=== PATIENT | female | born 1955 | race Caucasian/White ===

== ENCOUNTER → 2020-08-16 15:07 | Outpatient (CLI) | payer OTHER, SELFPAY ==
--- NOTE | ~2020-08-16 | MR_ITS ---
EXAMINATION: MR foot LT wo/w con DATE: 08/16/2020 16:07 INDICATION: Metatarsalgia at the left foot with lesion of the plantar nerve. TECHNIQUE: Magnetic resonance imaging (MRI) of the left fore/mid foot was performed without and with 10 mL Multihance intravenous contrast. Sequences included axial, sagittal and coronal T1-weighted FSE , axial and coronal T2-weighted FS FSE, sagittal fluid sensitive FSE STIR, axial T1-weighted FS FSE a nd postcontrast axial, sagittal and coronal T1-weighted FS FSE. A marker was placed at the site of ma ximal pain which is positioned plantar to the third toe. COMPARISON: None FINDINGS: Mild hallux valgus. Alignment is otherwise normal. Normal bone marrow signal throughout. No fracture or pathologic marrow replacing process. Mild osteoarthritis at the first metatarsophalangeal joint wi th mild subarticular edema at the articulation between the head of the first metatarsal and the tibia l sesamoid. Joint spaces are otherwise normal with no joint effusions. Lisfranc ligament complex and the collateral ligament complex at the metatarsophalangeal and interphalangeal joints are normal. The re is a 7 x 3 x 4 mm enhancing enhancing lesion in the subcutaneous tissues between the more superfic ial plantar aponeurosis and the deeper flexor digitorum brevis myotendinous junction located plantar to the head of the second metatarsal. No other abnormally enhancing lesions identified. Intrinsic mus cles which are of the foot is unremarkable. IMPRESSION: 1. 7 x 3 x 4 mm enhancing lesion plantar to the head of the second metatarsal with expected course of the common plantar digital nerve supplying the lateral side of the second toe and medial side of the right third toe. Unclear whether this represents a contrast-enhanced vascular structure or nonspecif ic enhancing soft tissue nodule with wide differential which would include schwannoma or neurofibroma . Reviewed, dictated and finalized at location A. IMPRESSION: 1. 7 x 3 x 4 mm enhancing lesion plantar to the head of the second metatarsal w ith expected course of the common plantar digital nerve supplying the lateral s thomas of the second toe and medial side of the right third toe. Unclear whether t his represents a contrast-enhanced vascular structure or nonspecific enhancing soft tissue nodule with wide differential which would include schwannoma or angel rofibroma.
[2020-08-16 15:32] LABS: Estimated Glomerular Filt Rate > 60
== END ==
PROVIDERS: PCP Family Medicine; Visit Provider Podiatrist Foot & Ankle Surgery
DX: G57.62 Lesion of plantar nerve, left lower limb (principal)
CPT/HCPCS: 73720; A9577

== ENCOUNTER → 2021-08-22 15:22 | Outpatient (CLI) | payer OTHER, SELFPAY ==
--- NOTE | ~2021-08-22 | CT_ITS ---
EXAMINATION: CT foot LT wo con DATE: 08/22/2021 15:46 INDICATION: Metatarsalgia with pain at the left second toe and metatarsal post surgery. TECHNIQUE: High resolution computed tomography (CT) of the left foot was performed without intravenou s contrast. Additional sagittal and coronal reconstructions were performed. Automated exposure contro l and iterative reconstruction technique were employed. The dose-length product was 182.36 mGy-cm. COMPARISON: MRI dated 08/16/2020 FINDINGS: Mild hallux valgus. Alignment is otherwise normal. Screw fixation at the head of the second metatarsal. The screw enters dorsally near the along the mar gin of the articular surface. There is chronic mild erosions with corticated margins along side the s crew as it enters the first metatarsal head as well as along the juxtaposed dorsal proximal articular surface of the second proximal phalanx. There is mild secondary osteoarthritis at the joint space. A dditional mild osteoarthritis at the first metatarsophalangeal joint and the second and third tarsal metatarsal joints. Soft tissues are unremarkable. IMPRESSION: 1. Mild osteoarthritis at the second metatarsophalangeal joint with small erosions at the dorsal head of the second metatarsal and juxtaposed dorsal proximal articular surface of the second proximal pha lanx which are likely related to the presence of a fixation screw at the head of the second metatarsa l. Reviewed, dictated and finalized at location B. IMPRESSION: 1. Mild osteoarthritis at the second metatarsophalangeal joint with small erosi ons at the dorsal head of the second metatarsal and juxtaposed dorsal proximal articular surface of the second proximal phalanx which are likely related to th e presence of a fixation screw at the head of the second metatarsal.
== END ==
PROVIDERS: PCP Family Medicine; Visit Provider Podiatrist Foot & Ankle Surgery
DX: M19.072 Primary osteoarthritis, left ankle and foot (principal)
CPT/HCPCS: 73700

== ENCOUNTER 2024-05-01 11:33 | Emergency (ER) | payer MEDICARE, OTHER, SELFPAY ==
--- NOTE | ~2024-05-01 | XR_ITS ---
CHEST RADIOGRAPH, PA AND LATERAL CLINICAL HISTORY: RML coarse; lower lobes diminished; wheezing . COMPARISON: None available TECHNIQUE: PA and lateral views of the chest. FINDINGS The cardiomediastinal silhouette is unremarkable. The lungs are clear. Visualized osseous structures and soft tissues are unremarkable. IMPRESSION: No focal infiltrate or effusion. Reviewed, dictated and finalized at location A. OR CARE PROVIDER
--- OUTSIDE RECORDS SUMMARY | 2024-05-01 11:37 | XMS_ITS | Continuity of Care Document ---
Author Organization [facility] Address [address] [address] [place] [address] Phone Care Team Providers Care Automobile Painter Name Role Phone Adalid CESAR, Melonie Unavailable Unavailable Allergies, Adverse Reactions, Alerts Substance Reaction Status Criticality codeine Active No Information levofloxacin Active No Information CODEINE PHOSPHATE Active No Informa tion acetaminophen Active No Information morphine Active No Information Medications Medication Instructions Dosage Effective Dates (start - stop) Status Comments MAGNESIUM (unknown strength) Not Available - Active TESTOSTERONE (unknown strength) Not Available - Active PROGESTERONE (unknown strength) Not Available - Active IRON (unknown strength) take 1 tablet by oral route 2 times every week Not Available - Active AQUA-E (unknown strength) Not Available - Active DHEA (unknown strength) Not Available - Active INOSITOL (unknown strength) Not Available - Active liothyronine 5 mcg tablet take 2 tablet by oral route every day 10 MCG - Active Probiotic 20 billion cell capsule take 1 capsule by oral route every day - Active H-RPLSKD-B-CYSTEINE (unknown strength) Not Available - Active MELATONIN (unknown strength) take 1-2 60 mg tabs by oral route nightly Not Available - Active ZINC (unknown strength) Not Available - Active ESTROGEN-METHYLTESTO STERONE (unknown strength) Not Available - Active Ryaltris 665 mcg-25 mcg/spray nasal spray spray 1 spray by intranasal route 2 times every day in each nostril 1 spray - Active Advair Diskus 250 mcg-50 mcg/dose powder for inhalation - Active ENZYME DIGEST (unknown strength) Not Available - Active PREGNENOLONE (unknown strength) take 100 mg by oral route 1 time every day Not Available - Active CYTO RALA (unknown strength) take 1 tablet by oral route every day Not Available - Active Wali-E 400 mg tablet take 1 tablet by oral route every other day - Active K2-D3 5000 (unknown strength) Use 10 drops daily Not Available - Active Synthroid 25 mcg tablet take 1 tablet by oral route every day 25 MCG - Active Procedures Procedure Date RADEX KNE COMPL 4/MORE VIEWS DRAIN/INJECT JOINT/BURSA OFFICE/OUTPATIENT VISIT EST RADEX KNE COMPL 4/MORE VIEWS OFFICE/OUTPATIENT VISIT EST Ketorolac tromethamine per 15mg injectio n Ropivacaine HCl injection Drugs unclassified injection DRAIN/INJECT JOINT/BURSA OFFICE/OUTPATIENT VISIT EST RADEX KNE COMPL 4/MORE VIEWS Methylprednisolone 80mg/ml inj 23 Ropivacaine HCl injection DRAIN/INJECT JOINT/BURSA OFFICE/OUTPATIENT VISIT EST Methylprednisolone 80mg/ml inj 23 Drugs unclassified injection DRAIN/INJECT JOINT/BURSA OFFICE/OUTPATIENT VISIT EST RADEX KNE 1/2 VIEWS Methylprednisolone 80mg/ml inj 23 Drugs unclassified injection DRAIN/INJECT JOINT/BURSA OFFICE/OUTPATIENT VISIT EST OFFICE/OUTPATIENT VISIT EST MRI JT Lower w/o Contrast X-RAY HIP UNI W PELVIS 2-3 VIEWS 2022 OFFICE/OUTPATIENT VISIT EST X-RAY HIP UNI W PELVIS 2-3 VIEWS 2021 Methylprednisolone 40mg/ml inj 22 Drugs unclassified injection DRAIN/INJECT JOINT/BURSA OFFICE/OUTPATIENT VISIT NEW Advance Directives Directive Yes / No Effective Date File Name No Information Encounters Encounter Description Practice Location Reason(s) For Visit Diagnoses Date Provider Providers Copied on Encounter OFFICE/OUTPA TIENT VISIT EST [facility], [address] [facility] [address], [place], [address], [place] tel:[phone] [facility] Primary osteoarthritis of left kneeRight knee pain, unspecified chronicityCont usion of right knee, initial encounterEffus ion of right knee 4 Adalid Melonie. [address], [place], [place], [address], [place]. tel:[phone] Referring Provider: Willy Rivera, [address] [place] [address], [place], [address] . tel:[phone] OFFICE/OUTPA TIENT VISIT EST [facility], [address] [facility] [address], [place], [address], [place] tel:[phone] [facility] Primary osteoarthritis of left knee 4 Adalid Melonie. [address], [place], [place], [address], [place]. tel:[phone] OFFICE/OUTPA TIENT VISIT EST [facility], [address] [address], [place], [address], [place] tel:[phone] [facility] Primary osteoarthritis of left knee 4 Adalid Melonie. [address], [place], [place], [address], [place]. tel:[phone] OFFICE/OUTPA TIENT VISIT EST [facility], [address] [facility] [address], [place], [address], [place] tel:[phone] [facility] Primary osteoarthritis of left knee 3 Adalid Melonie. [address], [place], [place], [address], [place]. tel:[phone] OFFICE/OUTPA TIENT VISIT EST [facility], [address] [facility] [address], [place], [address], [place] tel:[phone] [facility] Primary osteoarthritis of left knee Sep-04 27- 3 Adalid Wilhelm. [address], [place], [place], [address], [place]. tel:[phone] OFFICE/OUTPA TIENT VISIT EST [facility], [address] [facility] [address], [place], [address], [place] tel:[phone] [facility] Pain in left kneePrimary osteoarthritis of left knee Jun- 3 Osman Serna. [address], [place], [address]. tel:[phone] OFFICE/OUTPA TIENT VISIT EST [facility], [address] [facility] [address], [place], [address], [place] tel:[phone] [facility] Primary osteoarthritis of right hip Feb- 3 Pj Beltran. [address], [place], [place], [address]. tel:[phone] [facility], [address] [facility] [address], [place], [address], [place] tel:[phone] [facility] Pain in right hip b-2 0- 3 No Information Referring Provider: Ruby florentino, [address] [facility] [address], [place], [address] . tel:[phone] OFFICE/OUTPA TIENT VISIT EST [facility], [address] [facility] [address], [place], [address], [place] tel:[phone] [facility] Trochanteric bursitis of right hipPain in right hipPrimary osteoarthritis of right hip b- 3 Osman Serna. [address], [place], [address]. tel:[phone] Referring Provider: Mikal Christianson, [address], [place], [address]. tel:[phone] OFFICE/OUTPA TIENT VISIT NEW [facility], [address] [facility] [address], [place], [address], tel:[phone] [facility] Pain in right hipTrochanteri c bursitis of right hip Dedraalmas Charless. [address], [place], [place], [address]. tel:[phone] Referring Provider: Reji Marroquin M, [address], [place], [address]. tel:[phone] Family History Family Member Type Diagnosis Age At Onset Mother Problem Cancer, cervical Mother Problem Hypertension Sister Problem Cardiovascular disease Mother Problem Cancer, breast Father Problem Cardiovascular disease Payers Payer name Insurance type Covered democrat ID Jesse madrid(s) Medicare E2 OT [id number] [employer] - [facility] HMO/OAP/QCHP OT [id number] Social History Type Description Quantity Date Captured Comments Alcohol Use Details Unknown Caffeine Use Details Unknown Tobacco Use Status No Information Smoking Status No Information Sex Female Chief Complaint And Reason For Visit No Information Reason For Referral Reason For Referral No Information Plan Of Treatment Date Type Action Status Referral Ordered: RADEX KNE COMPL 4/MORE VIEWS Bilateral knee ordered Referral Ordered: RADEX KNE COMPL 4/MORE VIEWS RT knee ordered Referral Ordered: RADEX KNE COMPL 4/MORE VIEWS LT knee ordered Referral Ordered: RADEX KNE 1/2 VIEWS LT knee ordered Referral Ordered: MRI JT Lower w/o Contrast RT hip Appointment date/timeframe: 05/12/2022 ordered Referral Ordered: X-RAY HIP UNI W PELVIS 2-3 VIEWS RT hip ordered Appointment [place] Scheduled Patient Education Knee Arthritis: Exercis es completed Patient Education Hip Arthritis: Exercise s completed Patient Education Hip Bursitis: Exercises completed History Of Present Illness Encounter Date Complaint History Of Prese nt Illness No Information Functional Status Date Functional Assessmen t No Information Instructions Date Instruction Additional Infor mation No Information Assessments Type Assessment Date assessment Primary osteoarthritis of left k nee assessment Right knee pain, unspecified chr onicity assessment Contusion of right knee, initial encounter assessment Effusion of right knee 24 Patient Care Teams Name Effective Dates (start - stop) Status Members No Information
--- OUTSIDE RECORDS SUMMARY | 2024-05-01 11:39 | XMS_ITS | Encounter Summary ---
Author Organization [facility] Address [facility] [place] [address] Care Team Providers Care Floor Framer Name Role Phone Mikal Guevara MD Primary Care Provider [phone] Chip Claire DO Primary Care Provider [place] Dyer [facility] Primary Care Provid er Encounter Details Date Type Department Care Team (Late st Contact Info) Description 08/28/2018 Abstract [facility] CONVERSION [address] [place] [address] , Generic ConversionMD Social History Tobacco Use Types Packs/Day Years Used Date Smoking Tobacco: Never Assessed Comments Unknown Sex and Gender Information Value Date Recorded Sex Assigned at Not on file Legal Sex Female 7:24 PM CDT Gender Identity Not on file Sexual Orientation Not on file documented as of this encounter Plan of Treatment Not on file documented as of this encounter Visit Diagnoses Not on filedocumented in this encounter Additional Health Concerns Infection Onset Date Last Indicated Resolved Time COVID-19 Rule Out 04/28/2020 04/28/2020 04/29/2020 3:56 PM CAREER DEVELOPER COVID-19 Rule Out 12/08/2022 12/08/2022 12/08/2022 3:30 PM CDT documented as of this encounter Care Teams Floor Framer Relationship Specialty Start Date End Date Mikal Guevara MD PCP - General 05/16/15 08/12/21 Chip lCaire DO PCP - General FAMILY PRACTICE 08/13/21 06/26/23 [place] Dyer, CORSET MAKER- [address] [place] [address] PCP - General Nurse Practitioner Family 06/27/23 documented as of this encounter
--- OUTSIDE RECORDS SUMMARY | 2024-05-01 11:39 | XMS_ITS | Encounter Summary ---
Author Organization [facility] Address [address] [facility] [place] [address] Care Team Providers Care Form Presser Name Role Phone Unavailable Primary Care Provider Unavailabl e Encounter Details Date Type Department Care Team (Late st Contact Info) Description 05/14/2021 Lab Requisition [facility] DermPath Lab [address] [facility] [place] [address] Jose Salvador MD [address] [address] Social History Tobacco Use Types Packs/Day Years Used Date Smoking Tobacco: Never Alcohol Use Standard Drinks/Week Comments Yes 0 (1 standard drink = 0.6 oz pur e alcohol) Sex and Gender Information Value Date Recorded Sex Assigned at Not on file Gender Identity Not on file Sexual Orientation Not on file documented as of this encounter Plan of Treatment Not on file documented as of this encounter Procedures Procedure Name Priority Date/Time Associated Diagnosis Comments DERMATOPATHOLOGY Routine 05/14/2021 12:0 0 AM MANAGER FOREIGN documented in this encounter Results * DERMATOPATHOLOGY (05/14/2021 12:00 AM MANAGER FOREIGN) Case Report Dermatopathology Report Case: [id number] Authorizing Provider: Jose Salvador MD Collected: 05/14/2021 12:00 AM Ordering Location: [facility] DermPath Lab Received: 05/14/2021 04:43 PM Pathologist: Marlen Farris MD Specimen: Skin, right upper pinzon 10:58 AM [facility] DERMATOPATHOLOGY LABORATORY Final Diagnosis Specimen A. SKIN, right upper pinzon: SUPERFICIAL PORTIONS OF SQUAMOUS CELL CARCINOMA ARISING IN A SQUAMOUS CELL CARCINOMA IN SITU (C44.722) (see microscopic description) 2 10:58 AM [facility] DERMATOPATHOLOGY LABORATORY Clinical History SK vs BCCA vs MM. Path # [id number]. 10:58 AM [facility] DERMATOPATHOLOGY LABORATORY Gross Description Specimen A: Received is one formalin filled container labeled with the patient's name and designated right upper pinzon. The specimen consists of a shave biopsy measuring [id number]. Jar 0. 10:58 AM [facility] DERMATOPATHOLOGY LABORATORY Microscopic Description Specimen A. SKIN, right upper pinzon: The epidermis shows parakeratosis, full thickness disorderly maturation of keratinocytes, mitoses at different levels, and dyskeratotic cells. Focal nests are present in the dermis. 10:58 AM [facility] DERMATOPATHOLOGY LABORATORY Disclaimer An external and internal positive and negative controls are appropriate for the histochemical, immunohistochemical and immunofluorescence stain(s) in this case (if any), except where stated explicitly. The performance characteristics of the stain(s) cited in this report were developed and its performance characteristic determined by the Dermatopathology Laboratory at [facility], directed by Dr. Joel Alejo. These tests need not be, and therefore are not, approved by the [place] Food and Drug Administration. The tests are used for clinical purposes. Billing Codes Specimen Charges Stain Charges 61851 1 2 10:58 AM [facility] DERMATOPATHOLOGY LABORATORY Embedded Images 10:58 AM [facility] DERMATOPATHOLOGY LABORATORY Pathology/Cytolog y TISSUE SPECIMEN FROM SKIN / Unknown 05/14/2021 05/14/2021 4:43 PM MANAGER FOREIGN Jose Salvador MD LAB - PATHOLOGY/CYTO LOGY ORDERABLES DERMATOPATHOLOGY LABORATORY [facility] - Department of Dermatology [address] [phone] documented in this encounter Visit Diagnoses Not on filedocumented in this encounter
--- OUTSIDE RECORDS SUMMARY | 2024-05-01 11:39 | XMS_ITS | Encounter Summary ---
Author Organization [facility] Address [address] [place] [address] Care Team Providers Care Report Checker Name Role Phone Unavailable Primary Care Provider Unavailabl e Encounter Details Date Type Department Care Team (Late st Contact Info) Description 02/29/2020 Lab Requisition [facility] DermPath Lab [address] [place] [address] Jose Salvador MD [address] [place] [address] Social History Tobacco Use Types Packs/Day [...] Priority Date/Time Associated Diagnosis Comments DERMATOPATHOLOGY Routine 02/28/2020 12:0 0 AM CLINICAL NUTRITIONIST documented in this encounter Results * DERMATOPATHOLOGY (02/28/2020 12:00 AM CLINICAL NUTRITIONIST) Case Report Dermatopathology Report Case: [id number] Authorizing Provider: Jose Salvador MD Collected: 02/28/2020 12:00 AM Ordering Location: [facility] DermPath Lab Received: 02/29/2020 06:26 AM Pathologist: Hope Alejo MD Specimen: Skin, right chest 0 2:42 PM CLINICAL NUTRITIONIST DERMATOPATHOLOGY LABORATORY Final Diagnosis Specimen A. SKIN, right chest: SQUAMOUS CELL CARCINOMA IN SITU, PRESENT AT THE BASE OF THE SPECIMEN (D04.5) (see microscopic description and comment) 0 2:42 PM CLINICAL NUTRITIONIST DERMATOPATHOLOGY LABORATORY Clinical History BCCA vs SCCA. Path # [id number]. 0 2:42 PM CLINICAL NUTRITIONIST DERMATOPATHOLOGY LABORATORY Gross Description Specimen A: Received is one formalin filled container labeled with the patient's name and designated right chest. The specimen consists of a shave biopsy measuring [id number]. Jar 0. 0 2:42 PM [facility] DERMATOPATHOLOGY LABORATORY Microscopic Description Specimen A. SKIN, right chest: The epidermis shows parakeratosis, full thickness disorderly maturation of keratinocytes, mitoses at different levels, and dyskeratotic cells. The lesion extends to the base of the biopsy. COMMENT: An invasive squamous cell carcinoma cannot be ruled out. 0 2:42 PM CLINICAL NUTRITIONIST DERMATOPATHOLOGY LABORATORY Disclaimer An external and internal positive and negative controls are appropriate for the histochemical, immunohistochemical and immunofluorescence stain(s) in this case (if any), except where stated explicitly. The performance characteristics of the stain(s) cited in this report were developed and its performance characteristic determined by the Dermatopathology Laboratory at [facility], directed by Dr. Joel Alejo. These tests need not be, and therefore are not, approved by the [place] Food and Drug Administration. The tests are used for clinical purposes. Billing Codes Specimen Charges Stain Charges 57266 1 0 2:42 PM CLINICAL NUTRITIONIST DERMATOPATHOLOGY LABORATORY Embedded Images 0 2:42 PM CLINICAL NUTRITIONIST DERMATOPATHOLOGY LABORATORY Pathology/Cytolog y TISSUE SPECIMEN FROM SKIN / Unknown 02/28/2020 02/29/2020 6:26 AM CLINICAL NUTRITIONIST Jose Salvador MD LAB - PATHOLOGY/CYTO LOGY ORDERABLES DERMATOPATHOLOGY LABORATORY [facility] - Department of Dermatology [address] [phone] documented in this encounter Visit Diagnoses Not on filedocumented in this encounter
--- OUTSIDE RECORDS SUMMARY | 2024-05-01 11:39 | XMS_ITS | Encounter Summary ---
Author Organization [facility] Address [address] [place] [address] Care Team Providers Care Build Master Name Role Phone Unavailable Primary Care Provider Unavailabl e Encounter Details Date Type Department Care Team (Late st Contact Info) Description 05/21/2022 Lab Requisition [facility] DermPath Lab [address] [facility] [address] [place] [address] Jose Salvador MD [address] [place] [address] Social History Tobacco Use Types Packs/Day [...] Priority Date/Time Associated Diagnosis Comments DERMATOPATHOLOGY Routine 05/20/2022 12:0 0 AM REGIONAL OPERATIONS MANAGER documented in this encounter Results * DERMATOPATHOLOGY (05/20/2022 12:00 AM REGIONAL OPERATIONS MANAGER) Case Report Dermatopathology Report Case: [id number] Authorizing Provider: Jose Salvador MD Collected: 05/20/2022 12:00 AM Ordering Location: [facility] DermPath Lab Received: 05/21/2022 06:36 AM Pathologist: Dana Aburto MD Specimens: A) - Skin, left shoulder B) - Skin, right med upper ankle 3 2:26 PM [facility] DERMATOPATHOLOGY LABORATORY Final Diagnosis Specimen A. SKIN, left shoulder: SQUAMOUS CELL CARCINOMA, WELL DIFFERENTIATED (C44.629) Specimen B. 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 The specimen consists of a shave biopsy measuring 5x5x1 mm. Jar 0. Specimen B: Received is one formalin filled container labeled with the patient's name and designated right med upper ankle. The specimen consists of a shave biopsy measuring 7x6x1 mm. Jar 0. 3 2:26 PM [facility] DERMATOPATHOLOGY LABORATORY Microscopic Description Specimen A. SKIN, left shoulder: Arising in the epidermis and extending into the dermis there are irregularly shaped aggregates of keratinocytes showing evidence of premature cornification. Specimen B. SKIN, right med upper ankle: The epidermis shows parakeratosis, full thickness disorderly maturation of keratinocytes, mitoses at different levels, and dyskeratotic cells. 3 2:26 PM [facility] DERMATOPATHOLOGY LABORATORY Disclaimer An external and internal positive and negative controls are appropriate for the histochemical, immunohistochemical and immunofluorescence stain(s) in this case (if any), except where stated explicitly. The performance characteristics of the stain(s) cited in this report were developed and its performance characteristic determined by the Dermatopathology Laboratory at [facility], directed by Dr. Joel Alejo. These tests need not be, and therefore are not, approved by the [place] Food and Drug Administration. The tests are used for clinical purposes. Billing Codes Specimen Charges Stain Charges 91653 41535 1 1 3 2:26 PM REGIONAL OPERATIONS MANAGER DERMATOPATHOLOGY LABORATORY Embedded Images 2:26 PM REGIONAL OPERATIONS MANAGER DERMATOPATHOLOGY LABORATORY Pathology/Cytology TISSUE SPECIMEN FROM SKIN / Unknown 05/20/2022 05/21/2022 6:36 AM REGIONAL OPERATIONS MANAGER Miscellaneous samples (specimen) TISSUE SPECIMEN FROM SKIN / Unknown 05/20/2022 05/21/2022 6:36 AM REGIONAL OPERATIONS MANAGER Jose Salvador MD LAB - PATHOLOGY/CYTO LOGY ORDERABLES DERMATOPATHOLOGY LABORATORY [facility] - Department of Dermatology [facility] Medicine [address] [place] [address], [address] [phone] documented in this encounter Visit Diagnoses Not on filedocumented in this encounter
--- OUTSIDE RECORDS SUMMARY | 2024-05-01 11:39 | XMS_ITS | Referral Summary ---
Author Organization [facility] Address [address] [place] [address] Care Team Providers Care Delivery Recruiter Name Role Phone Donnell Mujica MD Unavailable [phone] Willy Rivera MD Primary Care Provider [phone] Allergies Active Allergy Reactions Criticality Noted Date Comments Chlorzoxazone Unknown 05/29/2014 Codeine Other (See comments) Low 09/22/2023 Heart racing Gluten Unknown 12/22/2012 Celiac disease House Dust Unknown 11/18/2022 Levofloxacin Other (See comments) Low 05/05/2011 Heart racing Mold Unknown 11/18/2022 Morphine Other (See comments) Low 01/05/2014 Heart racing Wheat Other (See comments) Low 11/18/2022 celciac Medications albuterol HFA (PROVENTIL HFA,VENTOLIN HFA,PROAIR HFA) 90 mcg/actuation inhaler Inhale 1-2 puffs 3 Active ascorbic acid (VITAMIN C) 1,000 mg tablet Take 2 tablets (2,000 mg total) by mouth daily Active testosterone micronized, bulk, 100 % powder by other route PELLET 200MG PELLET EVERY 3 MONTHS WHEN PELLET WORN DOWN USE 1 MG DAILY Active levothyroxine (SYNTHROID) 25 mcg tablet Take 1 tablet (25 mcg total) by mouth 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 Do not swallow. 60 each 5 4 Active Additional Information Patient not taking.Reported on 09/22/2023 acetylcysteine 500 mg capsule take 1 capsule by oral route 1-2 times every day Active cholecalciferol , vitD3,/vit K2 (vitamin D3-vitamin K2) 125-90 mcg capsule Use 10 drops daily Active ferrous sulfate 325 mg (65 mg of elemental iron) tablet Take 45 mg by mouth daily with breakfast 3 Active UNABLE TO FIND Med Name: 1. Alpha base capsule with iron one daily, 2. ANNATTO E SYNERGY 125 MG ONE Thursday AND THURSDAY, 3. VITAMIN E MIXED TOCOPHEROLS 1 DAILY AND 2 TABLET THURSDAY AND THURSDAY. 4. ENYZMES WITH MEAL 500 MG 2 WITH MEALS. 5. CARDIO B ONE DAILY, 6. DHEA 10 MG BEDTIME, 7. GREEN TEA DAILY, 8. CDG ESTRO DIM 300MG 2-1 TABS DAILY, 9. IODINE SYNERGY 10,000 1 TABLET 5 TIMES WEEKLY, 10. L-GLUTATHIONE 25 MG ONE DAILY, 11. MAGNESIUM TAURATE 125 MG NIGHTLY, 12. PREGNENOLONE 100 MG DAILY, PRO DHA OMEGA DAILY, 13. R LIOPIC ACID DBIOTIIB DAILY, 14. SAME LIQUID 72 MG DAILY, 15. TUDCA 100MG BID, 16. ZINC SUMPREME DAILY. THESE ALL ARE OTC SUPPLEMENTS Active magnesium amino acid chelate 100 mg tabletIndicatio ns:hypomagnesem ia Take 3.5 tablets (350 mg total) by mouth every other day 350MG 3 TABS AT NIGHT AND ONE DAILY IN AM Active melatonin 10 mg tablet Take 6 tablets (60 mg total) by mouth nightly Active acidophilus-pec tin, citrus 100 million cell-10 mg capsule Take 1 Caplet by mouth daily Active fluticasone propion-salmete roL (ADVAIR DISKUS) 250-50 mcg/dose diskus inhaler Inhale 1 puff daily as needed Rinse mouth with water after use. Do not swallow. Active estrogens, conjugated, (PREMARIN) vaginal cream Insert into the vagina daily 0.1-0.2 DAILY Active progesterone, micronized (progesterone, bulk,) 100 % powder Place 1.5 mg under the tongue every other day 6 DAYS BEDTIME HOLD ON THURSDAY Active UNABLE TO FIND - ENTER DRUG NAME IN NOTES TO PHARMACY MED NAME - RYALTRIS ONE SPRAY BID EACH NOSTIL Active liothyronine (CYTOMEL) 5 mcg tablet Take 1 tablet (5 mcg total) by mouth daily Active HYDROcodone-raul taminophen (NORCO) 5-325 mg per tabletIndicatio ns:Pain Take 1 tablet by mouth every 6 (six) hours as needed for pain 30 tablet 4 Active Active Problems Problem Noted Date Diagnosed Date Primary osteoarthritis of right hip 09/09/2023 Primary osteoarthritis of left knee 09/09/2023 Shortness of breath 10/07/2022 Assessment & Plan (03/19/2023 3:36 PM FOOD AND BEVERAGE INTERN): The patient has been doing very well with Advair HFA 230/21 1 puff daily and p.r.n. albuterol. I will hold off on another methacholine challenge at this time. She will follow up here in 6 months. Assessment & Plan (11/18/2022 11:53 AM CDT): The patient states that her symptoms have improved with use of Advair 1 puff daily. She is an albuterol inhaler to use on a p.r.n. basis. She will follow-up with me in 4 months. I will hold off on another methacholine challenge or formal exercise study for now. Assessment & Plan (10/07/2022 4:07 PM CDT): The patient had a negative methacholine challenge in the past. He has been wheezing and had shortness of breath several times earlier this year and did have COVID twice since 2020. I will check a chest x-ray in full PFTs and she will follow up here in 1 month. I did tell her to continue with the Flonase 2 puffs in the morning and Vicky at bedtime. I also told her to continue with Advair 250/51 puff b.i.d.. Hypothyroidism 08/17/2014 Cervical radiculopathy 08/17/2014 Lumbar radiculopathy 08/17/2014 Arthralgia of shoulder 03/06/2014 Degeneration of intervertebral disc of cervical region 01/05/2014 Knee pain 12/19/2013 Asthma 12/22/2012 Assessment & Plan (05/18/2020 8:51 AM FOOD AND BEVERAGE INTERN): The patient has a history of asthma and recently has developed dyspnea and cough. I have recommended proceeding with a methacholine challenge and I will also check a chest x-ray in an IgE level. Her eosinophil count was within normal limits on recent blood work. If the methacholine challenge is positive, I would recommend restarting Advair, Symbicort or Breo. Celiac disease 12/22/2012 Acute bronchospasm 07/30/2012 Allergic rhinitis 07/30/2012 Assessment & Plan (06/15/2020 9:53 AM CDT): Patient will continue to use her albuterol inhaler as needed up to 4 times a day for shortness of breath. Informed that if she does use her albuterol inhaler more than 2 times a week to call in to the clinic for a inhaler with steroid in it. The patient verbalized understanding. Neck pain 05/05/2011 Arm pain 05/24/2009 Resolved Problems Problem Noted Date Diagnosed Date Resolved Date BYRD (dyspnea on exertion) 06/15/2020 Social History Tobacco Use Types Packs/Day Years Used Date Smoking Tobacco: Never Smokeless Tobacco: Never AUDIT-C Answer Date Recorded Q1: How often do you have a drink containing alc ohol? Monthly or less 09/25/2023 Q2: How many drinks containi ng alcohol do you have on a typical day when you are drinking? 1 or 2 09/25/2023 Q3: How often do you have si x or more drinks on one occasion? Never 09/25/2023 Personal Safety Answer Date Recorded Have you ever been in or are you currently in a harmful physical or emotional relationship or is someone making you feel afraid or unsafe? Denies 09/25/2023 Comments Unknown Sex and Gender Information Value Date Recorded Sex Assigned at Not on file Legal Sex Female 5:18 AM FOOD AND BEVERAGE INTERN Gender Identity Not on file Sexual Orientation Not on file Last Filed Vital Signs Vital Sign Reading Time Taken Comments Blood Pressure 110/50 09/25/2023 3:25 PM CDT Pulse 62 09/25/2023 3:25 PM CDT Temperature 36.2 C (97.2 F) 09/25/2023 1:58 PM CDT Respiratory Rate 16 09/25/2023 3:25 PM CDT Oxygen Saturation 98% 09/25/2023 3:25 PM CDT Inhaled Oxygen Concentration - - Weight 53.1 kg (117 lb) 09/22/2023 3:07 PM CDT Height 165.1 cm (5' 5 ) 09/22/2023 3:07 PM CDT Body Mass Index 19.47 09/22/2023 3:07 PM CDT Plan of Treatment Not on file Medical Devices Implanted Type Area Green Building Architect Device Identifier Shelf Expiration Date Model / Serial / Lot Cervical And Lumbar Surgery Hardware Present N/A: Cervical-Denae mbar Spine [employer]/C R Bard Mesh Surgical Inguinal Hernia Synthetic Patch 3dmax 5x7in [id number] - [id number] Implanted:Qty: 1 on 09/25/2023 by Michael Simmons MD at [facility] Left: Abdomen [employer]/C R Bard [id number] 01/18/2028 [id number] / / [id number] Procedures Procedure Name Priority Date/Time Associated Diagnosis Comments DEXA AXIAL SKELETON BONE DENSITY 1 OR MORE SITES Routine 07/03/2017 9:00 AM CDT from Last 3 Months or Most Recently Relevant to Health Maintenance Results * Dexa Axial Skeleton Bone Density 1 or 2 Site (07/03/2017 9:00 AM CDT) Anatomical Region Laterality Modality Body N/A Radiographic Jeannie ging 07/03/2017 9:00 AM CDT Impressions 07/03/2017 10:37 AM CDT Low bone mass. FRAX as above. Bone mineral density: Normal (T-score above or = -1.0) Low bone mass (T-score between -1.0 and -2.5) replaces the previously used term osteopenia Osteoporosis (T-score = or below -2.5) Medical evaluation for secondary causes of low bone mineral density may be appropriate. FRAX is a World Health Organization validated fracture risk assessment tool that calculates a person's 10 year probability of a major osteoporosis related fracture and hip fracture. According to the National Osteoporosis Foundation guidelines, postmenopausal women and men age 50 or older with low bone mass and a 10 year probability of a major osteoporosis related fracture = or greater than 20% or a 10 year probability of a hip fracture = or greater than 3% should be considered for treatment. For further information, including treatment recommendations, please refer to the 2013 ISCD Official Positions (http://www.iscd.org) and the NOF's Clinician's Guide to Prevention and Treatment of Osteoporosis (http://www.nof.org/professionals/clinical-guidelines) THIS IS AN ELECTRONICALLY VERIFIED FINAL REPORT 07/03/2017 10:34 AM - Electronically signed by Manny Galicia D.O. BW: QUINTEN Report ID: [id number] Reading Location: [id number] [EOD] Narrative 07/03/2017 10:37 AM CDT EXAM DESCRIPTION: Bone Density Hip/Spine (STD) COMPLETED DATE/TIME: 07/03/2017 9:32 am REASON FOR STUDY: 62 y/o year old F with given history of screening. Green Building Architect/Model: Tumbie A (S/N [id number]) CLINICAL INFORMATION: Current height: 66.5 inches Maximum height: 67 inches Weight: 125 pounds Risk factors: Current previous use of vitamin-D. The patient regularly performed weight-bearing exercise. Patient does not regularly consume dairy ordering caffeinated beverages. COMPARISON: None available. This will serve as a new baseline. Acquisition of a new DXA machine precludes comparison with older exams due to differences in scan type. FINDINGS: AP LUMBAR SPINE L1-L4: Total BMD is 1.163 g/cm2 T-score is 1.1 LEFT HIP: Total BMD is 0.820 g/cm2 T-score is -1.0 Femoral neck BMD is 0.693 g/cm2 T-score is -1.4 Fracture risk assessment (FRAX): 10 year risk for a major osteoporotic fracture is 6.8 % 10 year risk for a hip fracture is 0.6 % The FRAX tool has not been validated in patients currently or previously treated with pharmacotherapy for osteoporosis. In such patients, clinical judgement must be exercised in interpreting FRAX scores as the fracture risk may be overestimated. Procedure Note Provider, MD Van - 08/07/2020 EXAM DESCRIPTION: Bone Density Hip/Spine (STD) COMPLETED DATE/TIME: 07/03/2017 9:32 am REASON FOR STUDY: 62 y/o year old F with given history of screening. Green Building Architect/Model: Tumbie A (S/N [id number]) CLINICAL INFORMATION: Current height: 66.5 inches Maximum height: 67 inches Weight: 125 pounds Risk factors: Current previous use of vitamin-D. The patient regularly performed weight-bearing exercise. Patient does not regularly consumedairy ordering caffeinated beverages. COMPARISON: None available. This will serve as a new baseline. Acquisition of a new DXA machineprecludes comparison with older exams due to differences in scan type. FINDINGS: AP LUMBAR SPINE L1-L4: Total BMD is 1.163 g/cm2 T-score is 1.1 LEFT HIP: Total BMD is 0.820 g/cm2 T-score is -1.0 Femoral neck BMD is 0.693 g/cm2 T-score is -1.4 Fracture risk assessment (FRAX): 10 year risk for a major osteoporotic fracture is 6.8 % 10 year risk for a hip fracture is 0.6 % The FRAX tool has not been validated in patients currently or previously treated with pharmacotherapy for osteoporosis. In such patients, clinical judgement must be exercised in interpreting FRAX scores as the fracturerisk may be overestimated. IMPRESSION: Low bone mass. FRAX as above. Bone mineral density: Normal (T-score above or = -1.0) Low bone mass (T-score between -1.0 and -2.5) replaces the previously used term osteopenia Osteoporosis (T-score = or below -2.5) Medical evaluation for secondary causes of low bone mineral density may be appropriate. FRAX is a World Health Organization validated fracture risk assessmenttool that calculates a person's 10 year probability of a major osteoporosisrelated fracture and hip fracture. According to the National OsteoporosisFoundation guidelines, postmenopausal women and men age 50 or older with low bonemass and a 10 year probability of a major osteoporosis related fracture = or greater than 20% or a 10 year probability of a hip fracture = or greaterthan 3% should be considered for treatment. For further information, including treatment recommendations, please referto the 2013 ISCD Official Positions (http://www.iscd.org) and the NOF's Clinician's Guide to Prevention and Treatment of Osteoporosis (http://www.nof.org/professionals/clinical-guidelines) THIS IS AN ELECTRONICALLY VERIFIED FINAL REPORT 07/03/2017 10:34 AM - Electronically signed by Manny Galicia D.O. BW: QUINTEN Report ID: [id number] Reading Location: [place] [address] [EOD] Betito Dickerson MD IMG DXA PROCEDURES Final Re sult from Last 3 Months or Most Recently Relevant to Health Maintenance [facility] Care Teams Delivery Recruiter Relationship Specialty Start Date End Date Willy Rivera MD [phone] [address] PCP - General Internal Medicine 09/09/23 Donnell Mujica MD [address] [address] Consulting Physician Cardiovascular Disease 09/09/23
--- OUTSIDE RECORDS SUMMARY | 2024-05-01 11:39 | XMS_ITS | Encounter Summary ---
Author Organization [facility] Address [address] [place] [address] Care Team Providers Care Physical Damage Appraiser Name Role Phone Unavailable Primary Care Provider Unavailabl e Encounter Details Date Type Department Care Team (Late st Contact Info) Description 11/19/2022 Lab Requisition [facility] - DermPath Lab [address] [facility] [place] [id number] Jose Salvador MD [address] [place] [address] Social History Tobacco Use Types [...] Priority Date/Time Associated Diagnosis Comments DERMATOPATHOLOGY Routine 11/18/2022 3:33 AM CDT documented in this encounter Results * DERMATOPATHOLOGY (11/18/2022 3:33 AM CDT) Case Report Dermatopathology Report Case: [id number] Authorizing Provider: Jose Salvador MD Collected: 11/18/2022 03:33 AM Ordering Location: [facility] DermPath Lab Received: 11/19/2022 07:10 AM Pathologist: Hope Alejo MD Specimens: A) - Skin, right shoulder B) - Skin, left medial pinzon 4:39 PM [facility] DERMATOPATHOLOGY LABORATORY Final Diagnosis Specimen A. SKIN, right shoulder: BASAL CELL CARCINOMA, SUPERFICIAL MULTIFOCAL (C44.519) Specimen B. SKIN, left medial pinzon: SQUAMOUS CELL CARCINOMA IN SITU, PRESENT AT THE BASE OF THE SPECIMEN (D04.72) (see microscopic description and comment) 4:39 PM [facility] DERMATOPATHOLOGY LABORATORY Clinical History A: BCCA vs SCCA Path#[id number] B: BCCA vs SCCA Path#[id number] 4:39 PM [facility] DERMATOPATHOLOGY LABORATORY Gross Description Specimen A: Received is one formalin filled container labeled with the patient's name and designated right shoulder. The specimen consists of a shave biopsy measuring 9x6x1 mm. Jar 0. Specimen B: Received is one formalin filled container labeled with the patient's name and designated left medial pinzon. The specimen consists of a shave biopsy measuring 6x5x2 mm. Jar 0. 4:39 PM [facility] DERMATOPATHOLOGY LABORATORY Microscopic Description Specimen A. SKIN, right shoulder: Attached to the undersurface of the epidermis, there are small aggregates of basaloid cells with a high nuclear to cytoplasmic ratio and peripheral palisading. Specimen B. SKIN, left medial pinzon: The epidermis shows parakeratosis, full thickness disorderly maturation of keratinocytes, mitoses at different levels, and dyskeratotic cells. The lesion extends to the base of the biopsy. COMMENT: An invasive squamous cell carcinoma cannot be ruled out. 4:39 PM [facility] DERMATOPATHOLOGY LABORATORY Disclaimer An external and internal positive and negative controls are appropriate for the histochemical, immunohistochemical and immunofluorescence stain(s) in this case (if any), except where stated explicitly. The performance characteristics of the stain(s) cited in this report were developed and its performance characteristic determined by the Dermatopathology Laboratory at [facility], directed by Dr. Joel Alejo. These tests need not be, and therefore are not, approved by the [place] Food and Drug Administration. The tests are used for clinical purposes. Billing Codes Specimen Charges Stain Charges 98349 [id number] 1 1 3 4:39 PM CDT DERMATOPATHOLOGY LABORATORY Embedded Images 3 4:39 PM CDT DERMATOPATHOLOGY LABORATORY Pathology/Cytology TISSUE SPECIMEN FROM SKIN / Unknown 11/18/2022 3:33 AM CDT 11/19/2022 7:10 AM CDT Miscellaneous samples (specimen) TISSUE SPECIMEN FROM SKIN / Unknown 11/18/2022 3:33 AM CDT 11/19/2022 7:10 AM CDT Jose Salvador MD LAB - PATHOLOGY/CYTO LOGY ORDERABLES DERMATOPATHOLOGY LABORATORY [facility] - Department of Dermatology [facility] [address] [place] [address], [address] [phone] documented in this encounter Visit Diagnoses Not on filedocumented in this encounter
--- OUTSIDE RECORDS SUMMARY | 2024-05-01 11:39 | XMS_ITS | Clinical Summary ---
Author Organization [facility] Address Replaced by [facility] [address] [place] [address] Care Team Providers Care Electrolytic De Scaler Name Role Phone [facility] Provid er Allergies Active Allergy Reactions Criticality Noted Date Comments Acetaminophen-Codeine Unknown 07/30/2012 Codeine Unknown 05/24/2009 Gluten Meal Unknown 12/22/2012 Levofloxacin Unknown 05/05/2011 Morphine Unknown 05/24/2009 Moxifloxacin Unknown 05/29/2014 Naproxen Unknown 05/24/2009 Rofecoxib Unknown 05/24/2009 Medications vitamin C 1000 MG tablet Active Calcium-Vitamin D-Vitamin K 500-100-40 MG-UNT-MCG Chew Tab Active Cholecalciferol (VITAMIN D3) 25 MCG (1000 UT) Cap Active Digestive Enzymes (ENZYME DIGEST) Cap 4 Active Ferrous Gluconate (IRON) 240 (27 Fe) MG Tab Active levothyroxine 25 MCG tablet 1 tablet (25 mcg total). 1 Active liothyronine 5 MCG Tab Take 2 tablets (10 mcg total) by mouth daily. 1 Active Melatonin 1 MG Cap Active Nutritional Supplements (DHEA) 15-50 MG Cap Active Progesterone Powder 4 Active Testosterone Powder Active testosterone (ANDROGEL) 1% gel testosterone Active estradiol (ESTRACE VAGINAL) 0.1 MG/GM vaginal cream Active linaCLOtide (LINZESS OR) Linzess Active Testosterone Micronized Powder 3 Active albuterol sulfate HFA 108 (90 Base) MCG/ACT inhalerIndicatio ns:Mild intermittent asthma with acute exacerbation ([facility]/HCC) Inhale 2 puffs into the lungs every 6 (six) hours as needed. 18 g 4 Active DHEA 10 MG Cap Take 10 mg by mouth daily. Active montelukast (SINGULAIR) 10 MG tablet Take 1 tablet (10 mg total) by mouth nightly at bedtime. 4 Active fluticasone-salm eterol (ADVAIR DISKUS) 100-50 MCG/ACT inhaler Inhale 1 puff into the lungs 2 (two) times daily. 4 Active Active Problems Problem Noted Date Diagnosed Date Lumbar radiculopathy 08/17/2014 Hypothyroidism 08/17/2014 Arthralgia of shoulder 03/06/2014 Degeneration of intervertebral disc of cervical region 01/05/2014 Knee pain 12/19/2013 Celiac disease ([facility]) 12/22/2012 Acute bronchospasm 07/30/2012 Allergic rhinitis 07/30/2012 Neck pain 05/05/2011 Arm pain 05/24/2009 Resolved Problems Problem Noted Date Diagnosed Date Resolved Date Asthma ([facility]/HCC) 12/22/2012 03/10/2022 Asthma ([facility]) 12/22/2012 06/29/2023 Overview (03/12/2021): Last Assessment & Plan: The patient has a history of asthma and recently has developed dyspnea and cough. I have recommended proceeding with a methacholine challenge and I will also check a chest x-ray in an IgE level. Her eosinophil count was within normal limits on recent blood work. If the methacholine challenge is positive, I would recommend restarting Advair, Symbicort or Breo. Allergic rhinitis 07/30/2012 03/10/2022 Overview (03/12/2021): Last Assessment & Plan: Patient will continue to use her albuterol inhaler as needed up to 4 times a day for shortness of breath. Informed that if she does use her albuterol inhaler more than 2 times a week to call in to the clinic for a inhaler with steroid in it. The patient verbalized understanding. Encounter for preventive health examination 03/29/2012 04/30/2020 Family History Medical History Relation Comments Breast Cancer Mother Relation Status Comments Mother Social History Tobacco Use Types Packs/Day Years Used Date Smoking Tobacco: Never Assessed Smokeless Tobacco: Never Tobacco Cessation:Counseling Given: Yes PHQ-2 Answer Date Recorded Patient Health Questionnaire-2 Score 0 06/29/2023 Comments No Sex and Gender Information Value Date Recorded Sex Assigned at Not on file Legal Sex Female 7:24 PM CDT Gender Identity Not on file Sexual Orientation Not on file Last Filed Vital Signs Vital Sign Reading Time Taken Comments Blood Pressure 104/0 08/04/2023 1:49 PM CDT pulse heard down to zero Pulse 53 08/04/2023 1:49 PM CDT Temperature 36.8 C (98.2 F) 06/29/2023 3:02 PM CDT Respiratory Rate 20 08/04/2023 1:49 PM CDT Oxygen Saturation 100% 08/04/2023 1:4 9 PM CDT Inhaled Oxygen Concentration - - Weight 55.9 kg (123 lb 3.2 oz) 08/04/2023 1:49 PM CDT Height 168.9 cm (5' 6.5 ) 06/29/2023 3: 02 PM CDT Body Mass Index 19.59 06/29/2023 3:02 PM CDT Plan of Treatment Health Maintenance Due Date Last Done Comments Pneumococcal Vaccine: 65+ Years (1 of 2 - PCV) 06[birth year]07/1961 Hepatitis C 06/07/1975 Zoster Vaccines (1 of 2) 06/07/2007 RSV Immunization or 60+ Years (1 - Risk 60-74 years 1-dose series) 2017 Annual Medicare Wellness Visit 2022 COVID-19 Vaccine ( - season) 2023 Influenza Adult (#1) 2023 PHQ-2 (Physician [place]) 03/23/2024 06/29/2023 PHQ-2 (Physician [place]) 06/28/2024 06/29/2023 Mammogram Screening 12/24/2025 12/25/2023, 08/14/2022, 12/14/2020, Additional history exists Colorectal Cancer Screening FIT-DNA (3 Years) 08/18/2026 08/19/2023, 08/19/2023 DTaP, Tdap and Td Vaccines (2 - Td or Tdap) 07/19/2033 07/20/2023 Colorectal Cancer Screening Colonoscopy (10 Years) Discontinued 06/26/2017, 06/26/2017 Dexa Scan (General) Completed 07/22/2022, 07/03/2017, 07/03/2017 Meningococcal B Vaccine Aged Out No l onger eligible based on patient's age to complete this topic Meningococcal Vaccine Aged Out No nishi heena eligible based on patient's age to complete this topic RSV Immunizations Under 20 Months Aged Out No longer eligible based on patient's age to complete this topic Procedures Procedure Name Priority Date/Time Associated Diagnosis Comments MG SCREENING W TYESHA TREVON DIGI Routine 12/25/2023 3:24 PM CDT Encounter for screening mammogram for malignant neoplasm of breast COLOGUARD (EXACT SCIENCE) Routine 08/19/2023 9:00 AM CDT Screening for colon cancer BONE DENSITY/DEXA Routine 07/22/2022 10: 33 AM CDT Post-menopausal COLONOSCOPY GENERIC (SCAN ORDER) Routine 06/26/2017 from Last 3 Months or Most Recently Relevant to Health Maintenance Results * MG SCREENING W TYESHA TREVON DIGI (12/25/2023 3:24 PM CDT) Anatomical Region Laterality Modality Breast Bilateral Mammography 12/25/2023 5:40 PM CDT Impressions 12/25/2023 5:47 PM CDT IMPRESSION: No significant interval change. No mammographic evidence of malignancy. RECOMMENDATION: Routine ScreeningBilateral OVERALL IMAGING ASSESSMENT: ACR BI-RADS 2 - BENIGN FINDING(S). Ordered By: BENNETT GRIFFITH Interpreted By: Levar Nation, 12/25/2023 5:40 PM Narrative 12/25/2023 5:47 PM CDT [facility] [address] [place] [address] EXAMINATION: MG SCREENING W TYESHA TREVON DIGI INDICATIONS: Screening TECHNIQUE: Digital full field CC and MLO screening mammography bilaterally to include 3-D Tomosynthesis technique. This study was read with the assistance of a computer-aided detection system. HISTORY: No reported breast complaint. Family history of breast cancer in mother at age 70. No documented personal history of breast cancer or prior breast biopsy. COMPARISON: Multiple prior examinations available for comparison dating back to 01/01/2007, the most recent of 08/14/2022, 12/14/2020, and 04/28/2018. TISSUE DENSITY: The breasts are heterogeneously dense, which may obscure small masses. FINDINGS: Few typically benign round and vascular calcifications. No suspicious microcalcification or mass. No developing asymmetry or architectural distortion. No axillary adenopathy. us Bennett Griffith MD MAMMO Final Result * COLOGUARD ([employer]) (08/19/2023 9:00 AM CDT) COLOGUARD RESULT Negative Negative [facility] (CLIA #:[id number]) Comment: NEGATIVE TEST RESULT. A negative Cologuard result indicates a low likelihood that a colorectal cancer (CRC) or advanced adenoma (adenomatous polyps with more advanced pre-malignant features) is present. The chance that a person with a negative Cologuard test has a colorectal cancer is less than 1 in 1500 (negative predictive value >99.9%) or has an advanced adenoma is less than 5.3% (negative predictive value 94.7%). These data are based on a prospective cross-sectional study of 10,000 individuals at average risk for colorectal cancer who were screened with both Cologuard and colonoscopy. (Michele Colon et al, N Engl J Med 2014;370(14):0026-8934) The normal value (reference range) for this assay is negative. COLOGUARD RE-SCREENING RECOMMENDATION: Periodic colorectal cancer screening is an important part of preventive healthcare for asymptomatic individuals at average risk for colorectal cancer. Following a negative Cologuard result, the [employer] and U.S. Multi-Society Task Force screening guidelines recommend a Cologuard re-screening interval of 3 years. References: [employer] Guideline for Colorectal Cancer Screening: https://www.cancer.org/cancer/gxxjo-iwrdfp-opyjnf/tzkittpuu-ybsrudtmo-kjkmwfs/ac s-rec ommendations.html.; Anselmo MARCUS, Juan Jose AMOR, Alireza MONACO, Colorectal Cancer Screening: Recommendations for Physicians and Patients from the U.S. Multi-Society Task Force on Colorectal Cancer Screening , Am J Gastroenterology 2017; 112:9250-8667. TEST DESCRIPTION: Composite algorithmic analysis of stool DNA-biomarkers with hemoglobin immunoassay. Quantitative values of individual biomarkers are not reportable and are not associated with individual biomarker result reference ranges. Cologuard is intended for colorectal cancer screening of adults of either sex, 45 years or older, who are at average-risk for colorectal cancer (CRC). Cologuard has been approved for use by the U.S. FDA. The performance of Cologuard was established in a cross sectional study of average-risk adults aged 50-84. Cologuard performance in patients ages 45 to 49 years was estimated by sub-group analysis of near-age groups. Colonoscopies performed for a positive result may find as the most clinically significant lesion: colorectal cancer [4.0%], advanced adenoma (including sessile serrated polyps greater than or equal to 1cm diameter) [20%] or non- advanced adenoma [31%]; or no colorectal neoplasia [45%]. These estimates are derived from a prospective cross-sectional screening study of 10,000 individuals at average risk for colorectal cancer who were screened with both Cologuard and colonoscopy. (Michele Valdez. et al, N Engl J Med 2014;370(14):0409-2289.) Cologuard may produce a false negative or false positive result (no colorectal cancer or precancerous polyp present at colonoscopy follow up). A negative Cologuard test result does not guarantee the absence of CRC or advanced adenoma (pre-cancer). The current Cologuard screening interval is every 3 years. ([employer] and U.S. Multi-Society Task Force). Cologuard performance data in a 10,000 patient pivotal study using colonoscopy as the reference method can be accessed at the following location: www.zeenworld/results. Additional description of the Cologuard test process, warnings and precautions can be found at www.cologuard.com. STOOL STOOL SPECIMEN / Unknown 08/19/2023 9:00 AM CDT 08/20/2023 9:48 AM CDT us Brendon Morales MD BODY FLUIDS AND STOOLS ORDERABLE S Final Result [facility] ([facility]) [address] [place] [address], [facility] (CLIA #:[id number]) [address] [place] [address] * BONE DENSITY/DEXA (07/22/2022 10:33 AM CDT) Anatomical Region Laterality Modality Bone Bone Density 07/22/2022 3:53 PM CDT Impressions 07/22/2022 3:54 PM CDT IMPRESSION: WHO Classification: Osteopenia RECOMMENDATIONS: All patients should ensure an adequate intake of dietary calcium and vitamin D. The NOF recommend adults under the age of 50 need 1000 mg of calcium and 400-800 IU of vitamin D daily. Effective therapy for the prevention and treatment of osteoporosis include bisphosphonates. FOLLOW-UP: People with diagnosed cases of osteoporosis or at high risk for fracture should have regular bone mineral density test. For patients eligible for Medicare, routine testing is allowed once every 2 years. Testing frequency can be increased to one year for patients who have rapidly progressing disease, those who are receiving or discontinuing medical therapy to restore bone mass, or have additional risk factors. Ordered By: BETITO DARNELL Interpreted By: Levar Nation, 07/22/2022 3:53 PM Narrative 07/22/2022 3:54 PM CDT EXAMINATION: BONE DENSITY/DEXA INDICATIONS: Asymptomatic menopausal state COMPARISON: None TECHNIQUE: DEXA bone mineral density evaluation was performed in the AP projection over the lumbar spine and both hips utilizing standard imaging techniques. FINDINGS: The BMD measured at the AP spine L1-L4 is 1.256 g/cm? with a T-score of 1.9. The BMD measured at the left femoral neck is 0.709 g/cm? with a T-score of -1.3. The BMD measured at the left hip is 0.836 g/cm? with a T-score of -0.9. The BMD measured at the right femoral neck is 0.706 g/cm? with a T-score of - 1.3. The BMD measured at the right hip is 0.797 g/cm? with a T-score of -1.2. FRAX 10-year fracture risk: Major Osteoporotic Fracture: 7.3% Hip Fracture: 0.7% Procedure Note Levar Nation MD - 07/22/2022 EXAMINATION: BONE DENSITY/DEXA INDICATIONS: Asymptomatic menopausal state COMPARISON: None TECHNIQUE: DEXA bone mineral density evaluation was performed in the APprojection over the lumbar spine and both hips utilizing standard imagingtechniques. FINDINGS: The BMD measured at the AP spine L1-L4 is 1.256 g/cm? with a T-score of1.9. The BMD measured at the left femoral neck is 0.709 g/cm? with a T-score of-1.3. The BMD measured at the left hip is 0.836 g/cm? with a T-score of -0.9. The BMD measured at the right femoral neck is 0.706 g/cm? with a T-scoreof -1.3. The BMD measured at the right hip is 0.797 g/cm? with a T-score of -1.2. FRAX 10-year fracture risk: Major Osteoporotic Fracture: 7.3% Hip Fracture: 0.7% IMPRESSION: WHO Classification: Osteopenia RECOMMENDATIONS: All patients should ensure an adequate intake of dietary calcium andvitamin D. The NOF recommend adults under the age of 50 need 1000 mg ofcalcium and 400-800 IU of vitamin D daily. Effective therapy for theprevention and treatment of osteoporosis include bisphosphonates. FOLLOW-UP: People with diagnosed cases of osteoporosis or at high risk for fractureshould have regular bone mineral density test. For patients eligible forMedicare, routine testing is allowed once every 2 years. Testing frequencycan be increased to one year for patients who have rapidly progressingdisease, those who are receiving or discontinuing medical therapy torestore bone mass, or have additional risk factors. Ordered By: BETITO DARNELL Interpreted By: Levar Nation, 07/22/2022 3:53 PM Betito Darnell MD DEXA Final Result * COLONOSCOPY (06/26/2017) us Documents Scanned SCANNING Final Result [facility]SA SPANN from Last 3 Months or Most Recently Relevant to Health Maintenance Insurance [facility] MEDIC[facility] Advance Directives Documents on File Type Date Recorded Patient Link Wire Fabric Machine Tender Expl anation Advance Directives and Living Will 06/30/2017 POA Advance Directives and Living Will 06/30/2017 LIVING WILL Care Teams Electrolytic De Scaler Relationship Specialty Start Date End Date Albania Dyer, SUBSTATION OPERATOR HELPER-[employer] [address] [place] [address] PCP - General Nurse Practitioner Family 06/27/23
--- OUTSIDE RECORDS SUMMARY | 2024-05-01 11:39 | XMS_ITS | Encounter Summary ---
Author Organization [facility] Address [address] [place] [address] Care Team Providers Care Computer Hardware Technician Name Role Phone Unavailable Primary Care Provider Unavailabl e Encounter Details Date Type Department Care Team (Late st Contact Info) Description 01/16/2022 Lab Requisition [facility] [address] [place] [address] Jose Salvador MD [address] [address] Social History Tobacco Use Types [...] Priority Date/Time Associated Diagnosis Comments DERMATOPATHOLOGY Routine 01/14/2022 12:0 0 AM CDT documented in this encounter Results * DERMATOPATHOLOGY (01/14/2022 12:00 AM CDT) Case Report Dermatopathology Report Case: [id number] Authorizing Provider: Jose Salvador MD Collected: 01/14/2022 12:00 AM Ordering Location: [facility] Received: 01/16/2022 08:17 AM Pathologist: Marlen Farris MD Specimen: Skin, left thigh 1:08 PM CDT DERMATOPATHOLOGY LABORATORY Final Diagnosis Specimen A. SKIN, left thigh: SQUAMOUS CELL CARCINOMA, KERATOACANTHOMA TYPE; SUPERFICIAL PORTIONS OF (C44.729) (see microscopic description) 1:08 PM CDT DERMATOPATHOLOGY LABORATORY Clinical History [facility]. Path# [id number] 1:08 PM CDT DERMATOPATHOLOGY LABORATORY Gross Description Specimen A: Received is one formalin filled container labeled with the patient's name and designated left thigh. The specimen consists of a shave biopsy measuring 8m5w5rd. Jar 0. 1:08 PM CDT DERMATOPATHOLOGY LABORATORY Microscopic Description Specimen A. SKIN, left thigh: Sections show superficial portions of an endo exophytic crateriform lesion with a keratotic plug, formed by confluent follicle-like structures with relatively large keratinocytes and neutrophilic abscesses. 1:08 PM CDT DERMATOPATHOLOGY LABORATORY Disclaimer An external and internal positive and negative controls are appropriate for the histochemical, immunohistochemical and immunofluorescence stain(s) in this case (if any), except where stated explicitly. The performance characteristics of the stain(s) cited in this report were developed and its performance characteristic determined by the Dermatopathology Laboratory at [facility], directed by Dr. Joel Alejo. These tests need not be, and therefore are not, approved by the [place] Food and Drug Administration. The tests are used for clinical purposes. Billing Codes Specimen Charges Stain Charges 47385 1 1:08 PM CDT DERMATOPATHOLOGY LABORATORY Embedded Images 1:08 PM CDT DERMATOPATHOLOGY LABORATORY Pathology/Cytolog y TISSUE SPECIMEN FROM SKIN / Unknown 01/14/2022 01/16/2022 8:17 AM CDT Jose Salvador MD LAB - PATHOLOGY/CYTO LOGY ORDERABLES DERMATOPATHOLOGY LABORATORY [facility] - Department of Dermatology [address] [phone] documented in this encounter Visit Diagnoses Not on filedocumented in this encounter
--- OUTSIDE RECORDS SUMMARY | 2024-05-01 11:39 | XMS_ITS | Data Portability ---
Author Organization [facility], [employer] Address [address] [facility] [address] [place] [address] Assessment Encounter Date Assessment Date Assessment LastModified by Organization Details LastModified Time 07/14/2023 07/14/2023 New patient presented for admission to the practice. Studies ordered as below. Discussed plan with patient, who expressed understanding . Follow up as noted below. [email or web address] Not available 07/14/2023 15:49:25 Plan of Treatment Reminders Order Date Submit Date Provider Last Modified By Organization Details Last Modified Time Details Appointments None recorded. Lab hepatitis C Ab, serum 2023 024 [facility], [address], [address], 4 16:28:19 ige, total, serum 2023 024 [facility], [address], [address], 4 18:07:53 CBC w/ auto diff 2023 024 [facility], [address] [employer] [address], [address], 4 18:07:50 MIREYA (antinucle ar antibodies ) screen, serum 2023 024 [facility], [address], [address], 4 18:07:52 C reactive protein, QN, serum or plasma 2023 024 [facility], [address] [facility] [address], [place], [address], 4 12:01:00 TSH + free T4, serum 2023 024 [facility], [address], [place], [address], 4 18:07:48 lipid panel w/ direct LDL, serum 2023 024 [facility], [address], [place], [address], 4 12:00:59 CMP, serum or plasma 2023 024 [facility], [address], [address], 4 18:07:49 Referral general surgeon referral 2023 024 [facility], [address] [facility] [address], [place], [address], 4 17:46:[address] referral 2023 024 [email or web address] Ruben Lawrence MD, [address] [place], [address], 4 16:45:01 gastroente rologist referral 2023 024 ATHENACARLOS Morales MD, [address] [facility], [facility] [address], [place], [address], 4 16:57:55 otolaryngo logist referral 2023 024 [email or web address] Shaggy Whitt MD, [address] [place], [address], 16:45:00 Procedures None recorded. Surgeries None recorded. Imaging MAMMO, screening, digital, bilateral 2023 [facility] Scheduling, [address] [facility], [place], [address], 04:11:01 bone density 2023 [facility], [address], [place], [address], 04:11:01 electrocar diogram 2023 [facility], [facility], [address], [place], [address], 17:28:30 MAMMO, screening, digital, bilateral 2023 [facility] Scheduling, [address] [facility], [place], [address], 04:06:53 Medication Orders azithromyc in 250 mg tablet 2023 [facility] [address], [address], [address], 17:09:42 Patient TargetsNo targets recorded. Patient Instructions Encounter Date Encounter Id Patient Instructions Last Modified By Organization Details Last Modified Time 07/14/2023 [id number] mammogram: about this test mshenouda Not available 07/14/2023 16:27:46 inguinal hernia: care instructions mshenouda Not available 07/14/2023 16:27:47 controlling your asthma: care instructions mshenouda Not available 07/14/2023 16:27:46 learning about asthma mshenouda Not available 07/14/2023 16:27:46 spirometry testing* BENITA Not available 07/17/2023 08:49:16 hypothyroidism: care instructions [facility] Not available 07/14/2023 16:27:46 living will [facility] Not available 07/14/2023 16:27:38 11/24/2023 [id number] mammogram: about this test [facility] Not available 11/24/2023 11:59:57 inguinal hernia: care instructions [facility] Not available 11/24/2023 11:59:58 learning about asthma mshenouda Not available 11/24/2023 11:59:58 hypothyroidism: care instructions [facility] Not available 11/24/2023 11:59:58 Reason for Referral General Surgeon Referral for Left inguinal hernia Referring Physician: Willy Rivera, Internal Medicine, Encounter Date: 07/14/2023 Actuarial Science Professor Referral for Screening for malignant neoplasm of colon Referring Physician: Willy Rivera, Internal Medicine, Encounter Date: 07/14/2023 Guide Referral for Sc reening for malignant neoplasm of cervix Referring Physician: Willy Rivera, Internal Medicine, Encounter Date: 07/14/2023 Front Desk Receptionist Referral fo r Hearing loss of left ear Referring Physician: Willy Rivera, Internal Medicine, Encounter Date: 07/14/2023 Results Created Date Observation Date Name Description Value Unit Range Abnormal Flag Note LastModifiedBy Organization Detail LastModifiedTime 07/15/19 24 07/16/2023 HEPAT ITIS C AB W/REF L TO HCV RNA, QN, PCR hepatitis C antibody NON-RE ACTIVE non-re active normal HCV antib miguelito was non-r eacti ve. There is no labor atory evide nce of HCV infec tion. In most cases , no furth er actio n is requi red. Howev er, if recen t HCV expos ure is suspe cted, a test for HCV RNA (test code 45871 ) is sugge sted. For addit ional infor betsy n pleas e refer to http: //[facility] catio n.que stdia gnost ics.c om/fa q/FAQ 22v1 (This link is being provi ded for infor matio nal/ educa crispin l purpo ses only. ) Not Available [address], [address], 07/16/2023 04:01:07 07/17/19 24 07/17/2023 laina metry testi ng* Spirometry Not Available [facility], [facility] [address], [place], [address], 07/14/2023 16:01:35 01/20/2001/22/2024 TSH+F REE T4 TSH 0.96 mIU/L 0.40-4 .50 normal Not Available [address], [address], 01/22/2024 18:07:48 01/20/20 24 01/22/2024 TSH+F REE T4 T4, free 1.0 NG/dL 0.8-1. 8 normal Not Available [address], [address], 01/22/2024 18:07:48 01/20/20 24 01/22/2024 COMPR EHENS RAMON METAB OLIC PANEL glucose 88 mg/dL 65-99 normal Fasti ng refer ence inter nicolás Not Available [address], [address], 01/22/2024 18:07:49 01/20/20 24 01/22/2024 COMPR EHENS RAMON METAB OLIC PANEL urea nitrogen (BUN) 17 mg/dL 7-25 normal Not Available [address], [address], 01/22/2024 18:07:49 01/20/20 24 01/22/2024 COMPR EHENS RAMON METAB OLIC PANEL creatinine 0.92 mg/dL 0.50-1 .05 normal Not Available [address], [address], 01/22/2024 18:07:49 01/20/20 24 01/22/2024 COMPR EHENS RAMON METAB OLIC PANEL eGFR 69 mL/mi n/1.7 3m2 > or = 60 normal Not Available [address], [address], 01/22/2024 18:07:49 01/20/20 24 01/22/2024 COMPR EHENS RAMON METAB OLIC PANEL BUN/creatini ne ratio SEE NOTE: (calc ) 6-22 Not Repor josue: BUN and Creat inine are withi n refer ence range . Not Available [address], [address], 01/22/2024 18:07:49 01/20/20 24 01/22/2024 COMPR EHENS RAMON METAB OLIC PANEL sodium 140 mmol/ L 135-14 6 normal Not Available [address], [address], 01/22/2024 18:07:49 01/20/20 24 01/22/2024 COMPR EHENS RAMON METAB OLIC PANEL potassium 4.2 mmol/ L 3.5-5. 3 normal Not Available [address], [address], 01/22/2024 18:07:49 01/20/20 24 01/22/2024 COMPR EHENS RAMON METAB OLIC PANEL chloride 105 mmol/ L 98-110 normal Not Available [address], [address], 01/22/2024 18:07:49 01/20/20 24 01/22/2024 COMPR EHENS RAMON METAB OLIC PANEL carbon dioxide 25 mmol/ L 20-32 normal Not Available [address], [address], 01/22/2024 18:07:49 01/20/20 24 01/22/2024 COMPR EHENS RAMON METAB OLIC PANEL calcium 9.2 mg/dL 8.6-10 .4 normal Not Available [address], [address], 01/22/2024 18:07:49 01/20/20 24 01/22/2024 COMPR EHENS RAMON METAB OLIC PANEL protein, total 6.9 g/dL 6.1-8. 1 normal Not Available [address], [address], 01/22/2024 18:07:49 01/20/20 24 01/22/2024 COMPR EHENS RAMON METAB OLIC PANEL albumin 4.3 g/dL 3.6-5. 1 normal Not Available [address], [address], 01/22/2024 18:07:49 01/20/20 24 01/22/2024 COMPR EHENS RAMON METAB OLIC PANEL globulin 2.6 g/dL_ (calc ) 1.9-3. 7 normal Not Available [address], [address], 01/22/2024 18:07:49 01/20/20 24 01/22/2024 COMPR EHENS RAMON METAB OLIC PANEL albumin/glob ulin ratio 1.7 (calc ) 1.0-2. 5 normal Not Available [address], [address], 01/22/2024 18:07:49 01/20/20 24 01/22/2024 COMPR EHENS RAMON METAB OLIC PANEL bilirubin, total 1.0 mg/dL 0.2-1. 2 normal Not Available [address], [address], 01/22/2024 18:07:49 01/20/20 24 01/22/2024 COMPR EHENS RAMON METAB OLIC PANEL alkaline phosphatase 79 U/L 37-153 normal Not Available [address] [place], [address], 01/22/2024 18:07:49 01/20/20 24 01/22/2024 COMPR EHENS RAMON METAB OLIC PANEL AST 24 U/L 10-35 normal Not Available [place] [address] [place], [address], 01/22/2024 18:07:49 01/20/20 24 01/22/2024 COMPR EHENS RAMON METAB OLIC PANEL ALT 21 U/L 6-29 normal Not Available [address], [address], 01/22/2024 18:07:49 01/20/20 24 01/22/2024 CBC (INCL UDES DIFF/ PLT) white blood cell count 7.3 thous and/u L 3.8-10 .8 normal Not Available [address], [address], 01/22/2024 18:07:50 01/20/20 24 01/22/2024 CBC (INCL UDES DIFF/ PLT) red blood cell count 4.30 jefe on/uL 3.80-5 .10 normal Not Available [address], [address], 01/22/2024 18:07:50 01/20/20 24 01/22/2024 CBC (INCL UDES DIFF/ PLT) hemoglobin 13.6 g/dL 11.7-1 5.5 normal Not Available [address], [address], 01/22/2024 18:07:50 01/20/20 24 01/22/2024 CBC (INCL UDES DIFF/ PLT) hematocrit 41.8 % 35.0-4 5.0 normal Not Available [employer] [address], [address], 01/22/2024 18:07:50 01/20/20 24 01/22/2024 CBC (INCL UDES DIFF/ PLT) MCV 97.2 fL 80.0-1 00.0 normal Not Available [address], [address], 01/22/2024 18:07:50 01/20/20 24 01/22/2024 CBC (INCL UDES DIFF/ PLT) MCH 31.6 pg 27.0-3 3.0 normal Not Available [address], [address], 01/22/2024 18:07:50 01/20/20 24 01/22/2024 CBC (INCL UDES DIFF/ PLT) MCHC 32.5 g/dL 32.0-3 6.0 normal For adult s, a sligh t decre ase in the calcu lated MCHC value (in the range of 30 to 32 g/dL) is most likel y not clini maged signi mary t; shay er, it shoul d be inter prete d with cauti on in corre lat n with other red cell savannah eters and the patie nt's clini oscar condi tion. Not Available [address], [address], 01/22/2024 18:07:50 01/20/20 24 01/22/2024 CBC (INCL UDES DIFF/ PLT) RDW 12.7 % 11.0-1 5.0 normal Not Available [address], [address], 01/22/2024 18:07:50 01/20/20 24 01/22/2024 CBC (INCL UDES DIFF/ PLT) platelet count 276 thous and/u L 140-40 0 normal Not Available [address], [address], 01/22/2024 18:07:50 01/20/20 24 01/22/2024 CBC (INCL UDES DIFF/ PLT) MPV 9.8 fL 7.5-12 .5 normal Not Available [address], [address], 01/22/2024 18:07:50 01/20/20 24 01/22/2024 CBC (INCL UDES DIFF/ PLT) absolute neutrophils 5307 cells /uL 1500-7 800 normal Not Available [address], [address], 01/22/2024 18:07:50 01/20/20 24 01/22/2024 CBC (INCL UDES DIFF/ PLT) absolute lymphocytes 1248 cells /uL 850-39 00 normal Not Available [address], [address], 01/22/2024 18:07:50 01/20/20 24 01/22/2024 CBC (INCL UDES DIFF/ PLT) absolute monocytes 562 cells /uL 200-95 0 normal Not Available [address], [address], 01/22/2024 18:07:50 01/20/20 24 01/22/2024 CBC (INCL UDES DIFF/ PLT) absolute eosinophils 131 cells /uL 15-500 normal Not Available [address], [address], 01/22/2024 18:07:50 01/20/20 24 01/22/2024 CBC (INCL UDES DIFF/ PLT) absolute basophils 51 cells /uL 0-200 normal Not Available [facility] [address], [address], 01/22/2024 18:07:50 01/20/20 24 01/22/2024 CBC (INCL UDES DIFF/ PLT) neutrophils 72.7 % normal Not Available [address], [address], 01/22/2024 18:07:50 01/20/20 24 01/22/2024 CBC (INCL UDES DIFF/ PLT) lymphocytes 17.1 % normal Not Available [address], [address], 01/22/2024 18:07:50 01/20/20 24 01/22/2024 CBC (INCL UDES DIFF/ PLT) monocytes 7.7 % normal Not Available [address], [address], 01/22/2024 18:07:50 01/20/20 24 01/22/2024 CBC (INCL UDES DIFF/ PLT) eosinophils 1.8 % normal Not Available [address], [address], 01/22/2024 18:07:50 01/20/20 24 01/22/2024 CBC (INCL UDES DIFF/ PLT) basophils 0.7 % normal Not Available [address], [address], 01/22/2024 18:07:50 01/20/20 24 01/22/2024 C-SALIMA CTIVE PROTE IN C-reactive protein <3.0 mg/L <8.0 normal Not Available [address], [address], 01/22/2024 18:07:51 01/20/2001/22/2024 MIREYA MULTI PLEX W/REF KAHLIL 11 AB CASCA DE MIREYA screen, immunoassay NEGATI VE negati ve normal A negat ramon MIREYA Multi plex indic ates the absen ce of detec table antib odies to compo nent irwin lucy consi sting of amaury e stran ded DNA (dsDN A), chrom atin, ribon ucleo prote in (PATIENT APPOINTMENT COORDINATOR) , Farris /PATIENT APPOINTMENT COORDINATOR (Sm/R HAIR CUTTER), Farris (Sm), SS-A, SS-B, Vanessa-1, centr omere B, Scl-7 0 and ribos omal P. A negat ramon resul t shoul d be inter prete d in the waldo xt of the clini oscar and labor atory findi ngs and does not rule out autoi mmune disea se trish cteri zed by other autoa ntibo dy speci ficit ies such as rheum atoid arthr itis, autoi mmune hepat itis, prima ry bilia ry cirrh osis, autoi mmune thyro iditi s, Annette on's disea se, perni cious anemi a, autoi mmune neuro pathi es, vascu litis , lena c disea se, and bullo us disea se. For addit ional infor kalee kenny e refer to http: //[facility] cristiana Flores stDia gnost ics.c om/fa q/FAQ 177 (This link is being provi ded for infor betsy borges/ eductunde taylor purpo ses only. ) Not Available [facility] [address] [place], [address], 01/22/2024 18:07:52 01/20/20 24 01/22/2024 IMMUN OGLOB ULIN E immunoglobul in E 557 kU/L <or=11 4 high Not Available [facility] [address] [place], [address], 01/22/2024 18:07:53 07/14/19 24 07/07/2023 CT, coron bety calci um score No observ ation record ed. [facility] Not Available 2023 00:03:53 07/14/19 24 07/14/2023 elect pranay richardson am No observ ation record ed. [place] [facility], [facility] [address], [place], [address], 07/15/2023 11:54:02 07/14/19 24 07/14/2023 US, echoming nicholsono gram No observ ation record ed. [facility], [facility] [address], [place], [address], 07/14/2023 19:26:02 07/14/19 24 07/14/2023 elect pranay richardson am No observ ation record ed. [place] [facility], [facility] [address], [place], [address], 07/15/2023 11:54:03 07/17/19 24 07/17/2023 laina metry testi ng* No observ ation record ed. [facility] [address], [place], [address], 11/24/2023 11:48:43 09/19/19 24 09/09/2023 US, mic nicholsono gram No observ ation record ed. BENITA [facility] [address], [place], [address], 01/25/2024 12:11:34 12/03/19 24 07/22/2022 bone densi ty No observ ation record ed. [facility] [address] [place], [address], 12/03/2023 22:15:43 Result Notes None recorded. Problems Name Problem SNOMED Code Status Onset Date Resolution Date Notes Provider Name and Address Organization Details Recorded Time Osteopenia 693365610 Active 2023 Willy Rivera MD [address], [place], [address], [facility] 22:14:29 Raynaud's phenomenon 075538322 Active 2023 Willy Rivera MD [address], [place], [address], [facility] 17:15:18 Hypothyroidism 32734355 Active 2023 Willy Rivera MD [address], [place], [address], [facility] 16:01:29 Asthma 604317938 Active 2023 Willy Rivera MD [address], [place], [address], [facility] 4 16:01:31 Chronic low back pain 298255681 Active 2023 Willy Rivera MD [address], [place], [address], [facility] 4 16:06:41 Left inguinal hernia 366328705 Active 2023 Willy Rivera MD [address], [place], [address], [facility] 4 16:06:44 Menopause Active 2023 Willy Rivera MD [address], [place], [address], [facility] 4 16:06:46 Family history of coronary arterioscleros is 400073927 Active 2023 Willy Rivera MD [address], [place], [address], [facility] 4 16:10:00 Hearing loss of left ear 934843376 Active 2023 Willy Rivera MD [address], [place], [address], [facility] 4 16:15:41 Body mass index 20-24 - normal 210192200 Active 2023 Willy Rivera MD [address], [place], [address], [facility] 4 16:17:40 Electrocardiog lorenzo abnormal 031519404 Active 2023 Willy Rivera MD [address], [place], [address], [facility] 4 16:53:27 Problem Notes None recorded. Procedures Surgical History Date Name Laterality Status Provider Name and Address Organization Details Recorded Time Cholecystectomy completed Willy Rivera MD [address], [place], [address], [place] [facility] 07/14/2023 16:07:07 surgical procedure on lumbar spine completed Willy Rivera MD [address], [place], [address], [place] [facility] 07/14/2023 16:07:27 surgical procedure on cervical spine completed Willy Rivera MD [address], [place], [address], [facility] 07/14/2023 16:07:41 Carpal tunnel surgery completed Willy Rivera MD [address], [place], [address], [facility] 07/14/2023 16:07:59 Total Hysterectomy completed Willy Rivera MD [address], [place], [address], [facility] 07/14/2023 16:08:24 Imaging Results Imaging Date Name Status LastModified by Organization Details LastModified Time 07/07/2023 CT, coronary calcium score completed [facility] Information not available 07/16/2023 00:03:53 07/14/2023 electrocardiogram completed [employer] [facility], [facility] [address], [place], [address], 07/15/2023 11:54:02 07/14/2023 US, echocardiogram completed [facility] [employer] [facility], [facility] [address], [place], [address], 07/14/2023 19:26:02 07/14/2023 electrocardiogram completed [facility], [facility] [address], [place], [address], 07/15/2023 11:54:03 07/17/2023 spirometry testing* completed [facility], [facility] [address], [place], [address], 11/24/2023 11:48:43 09/09/2023 US, echocardiogram completed [facility], [facility] [address], [place], [address], 01/25/2024 12:11:34 07/22/2022 bone density completed [facility] [address] [place], [address], 12/03/2023 22:15:43 Procedure Notes None recorded. Medical Equipment None Reported. Allergies Allergen ID Allergen Name Allergen Category Reaction Reaction Severity Criticality Documentation Date Start Date Code Code System Note Provider Name and Address Organization Details Recorded Time codeine medicatio n palpitati ons Not available low 07/14/2023 2670 RxNorm Willy Rivera MD [address], [place], [address], [facility] 15:54:19 Medications Name Sig Start Date Stop Date Status Note LastModified by Organization Details LastModified Time prednisone 10 mg tablet TAKE 4 TABLETS BY MOUTH ONCE DAILY FOR 2 DAYS 3 ONCE DAILY FOR 2 DAYS 2 ONCE DAILY FOR 2 DAYS 1 ONCE DAILY FOR 2 DAYS 11/23 completed Not Available Not Available Not Available azithromyci n 250 mg tablet TAKE 2 TABLETS (500 MG) BY ORAL ROUTE ONCE DAILY FOR 1 DAY THEN 1 TABLET (250 MG) BY ORAL ROUTE ONCE DAILY FOR 4 DAYS 01/16 completed Not Available Not Available Not Available hydrocodone 5 mg-acetamin ophen 325 mg tablet 11/23 completed Not Available Not Available Not Available prednisone 20 mg tablet TAKE 2 TABLETS BY MOUTH ONCE DAILY FOR 5 DAYS 11/23 completed Not Available Not Available Not Available liothyronin e 5 mcg tablet 2 tab PO QAM active Not Available Not Available No t Available levothyroxi ne 25 mcg tablet 1 tab PO QAM active Not Available Not Available No t Available prednisolon e acetate 1 % eye drops,suspe nsion INSTILL 1 DROP THREE TIMES DAILY INTO SURGICAL EYE STARTING AFTER SURGERY AND CONTINUIN G FOR 3 WEEKS 11/23 completed Not Available Not Available Not Available Advair Diskus 250 mcg-50 mcg/dose powder for inhalation INHALE 1 DOSE BY MOUTH ONCE DAILY RINSE MOUTH AFTER USE DO NOT SWALLOW 11/23 completed Not Available Not Available Not Available montelukast 10 mg tablet Take 1 tablet every day by oral route. 2023 active Not Available Not Available Not Avai lable azelastine 137 mcg (0.1 %) nasal spray active Not Available Not Available Not Available fluticasone 100 mcg-salmete rol 50 mcg/dose blistr powdr for inhalation 11/23 completed Not Available Not Available Not Available albuterol sulfate HFA 90 mcg/actuati on aerosol inhaler INHALE 2 PUFFS BY MOUTH EVERY 6 HOURS NEEDED active Not Available Not Available No t Available cefdinir 300 mg capsule 01/16 completed Not Available Not Available Not Available fluticasone propionate 50 mcg/actuati on nasal spray,suspe nsion active Not Available Not Available Not Available finasteride 5 mg tablet 1 tab PO QOD 11/23 completed Not Available Not Available Not Available progesteron e micronized 100 mg capsule TAKE 1 CAPSULE BY MOUTH IN THE EVENING 6 DAYS PER WEEK 11/23 completed Not Available Not Available Not Available amoxicillin 875 mg-potassiu m clavulanate 125 mg tablet TAKE 1 TABLET BY MOUTH EVERY 12 HOURS FOR 10 DAYS 11/23 completed Not Available Not Available Not Available nitrofurant oin monohydrate /macrocryst als 100 mg capsule 11/23 completed Not Available Not Available Not Available Advair HFA 230 mcg-21 mcg/actuati on aerosol inhaler INHALE 2 PUFFS BY MOUTH TWICE DAILY RINSE MOUTH WITH WATER AFTER USE DO NOT SWALLOW 11/23 completed Not Available Not Available Not Available sodium,pota ssium,mag sulfates 17.5 gram-3.13 gram-1.6 gram oral soln 11/23 completed Not Available Not Available Not Available Breo Ellipta 100 mcg-25 mcg/dose powder for inhalation INHALE 1 PUFF ONCE DAILY RINSE MOUTH WITH WATER AFTER USE DO NOT SWALLOW active Not Available Not Available No t Available Xhance 93 mcg/actuati on breath activated aerosol 11/23 completed Not Available Not Available Not Available Vitals Date Recorded Heart rate Respiratory rate Body temperature Body weight Body mass index (BMI) Body height Systolic blood pressure Diastolic blood pressure Provider Name and Address Organization Details Last Updated DateTime 4 68 /min 16 /min 98.7 [degF] 74111.6 8 g 20.1 kg/m2 165.1 cm 138 mm[Hg] 63 mm[Hg] Patricia Traylor [facility] 15:39:43 Date Recorded Body height Provider Name an d Address Organization Details Last Updated DateTime 07/16/2023 165.1 cm Patricia Traylor [facility] 07/16/2023 16:42:09 Date Recorded Body weight Body temperature Respiratory rate Heart rate Systolic blood pressure Diastolic blood pressure Provider Name and Address Organization Details Last Updated DateTime 4 24393.9 g 97.9 [degF] 16 /min 62 /min 124 mm[Hg] 70 mm[Hg] Bee Cordoba [facility] 11:37:45 Date Recorded Body mass index (BMI) Body height Provider Name and Address Organization Details Last Updated DateTime 11/24/2023 19.6 kg/m2 165.1 cm Willy Rivera MD [address], [place], [address], [facility] 11/24/2023 11:45:03 Social History None recorded. Functional Status None recorded. Mental Status None recorded. Family History Relationship Description Onset Age of this Age Resolved Age Notes LastModified by Organization Details LastModified Time Mother Malignant tumor of breast 78 [email or web address] Not available 2023 16:05:43 Father Heart disease 78 CHF [email or web address] Not available 2023 16:06:35 Sister Cerebrovascu lar accident [email or web address] Not available 16:09:32 Sister Coronary arterioscler osis 60 [email or web address] Not available 2023 16:09:49 Sister Tongue carcinoma [email or web address] Not available 2023 16:11:12 Medical History No medical history recorded. Gynecological HistoryNo gynecological history recorded. Obstetrics History GPAL:G 0 P 0 0 0 0 Past Encounters Encounter ID Performer Location Encounter Start Date Encounter Closed Date Diagnosis/Indication Diagnosis SNOMED-CT Code Diagnosis ICD10 Code Diagnosis Note [id number] Willy Rivera MD [employer], [employer] [address] [place] [address] 07/14/2023 15:23:13 07/14/2023 16:45:00 Adult health examination 323722735 Z00.00 per pt had ophth eval 09/2022 Asthma 105459919 J45.90 9 Hypothyroidism 20285184 E03.9 Menopause 500192299 Z78. 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 Screening mammography 24 218002 Z12.31 Screening for malignant neoplasm of cervix 662191929 Z12.4 Screening for malignant neoplasm of colon 489926551 Z12.11 Active or passive immunization 149199213 Z23 Family his tory of coronary arteriosclerosis 336462102 Z82.49 sister Viral screening 14755066 4 Z11.59 Hearing lo ss of left ear 453030363 H91.92 Body mass index 20-24 - normal 558933899 Z68.20 education [id number] Willy Rivera MD [facility], [facility] [address] [place] [address] 07/16/2023 16:03:15 07/17/2023 11:56:34 [id number] Willy Rivera MD [place] [employer] [facility], [facility] [address] [place] [address] 11/24/2023 11:27:32 11/24/2023 12:09:42 Asthma 338188746 J45.909 last PFT 07/14/23 Body mass index 20-24 - normal 071257828 Z68.20 education Family his tory of coronary arteriosclerosis 267316309 Z82.49 sister , EKG 07/14/23 Hypothyroidism 78273737 E03.9 Left inguinal hernia 236 467114 K40.90 S/P surgery 08/26/23 Menopause 173260786 Z78. 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 Screening procedure 2012 5006 Z13.9 Congestion of nasal sinus 14080154 R09.81 Active or passive immunization 817960955 Z23 decline shots Health Concerns Section Related Observation LastModified by Organization Detai ls LastModified Time None Recorded Concern Status LastModified by Organization Details LastModified Time None Recorded Advance Directives Directive None Recorded Payers Encounter Date Sequence Insurance Name Policy Number Policy Escobar Covered Member ID Escobar Member ID Guarantor Name 07/14/2023 2 [employer] (POS) [id number] Chastity Rock [id number] Chastity Rock 07/14/2023 1 [place] Chastity Rock [id number] Chastity Rock 07/16/2023 2 [employer] (POS) [id number] Chastity Rock [id number] Chastity Rock 07/16/2023 1 [place] Chastity Rock [id number] Chastity Rock 11/24/2023 2 [employer] (POS) [id number] Chastity Rock [id number] Chastity Rock 11/24/2023 1 [place] Chastity Rock [id number] 24 Chastity Rock Notes Date Note Type Note Provider Name and Address Organization Details Recorded Time 07/14/2023 text/html Hypertension F/UReported bypatient.Medications: taking medications as directed; no side effects from medication Lifestyle:regular exercise; limiting/avoiding salt; compliant with low salt diet Associated Symptoms:no dizziness; no lightheadedness; no chest pain; no shortness of breath; no palpitations; no edema; no calf pain with exertion; no headacheMedicare Annual Wellness VisitReported bypatient.Diet and Nutrition:healthy diet Fracture Risk:no history of fractures; no recent explained fracture; no sudden unexplained fractures; no previous musculoskeletal injuries Physical Activity:recent increase in physical activity; good physical condition; discussed exercise habits Depression Risk:never feels sad, empty, or tearful; no loss of interest in activities; no significant changes in weight; no sleep disturbances or insomnia; no agitation; no loss of energy; no feelings of worthlessness or guilt; no thoughts of suicide; no history of depression; no history of mood disorders Orientation:no disorientation to time; no disorientation to date; no disorientation to place Concentration and Memory:no decreased concentrating ability; no memory lapses or loss; does not forget words Speech/Motor difficulties:no speech difficulties; no difficulty expressing formulated concepts; no difficulty with fine manipulative tasks; no difficulty writing/copying; no slowed reaction time; does not knock things over when trying to pick them up Hearing:no loss of hearing; wears hearing aids Vision:no vision problems Activities of Daily Living:able to bathe with limited or no assistance; able to contol urination and bowels; able to dress with limited or no assistance; able to feed self with limited or no assistance; able to get out of chair or bed with limited or no assistance; able to groom with limited or no assistance; able to toilet with limited or no assistance Instrumental Activities of Daily Living:able to do house work with limited or no assistance; able to grocery shop with limited or no assistance; able to manage medications with limited or no assistance; able to manage money with limited or no assistance; able to prepare meals with limited or no assistance; able to use the phone with limited or no assistance Falls Risk Assessment:no frequent falls while walking; no fall in the past year; no dizziness/vertigo Home Safety:use of seatbelts; no vision or hearing loss while driving Willy Rivera MD [address], [place], [address], [facility] 01/17/2024 17:22:29 11/24/2023 text/html Hypertension F/UReported bypatient.Medications: taking medications as directed; no side effects from medication Lifestyle:regular exercise; limiting/avoiding salt; compliant with low salt diet Associated Symptoms:no dizziness; no lightheadedness; no chest pain; no shortness of breath; no palpitations; no edema; no calf pain with exertion; no headache Willy Rivera MD [address], [place], [address], [facility] 11/24/2023 12:00:57 OBGyn Episode No OBEpisode recorded.
--- OUTSIDE RECORDS SUMMARY | 2024-05-01 11:39 | XMS_ITS | Clinical Summary ---
Author Organization [facility] Address [address] [place] [address] Care Team Providers Care Special Machine Operator Name Role Phone Unavailable Primary Care Provider Unavailabl e Source Comments [facility],non-owned Affiliates and Associated Physician Practices is amultiple site organization consisting of ambulatory clinics and hospital sitesin [place], [place], [place] and [place]. This disclosure is being madepursuant to the Care Everywhere program and may not contain all information available regarding this patient. Last updated 17.[facility] Allergies Active Allergy Reactions Criticality Noted Date Comments Moxifloxacin 05/29/2014 Chlorzoxazone 05/29/2014 Codeine 05/24/2009 Levofloxacin 05/05/2011 Morphine 05/24/2009 Naproxen 05/24/2009 Vioxx 05/24/2009 Medications * Be aware that medications may not be up to date on this document. Alwaysverify current medications with the patient. Medication Sig Dispensed Refills Start Date End Date Status fluticasone-salmeterol (ADVAIR DISKUS) 100-50 MCG/DOSE inhaler Inhale 1 Puff by mouth 2 times daily. Active fluticasone propionate (FLONASE) 50 MCG/ACT nasal spray [place] 1 [place] into each nostril 2 times daily. Active VIVELLE TD Apply to skin. As directed Active Cetirizine-Pseudoephed rine (ALLERGY D-12 PO) Take by mouth. Active [place]-3 Fatty Acids (FISH OIL) 1200 MG CAPS Take by mouth. Active Cholecalciferol (VITAMIN D PO) Take by mouth. Active IRON PO Take by mouth. Active Calcium-Vitamin D-Vitamin K (CALCIUM SOFT CHEWS) 500-100-40 MG-UNT-MCG CHEW Take by mouth. Activ e MAGNESIUM CITRATE PO Take by mouth. Active B Complex-C (SUPER B COMPLEX PO) Take by mouth. Active VITAMIN E PO Take by mouth. Active Melatonin 1 MG CAPS Take by mouth. A ctive vitamin C (ASCORBIC ACID) 1000 MG TABS tablet Take 1,000 mg by mouth once daily. Active Nutritional Supplements (DHEA) 15-50 MG CAPS Take by mouth. Active IODINE, KELP, PO Take by mouth. Acti ve Probiotic Product (SOLUBLE FIBER/PROBIOTICS PO) Take by mouth. Active liothyronine 5 MCG capsule Take 5 mcg by mouth once daily. Active levothyroxine (SYNTHROID) 100 MCG tablet Take 100 mcg by mouth daily before breakfast. Active Active Problems Problem Noted Date Diagnosed Date Neck pain 05/05/2011 Arm pain 05/24/2009 Family History Medical History Relation Name Comments Heart Failure Father Cancer Maternal Grandfather Cancer Maternal Grandmother Cancer Mother Arthritis - Rheumatoid Sister 6 Arthr itis Migraine Sister 7 Cancer Sister 8 Relation Name Status Comments Brother 1 Alive Brother 2 Alive Brother 3 Alive Father Maternal Grandfather Maternal Grandmother Mother Sister 1 Alive Sister 2 Alive Sister 3 Alive Sister 4 Alive Sister 5 Alive Sister 6 Sister 7 Sister 8 Social History Tobacco Use Types Packs/Day Years Used Date Smoking Tobacco: Never Alcohol Use Standard Drinks/Week Comments Yes 0 (1 standard drink = 0.6 oz pur e alcohol) Sex and Gender Information Value Date Recorded Sex Assigned at Not on file Gender Identity Not on file Sexual Orientation Not on file Last Filed Vital Signs Vital Sign Reading Time Taken Comments Blood Pressure - - Pulse - - Temperature - - Respiratory Rate - - Oxygen Saturation - - Inhaled Oxygen Concentration - - Weight 58.1 kg (128 lb) 07/20/2014 8:16 AM CDT Height 170.2 cm (5' 7 ) 07/20/2014 8:16 AM CDT Body Mass Index 20.05 07/20/2014 8:16 AM CDT Plan of Treatment Health Maintenance Due Date Last Done Comments BONE DENSITY TESTING 1955 COLOGUARD (AGES 45-75) - COL ON CA SCREENING 1955 COLON MONITORING 1957 COLONOSCOPY - COLON CA SCREENING 1957 CT COLONOGRAPHY - COLON CA SCREENING 1955 Colorectal Cancer Screening 1955 FIT - COLON CA SCREENING 1957 FLEX SIG - COLON CA SCREENING 1957 LIPID TESTING 1955 MAMMOGRAM 1955 MEDICARE AWV 12 MONTHS 1955 HEPATITIS C SCREENING 06/02/1975 DTAP/TDAP/TD VACCINES (1 - Tdap) 1976 PNEUMOCOCCAL VACCINE 50+ (1 of 1 - PCV) 06/07/2007 ZOSTER VACCINE (1 of 2) 06/07/2007 COVID-19 VACCINE (1 - 2023-2 5 season) 2023 INFLUENZA VACCINE (#1) 2023 DEPRESSION SCREENING 03/23/2024 Respiratory Syncytial Virus (RSV) Vaccine Pt: or over 60 yrs (1 - 1-dose 75+ series) 2032 HEPATITIS B VACCINE Aged Out No longe r eligible based on patient's age to complete this topic HIB VACCINE Aged Out No longer eligi ble based on patient's age to complete this topic HPV VACCINE Aged Out No longer eligi ble based on patient's age to complete this topic MENINGOCOCCAL (Group B) VACCINE Aged Out No longer eligible based on patient's age to complete this topic MENINGOCOCCAL VACCINE Aged Out No nishi heena eligible based on patient's age to complete this topic Chastity Rock Personal/Family Self [id number] [place] [address]
--- OUTSIDE RECORDS SUMMARY | 2024-05-01 11:39 | XMS_ITS | Encounter Summary ---
Author Organization [facility] Address [address] [place] [address] Care Team Providers Care Magazine Publisher Name Role Phone Unavailable Primary Care Provider Unavailabl e Encounter Details Date Type Department Care Team (Late st Contact Info) Description 05/10/2019 Lab Requisition [facility] [address] [place] [address] Jose Salvador MD [address] [place] [address] Social History Tobacco Use Types Packs/Day [...] Priority Date/Time Associated Diagnosis Comments DERMATOPATHOLOGY Routine 05/10/2019 12:0 0 AM PATTERN PUNCHER documented in this encounter Results * DERMATOPATHOLOGY (05/10/2019 12:00 AM PATTERN PUNCHER) Case Report Dermatopathology Report Case: [id number] Authorizing Provider: Jose Salvador MD Collected: 05/10/2019 12:00 AM Ordering Location: [facility] Received: 05/10/2019 02:55 PM Pathologist: Hope Alejo MD Specimen: Skin, left deltoid 0 11:30 AM [facility] Final Diagnosis Specimen A. 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 23G592. 0 11:30 AM [facility] Gross Description Specimen A: Received is one formalin filled container labeled with the patient's name and designated left deltoid. The specimen consists of a shave biopsy measuring [id number]. Jar 0. 0 11:30 AM [facility] Microscopic Description Specimen A. SKIN, left deltoid: The epidermis is acanthotic and shows full thickness disorderly maturation of keratinocytes, mitoses at different levels, and dyskeratotic cells. There is overlying parakeratosis and hyperkeratosis. 0 11:30 AM [facility] Disclaimer An external and internal positive and negative controls are appropriate for the histochemical, immunohistochemical and immunofluorescence stain(s) in this case (if any), except where stated explicitly. The performance characteristics of the stain(s) cited in this report were developed and its performance characteristic determined by the Dermatopathology Laboratory at [facility], directed by Dr. Joel Alejo. These tests need not be, and therefore are not, approved by the [place] Food and Drug Administration. The tests are used for clinical purposes. Billing Codes Specimen Charges Stain Charges 15628 1 0 11:30 AM [facility] Embedded Images 0 11:30 AM [facility] Pathology/Cytolog y TISSUE SPECIMEN FROM SKIN / Unknown 05/10/2019 05/10/2019 2:55 PM PATTERN PUNCHER Jose Salvador MD LAB - PATHOLOGY/CYTO LOGY ORDERABLES DERMATOPATHOLOGY LABORATORY [facility] - Department of Dermatology [address] [place] [address], 5th Floor Lab [address] [phone] documented in this encounter Visit Diagnoses Not on filedocumented in this encounter
--- OUTSIDE RECORDS SUMMARY | 2024-05-01 11:39 | XMS_ITS | Referral Summary ---
Author Organization [facility] Address [address] [place] [address] Care Team Providers Care Entertainment Reporter Name Role Phone Unavailable Primary Care Provider Unavailabl e Source Comments [facility],non-owned Affiliates and Associated Physician Practices is amultiple site organization consisting of ambulatory clinics and hospital sitesin [place], [place], [place] and [place]. This disclosure is being madepursuant to the Care Everywhere program and may not contain all information available regarding this patient. Last updated 17.[facility] Allergies Active Allergy Reactions Criticality Noted Date [...] fluticasone propionate (FLONASE) 50 MCG/ACT nasal spray [place] 1 [place] into each nostril 2 times daily. Active VIVELLE TD Apply to skin. As directed Active Cetirizine-Pseudoephed rine (ALLERGY D-12 PO) Take by mouth. Active [place]-3 Fatty Acids (FISH OIL) 1200 MG CAPS [...] Date Neck pain 05/05/2011 Arm pain 05/24/2009 Social History Tobacco Use Types Packs/Day Years [...] 07/20/2014 8:16 AM CDT Plan of Treatment Not on file Chastity Rock Personal/Family Self 1955 [id number] [address] Chastity Rock Personal/Family Self 1955 [id number] [place] [address]
--- OUTSIDE RECORDS SUMMARY | 2024-05-01 11:39 | XMS_ITS | Data Portability ---
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 Plan of Treatment Reminders Order Date Submit Date Provider Last Modified By Organization Details Last Modified Time Details Appointments None recorded. Lab pap, LB 2022 023 [facility], [address] [place], [address], 3 18:16:09 HPV E6+E7 mRNA, qualitative PCR, cervix 2022 023 [facility], [address] [place], [address], 3 13:26:50 pap, LB 2023 024 [facility], [address] [place], [address], 4 12:27:11 HPV E6+E7 mRNA, qualitative PCR, cervix 2023 024 [employer] [facility], [address] [place], [address], 4 13:56:22 Referral None recorded. Procedures None recorded. Surgeries None recorded. Imaging MAMMO, screening, digital, bilateral 2023 024 [email or web address] Not available 4 11:14:54 bone density 2023 024 [email or web address] Not available 11:14:54 Medication Orders None recorded. Patient TargetsNo targets recorded. Patient Instructions Encounter Date Encounter Id Patient Instructions Last Modified By Organization Details Last Modified Time 03/29/2021 [id number] eating healthy foods: care instructions Not available 03/29/2021 12:27:24 weight managemen t education Not available 03/29/2021 12:27:24 10/01/2022 [id number] abuse/domestic violence education Not available 10/01/2022 11:33:31 eating healthy foods: care instructions [email or web address] Not available 10/01/2022 11:33:31 weight managemen t education Not available 10/01/2022 11:33:31 10/26/2023 [id number] body mass index: care instructions [email or web address] Not available 10/26/2023 16:59:39 mammogram: about this test Not available 10/26/2023 16:59:39 Reason for Referral None Reported. Results Created Date Observation Date Name Description Value Unit Range Abnormal Flag Note LastModifiedBy Organization Detail LastModifiedTime 10/02/1910/03/2022 THINP REP TIS PAP clinical information: normal None given Not Available [facility] [address], [address], 10/03/2022 18:16:09 10/02/1910/03/2022 THINP REP TIS PAP LMP: normal None given Not Available [employer] [address], [address], 10/03/2022 18:16:09 10/02/1910/03/2022 THINP REP TIS PAP prev. Pap: normal None given Not Available [facility] [address], [address], 10/03/2022 18:16:09 10/02/19 23 10/03/2022 THINP REP TIS PAP prev. BX: normal None given Not Available [facility] [address] [place], [address], 10/03/2022 18:16:09 10/02/19 23 10/03/2022 THINP REP TIS PAP source: normal Cervi x Not Available [place] [address] [address] [place], [address], 10/03/2022 18:16:09 10/02/19 23 10/03/2022 THINP REP TIS PAP statement of adequacy: normal Satis facto ry for evalu ation . Endoc ervic al/tr ansfo rmati on zone compo nent prese nt. Not Available [address] [place], [address], 10/03/2022 18:16:09 10/02/19 23 10/03/2022 THINP REP TIS PAP interpretati on/result: normal Cytol ogy Resul ts: Negat anshu for intra epith elial lesio n or kim james . Not Available [address] [address] [place], [address], 10/03/2022 18:16:09 10/02/19 23 10/03/2022 THINP REP TIS PAP comment: normal This Pap test has been evalu ated with compu ter julio josue techn ology . Not Available [address] [address] [place], [address], 10/03/2022 18:16:09 10/02/19 23 10/03/2022 THINP REP TIS PAP cytotechnolo gist: normal MEF, CT( CP) CT scree amauri locat ion: [place] [address] [address] [place] [address] Not Available [address] [address] [place], [address], 10/03/2022 18:16:09 10/02/19 23 10/03/2022 THINP REP TIS PAP comment EXPLA NATOR Y NOTE: The Pap is a scree amauri test for cervi oscar cance r. It is not a diagn ostic test and is subje ct to false negat anshu and false posit anshu resul ts. It is most relia ble when a satis facto ry sampl e, regul padma obtai savana, is submi tted with relev ant clini oscar findi ngs and histo ry, and when the Pap resul t is evalu ated along with histo joya and curre nt clini oscar infor matio n. Not Available [employer] [facility] [address] [place], [address], 10/03/2022 18:16:09 10/02/19 23 10/07/2022 HPV GENOT YPE HPV 16 Negati ve negati ve normal Not Available [address], [address], 10/07/2022 13:26:50 10/02/19 23 10/07/2022 HPV GENOT YPE HPV 18/45 Negati ve negati ve normal Assay can diffe renti ate HPV 16 from HPV 18 and/o r HPV 45. But canno t diffe renti ate betwe en 18 and 45. Not Available [address], [address], 10/07/2022 13:26:50 10/02/19 23 10/02/2022 HPV HIGH RISK HPV high risk POSITI VE negati ve abnormal The HPV High Risk assay is inten ded for use as co-te sting with cytol ogy and not as a subst itute for regul ar cervi oscar cytol ogy scree amauri. This assay is not inten ded for use as a scree amauri devic e for women under age 30 with debbie l cervi oscar cytol ogy. Not Available [place], [address], 10/07/2022 13:26:51 10/26/19 24 10/28/2023 HPV HIGH RISK HPV high risk Negati ve negati ve normal The HPV High Risk assay is inten ded for use as co-te sting with cytol ogy and not as a subst itute for regul ar cervi oscar cytol ogy scree amauri. This assay is not inten ded for use as a scree amauri devic e for women under age 30 with debbie l cervi oscar cytol ogy. Not Available [facility] [address] [place], [address], 10/28/2023 13:56:22 10/26/19 24 10/29/2023 THINP REP TIS PAP clinical information: normal None given Not Available [address] [address] [place], [address], 10/29/2023 12:27:11 10/26/19 24 10/29/2023 THINP REP TIS PAP LMP: normal NONE GIVEN Not Available [address] [place], [address], 10/29/2023 12:27:11 10/26/19 24 10/29/2023 THINP REP TIS PAP prev. Pap: normal NONE GIVEN Not Available [employer] [facility] [address] [address] [place], [address], 10/29/2023 12:27:11 10/26/19 24 10/29/2023 THINP REP TIS PAP prev. BX: normal NONE GIVEN Not Available [employer] [address] [address] [place], [address], 10/29/2023 12:27:11 10/26/19 24 10/29/2023 THINP REP TIS PAP source: normal Cervi x Not Available [facility] [address] [address] [place], [address], 10/29/2023 12:27:11 10/26/19 24 10/29/2023 THINP REP TIS PAP statement of adequacy: normal Satis facto ry for evalu ation . Endoc ervic al/tr ansfo rmati on zone compo nent prese nt. Not Available [facility] [address] [address] [place], [address], 10/29/2023 12:27:11 10/26/19 24 10/29/2023 THINP REP TIS PAP interpretati on/result: normal Cytol ogy Resul ts: Negat anshu for intra epith elial lesio n or maledda dixoncy . Not Available [address] [address] [place], [address], 10/29/2023 12:27:11 10/26/19 24 10/29/2023 THINP REP TIS PAP comment: normal This case could not be evalu ated with compu ter julio josue techn ology . The slide was kelechi johansen scree savana accor ding to tiburcio keen . Not Available [address] [address] [address] , [place], [address], 10/29/2023 12:27:11 10/26/19 24 10/29/2023 THINP REP TIS PAP cytotechnolo gist: normal BES, CT( CP) CT scree amauri locat ion: [place] [address] [place] [address] Not Available [address] [address] [place], [address], 10/29/2023 12:27:11 10/26/19 24 10/29/2023 THINP REP TIS PAP comment EXPLA NATOR Y NOTE: The Pap is a scree amauri test for cervi oscar cance r. It is not a diagn ostic test and is subje ct to false negat anshu and false posit anshu resul ts. It is most relia ble when a satis facto ry sampl e, regul padma obtai savana, is submi tted with relev ant clini oscar findi ngs and histo ry, and when the Pap resul t is evalu ated along with histo joya and curre nt clini oscar infor matio n. Not Available [address] [address] [place], [address], 10/29/2023 12:27:11 08/15/1908/14/2022 MAMMO , scree amauri, tomos ynthe sis, bilat eral [facility] [place] [address] . [facility] Christina susanna [place], [place] [address] This is a summar y report . The comple te report is availa ble in the patien t's medica l record . If you cannot access the medica l record , please contac t the sendin g organjuancarlos salgado for a detail ed fax or copy. Examin ation: Digita l screen ing mammog lorenzo with CAD. Access ion: [id number] Clinic al histor y: Asympt omatic patien t presen ts for routin e screen ing. Compar ulysses: 021, 04/28/19 19, 11/27/19 17, 016. Techni que: Bilate ral digita l mammog nita. The exam was interp reted with the use of a [employer] er-aid ed detect ion (CAD) system . Additi onal 3-D tomosy nthesi s images were acquir ed. Tissue densit y: The breast tissue is hetero geneou sly dense. Findin gs: The breast tissue is hetero geneou sly dense. The dense tissue may obscur e some lesion s mammog raphic ally. No suspic ious mass, microc alcifi cation or area of aishwarya ectura l distor tion can be identi fied. From a mammog raphic standp oint, routin e follow up in one year would seem adequa te. IMPRES ANDREAS: No suspic ious change since the previo us exams. Recomm endati on: 1: Routin e Screen ing Bilate ral in 1 Year Assess ment: ACR BI-RAD S 1 - NEGATI VE Ordere d By: LUIS FERNANDO GRIFFITH Electr onical ly Signed By: Lorenzo pop MD on 023 3:55 PM Interp reted By: Lorenzo pop MD, 023 3:[address], [place], [address], 08/31/2022 17:42:46 12/25/19 24 12/25/2023 MAMMO , scree amauri, tomos ynthe sis, bilat eral This is a summar y report . The comple te report is availa ble in the patien t's medica l record . If you cannot access the medica l record , please contac t the sendin g organi zajulius for a detail ed fax or copy. [facility] [address] [place] [address] [phone] EXAMIN ATION: MG SCREEN ING W TYESHA TREVON DIGI ACCESS ION: [id number] INDICA TIONS: Screen ing TECHNI QUE: Digita l full field CC and MLO screen ing mammog trista bilate rally to includ e 3-D Tomosy nthesi s techni que. This study was read with the assist ance of a [employer] er-aid ed detect ion system . HISTOR Y: No report ed breast compla int. Family histor y of breast cancer in mother at age 70. No docume nted person al histor y of breast cancer or prior breast biopsy . COMPAR ULYSSES: Multip le prior examin ations availa ble for compar ulysses dating back to 2006, the most recent of 023, 021, and 04/28/19 19. TISSUE DENSIT Y: The breast s are hetero geneou sly dense, which may obscur e small masses . FINDIN GS: Few typica lly benign round and vascul ar calcif icatio ns. No suspic ious microc alcifi cation or mass. No develo ping asymme try or aishwarya ectura l distor tion. No axilla ry adenop athy. IMPRES ANDREAS: No signif icant interv al change . No mammog raphic eviden ce of malign pola. RECOMM ENDATI ON: Routin e Screen ingBil ateral OVERAL L IMAGIN G ASSESS MENT: ACR BI-RAD S 2 - BENIGN FINDIN G(S). Ordere d By: LUIS FERNANDO GRIFFITH Electr onical ly Signed By: Alyx Nation on 5:47 PM Interp reted By: Alyx Nation, 5:40 PM luanne [facility] [address] [facility], [place], [address], 01/02/2024 18:39:30 Result Notes None recorded. Problems Name Problem SNOMED Code Status Onset Date Resolution Date Notes Provider Name and Address Organization Details Recorded Time Celiac disease 281831797 Active 2012 Celiac disease; Location : None Progress : Stable Added By: Sarah Dyer Add to Current Problems : NO ProblemS tatus: Current Not Available [facility] 2 20:56:01 Breast neoplasm screenin g NOS Completed 201402/18/2015 Screenin g mammogra m - other; Location : None Severity : Moderate Progress : Stable Added By: Elena Quintero Add to Current Problems : YES ProblemS tatus: Resolve Not Available [facility] 1 04:40:35 Asthma 812024167 Active 2023 Lin Manrique null, [place] [facility] 17:39:49 Left inguinal hernia 004510180 Active 2023 Lin Manrique [place], [place] [facility] 17:39:49 Chronic low back pain 596920238 Active 2023 Lin Lamba null, [place] [facility] 17:39:49 Hypothyr oidism 06405819 Active 2023 Lin Manrique null, [place] [facility] 17:39:49 Body mass index 20-24 - normal 575453600 Active 2023 Lin Lamba null, [place] [facility] 17:39:49 Family history of coronary arterios clerosis 055074254 Active 2023 Lin Lamba null, [place] [facility] 17:39:49 Hearing loss of left ear 219929530 Active 2023 Lin negron, [place] [facility] 4 17:39:49 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 Please review this document and add these problems to the patient's chart manually as needed. Problem Notes None recorded. Procedures Surgical History Date Name Laterality Status Provider Name and Address Organization Details Recorded Time 2023 Date of Last Colonoscopy completed Teddy Manrique [facility] [facility] 4 16:29:06 2022 Date of Last Pap Smear completed Lin Manrique [facility] 4 16:19:22 2022 bimanual phacoemulsification of cataract with intraocular lens implantation completed [facility] [employer] [facility] 3 18:13:06 2022 Most Recent Mammogram completed [facility] [employer] [facility] 3 10:45:42 2022 Most Recent Bone Density completed Ruben Griffith MD [facility] [place], [address] 4 17:05:43 2022 excision of cyst of bone completed [facility] [employer] [facility] 3 18:15:24 2017 Colonoscopy completed Mónica Britsch [facility] 3 16:48:45 2013 arthroscopy of knee with meniscus repair completed Mónica Britsch [facility] 3 18:12:01 operation on nose completed Mónica Britsch [facility] 3 16:56:19 reconstruction of anterior cruciate ligament of knee joint completed Mónica Britsch [facility] 3 18:00:09 primary fusion of cervical spine completed [facility] [employer] 3 18:01:47 operative procedure on spinal structure completed Mónica Britsch [facility] 3 18:03:00 endoscopy completed Mónica Britsch [facility] 3 18:09:12 colonoscopy completed Mónica Britsch [facility] 3 18:05:12 operative procedure on spinal structure completed Mónica Britsch [facility] 3 18:17:19 hernia repair completed Lindylan Manrique [facility] 4 16:28:26 colonoscopy completed Glory Wish [facility] 2 18:56:25 cholecystectomy completed Mónica Britsch [facility] 3 16:49:39 endoscopic retrograd e cholangiopancreatography completed Glory Wish [facility] 2 18:58:44 supracervical hysterectomy with removal of both tubes and ovaries completed Glory Wish [facility] 2 19:00:03 nasal sinus procedure completed Jovany pruitte Britsch [employer] [facility] 3 16:54:06 endoscopic carpal tu nnel release completed Mónica Britsch [facility] 3 18:10:37 D & C completed Mónica Britsch [facility] 3 16:51:50 C Section completed Mónica Britsch [facility] 3 16:47:21 Removal of Ovaries completed Greta Aguileralister [facility] 2 11:16:54 Gall bladder completed Greta Aguileralister [facility] 2 11:16:54 Imaging Results Imaging Date Name Status LastModified by Organiz ation Details LastModified Time 08/14/2022 MAMMO, screening, tomosynthesis, bilateral completed [address], [address], 08/31/2022 17:42:46 12/25/2023 MAMMO, screening, tomosynthesis, bilateral completed [facility] [address] [facility], [place], [address], 01/02/2024 18:39:30 Procedure Notes None recorded. Medical Equipment None Reported. Allergies Allergen ID Allergen Name Allergen Category Reaction Reaction Severity Criticality Documentation Date Start Date Code Code System Note Provider Name and Address Organization Details Recorded Time 206855 codeine phosphate medicatio n Not available Not available Not available 01/11/20212012 2672 RxNorm Sever ity: Moder ate; Not Available Not Available Not Available 832140 morphine sulfate medicatio n Not available Not available Not available 01/11/20212012 96868 RxNorm Sever ity: Moder ate; Not Available Not Available Not Available 489798 Levaquin medicatio n Not available Not available Not available 01/11/20212012 88701 2 RxNorm Sever ity: Moder ate; Not Available Not Available Not Available 804941 Avelox medicatio n Not available Not available Not available 01/11/20212012 18697 6 RxNorm Sever ity: Moder ate; Comme nt: Aller gy Delet ed On: 12/20; Not Available Not Available Not Available 546386 naproxen medicatio n Not available Not available Not available 01/11/20212012 7258 RxNorm Sever ity: Moder ate; Comme nt: Aller gy Delet ed On: 12/20; Not Available Not Available Not Available 325980 wheat gluten extract food Not available Not available Not available 01/11/20212017 88283 81 RxNorm Sever ity: Moder ate; Not Available Not Available Not Available 550702 wheat preparati on food,medi cation Not available Not available Not available 03/29/2021 95069 52 RxNorm Not Available Not Available Not Available 966215 mold extract environme nt Not available Not available Not available 03/29/2021 21426 8 RxNorm Not Available Not Available Not Available 276655 house dust allergeni c extract environme nt,medica tion Not available Not available Not available 10/01/2022 43568 9 RxNorm Not Available Not Available Not Available 380357 cigarette smoke environme nt Not available Not available Not available 10/01/2022 55281 UNK Not Available Not Available Not Available 098806 Tylenol medicatio n Not available Not available Not available 10/01/202284032 3 RxNorm Not Available Not Available Not Available 348030 codeine medicatio n palpitati ons Not available Not available 10/23/2023 2670 RxNorm Not Available Not Available Not Available Medications Name Sig Start Date Stop Date Status Note LastModified by Organization Details LastModified Time diclofena c 3 % topical gel 03/29 completed Not Available Not Available Not Available prednison e 10 mg tablet TAKE 4 TABLETS BY MOUTH ONCE DAILY FOR 2 DAYS 3 ONCE DAILY FOR 2 DAYS 2 ONCE DAILY FOR 2 DAYS 1 ONCE DAILY FOR 2 DAYS active Not Available Not Available No t Available azithromy steff 250 mg tablet TAKE 2 TABLETS BY MOUTH ON DAY 1. TAKE 1 TABLET BY MOUTH ON DAY 2 TO 5 09/30 completed Not Available Not Available Not Available ofloxacin 0.3 % eye drops INSTILL 1 DROP THREE TIMES DAILY TO SURGICAL EYE STARTING 2 DAYS PRIOR TO SURGERY AND CONTINUE FOR 1 WEEK AFTER. 10/01 completed Not Available Not Available Not Available hydrocodo ne 5 mg-acetam inophen 325 mg tablet active Not Available Not Available Not Available meloxicam 15 mg tablet TAKE 1 TABLET BY MOUTH ONCE DAILY 10/01 completed Not Available Not Available Not Available prednison e 20 mg tablet TAKE 1 TABLET BY MOUTH EVERY 12 HOURS FOR 5 DAYS 09/30 completed Not Available Not Available Not Available hydrocodo ne 10 mg-acetam inophen 325 mg tablet 09/30 completed Not Available Not Available Not Available liothyron ine 5 mcg tablet TAKE 1 TABLET BY MOUTH EVERY MORNING ON EMPTY STOMACH NO FOOD FOR 30 MINUTES active Not Available Not Available No t Available ketorolac 0.5 % eye drops 10/01 completed Not Available Not Available Not Available oxycodone -acetamin ophen 5 mg-325 mg tablet TAKE 1 TABLET BY MOUTH EVERY 6 HOURS NEEDED FOR PAIN 10/01 completed Not Available Not Available Not Available amoxicill in 875 mg tablet TAKE 1 TABLET BY MOUTH EVERY 12 HOURS FOR 10 DAYS 09/30 completed Not Available Not Available Not Available prednisol one acetate 1 % eye drops,shannon pension INSTILL 1 DROP THREE TIMES DAILY INTO SURGICAL EYE STARTING AFTER SURGERY AND CONTINUI NG FOR 3 WEEKS active Not Available Not Available No t Available Synthroid 25 mcg tablet Take 1 tablet every day by oral route. active Not Available Not Available No t Available benzonata te 100 mg capsule TAKE 1 CAPSULE BY MOUTH THREE TIMES A DAY NEEDED FOR COUGH 10/01 completed Not Available Not Available Not Available prednison e 50 mg tablet TAKE 1 TABLET BY MOUTH ONCE DAILY FOR 5 DAYS 09/30 completed Not Available Not Available Not Available Advair Diskus 250 mcg-50 mcg/dose powder for inhalatio n INHALE 1 DOSE BY MOUTH ONCE DAILY RINSE MOUTH AFTER USE DO NOT SWALLOW active Not Available Not Available No t Available Synthroid 50 mcg tablet 10/01 completed Synthroi d 50 mcg oral tablet RxNorm: 252540 Allow Substitu tion: True Refill Denied: No Refill DateOccu rred: 11/18/19 13 Edited by: Kiana Nicolas ) on 03/12/20 20 Stopped by: Kiana Nicolas ) on Not Available Not Available Not Available monteluka st 10 mg tablet TAKE 1 TABLET BY MOUTH ONCE DAILY AT BEDTIME active Not Available Not Available No t Available hydrocort isone 10 mg tablet TAKE 1 TABLET BY MOUTH IN TNE MORNING AND TAKE 1 TABLET AT NOON UP FOR 14 DAYS 10/01 completed Not Available Not Available Not Available fluticaso ne 100 mcg-salme terol 50 mcg/dose blistr powdr for inhalatio n active Not Available Not Available Not Available zolpidem 10 mg tablet TAKE 1/2 TO 1 (ONE-TIFFANY F TO ONE) TABLET BY MOUTH IN THE EVENING NEEDED FOR INSOMNIA active Not Available Not Available No t Available methylpre dnisolone 4 mg tablets in a dose pack 10/01 completed Not Available Not Available Not Available albuterol sulfate HFA 90 mcg/actua tion aerosol inhaler INHALE 2 PUFFS BY MOUTH EVERY 6 HOURS NEEDED active Not Available Not Available No t Available finasteri de 5 mg tablet active Not Available Not Available Not Available gentamici n 0.1 % topical ointment APPLY OINTMENT TOPICALL Y TO THE AFFECTED AREA OF THE FOOT DAILY. COVER NEEDED. active Not Available Not Available No t Available progester one micronize d 100 mg capsule TAKE 1 CAPSULE BY MOUTH IN THE EVENING 6 DAYS PER WEEK active Not Available Not Available No t Available amoxicill in 875 mg-potass ium clavulana te 125 mg tablet TAKE 1 TABLET BY MOUTH EVERY 12 HOURS FOR 10 DAYS active Not Available Not Available No t Available amoxicill in 500 mg-potass ium clavulana te 125 mg tablet TAKE 1 TABLET BY MOUTH THREE TIMES DAILY 09/30 completed Not Available Not Available Not Available Estrace 0.01% (0.1 mg/gram) vaginal cream 10/01 completed Not Available Not Available Not Available nitrofura ntoin monohydra te/macroc rystals 100 mg capsule active Not Available Not Available Not Available chlorhexi dine gluconate 0.12 % mouthwash SWISH 15ML BY MOUTH FOR 30 SECONDS THEN SPIT. USE EVERY MORNING AND EVERY EVENING AFTER BRUSHING TEETH. DO NOT SWALLOW. 10/01 completed Not Available Not Available Not Available melatonin active Not Available Not Kirsten ilable Not Available iodine synergy 10mg 1 tab 3x week active Not Available Not Available No t Available Vitamin C active Not Available Not Kirsten ilable Not Available Flonase 02/23 completed Flonase RxNorm: 80456 Allow Substitu tion: True Refill Denied: No Refill DateOccu rred: 11/18/19 13 Not Available Not Available Not Available vitamin E active Not Available Not Kirsten ilable Not Available testoster one active Not Available Not Available Not Available pregnenol one (bulk) active Not Available Not Available Not Available progester one active Not Available Not Available Not Available zinc 1 daily 2021 active Zinc RxNorm: 15266 Allow Substitu tion: True Refill Denied: No Refill DateOccu rred: 02/24/20 18 Edited by: Ruben Paris) on 03/08/20 19 Stopped by: Ruben Paris) on Not Available Not Available Not Available DHEA active Not Available Not Availa ble Not Available Fish Oil 03/29 completed Fish Oil Allow Substitu tion: True Refill Denied: No Refill DateOccu rred: 02/24/20 18 Edited by: Ruben Paris) on 03/08/20 19 Stopped by: Ruben Paris) on Not Available Not Available Not Available iron 03/29 completed Iron RxNorm: [id number] Allow Substitu tion: True Refill Denied: No Refill DateOccu rred: 02/24/20 18 Edited by: Ruben Paris) on 03/08/20 19 Stopped by: Ruben Paris) on Not Available Not Available Not Available Vitamin D 03/29 completed Vitamin D Allow Substitu tion: True Refill Denied: No Refill DateOccu rred: 02/24/20 18 Edited by: Ruben Paris) on 03/08/20 19 Stopped by: Ruben Paris) on Not Available Not Available Not Available Synthroid 09/30 completed Not Available Not Available Not Available Iron (ferrous sulfate) 2 x daily active Not Available Not Available No t Available Vitamin D3 active Not Available Not Available Not Available Super B Complex 03/29 completed Super B Complex RxNorm: 0 Allow Substitu tion: True Refill Denied: No Refill DateOccu rred: 02/24/20 18 Edited by: Ruben Paris) on 03/08/20 19 Stopped by: Ruben Paris) on Not Available Not Available Not Available N-Acetyl- L-Cystein e 1-2 x day active Not Available Not Available No t Available Green Tea active Not Available Not Kirsten ilable Not Available Enzyme with meals active Not Available Not Available No t Available EstroGel active Not Available Not Avai lable Not Available Advair HFA 230 mcg-21 mcg/actua tion aerosol inhaler INHALE 2 PUFFS BY MOUTH TWICE DAILY RINSE MOUTH WITH WATER AFTER USE DO NOT SWALLOW active Not Available Not Available No t Available Advair HFA active Not Available Not Available Not Available Xifaxan 550 mg tablet TAKE 1 TABLET BY MOUTH THREE TIMES DAILY FOR 14 DAYS 10/01 completed Not Available Not Available Not Available Probiotic 03/29 completed Probioti c Allow Substitu tion: True Refill Denied: No Refill DateOccu rred: 02/24/20 18 Edited by: Ruben Paris) on 03/08/20 19 Stopped by: Ruben Paris) on Not Available Not Available Not Available Super Probiotic 20 billion cell capsule Take by oral route. active Not Available Not Available No t Available sodium,po tassium,m ag sulfates 17.5 gram-3.13 gram-1.6 gram oral soln active Not Available Not Available Not Available Myrbetriq 25 mg tablet,ex tended release Take 1 tablet(s ) by mouth daily 01/17 completed Myrbetri q 25mg Tablets, Extended Release Allow Substitu tion: True Refill Denied: No Not Available Not Available Not Available Linzess 10/01 completed Not Available Not Available Not Available Breo Ellipta 100 mcg-25 mcg/dose powder for inhalatio n INHALE 1 PUFF ONCE DAILY RINSE MOUTH WITH WATER AFTER USE DO NOT SWALLOW active Not Available Not Available No t Available Esteem Synergy Plus active Not Available Not Available Not Available [place] DHA 1000 mg active Not Available Not Av ailable Not Available R-lipoic acid active Not Available Not Available Not Available Xhance 93 mcg/actua tion breath activated aerosol active Not Available Not Available Not Available magnesium chelate, mal, threon active Not Available Not Available Not Available Ryaltris active Not Available Not Avai lable Not Available Vitals Date Recorded Body height Body mass index (BMI) Body weight Body temperature Systolic blood pressure Diastolic blood pressure Provider Name and Address Organization Details Last Updated DateTime 2 170.18 cm 20.3 kg/m2 69873.5 7 g 98.7 [degF] 122 mm[Hg] 74 mm[Hg] Greta Clifford [employer] [facility] 2 11:57:25 Date Recorded Body height Body mass index (BMI) Body weight Body temperature Systolic blood pressure Diastolic blood pressure Provider Name and Address Organization Details Last Updated DateTime 3 170.18 cm 18.4 kg/m2 39143.4 6 g 98.1 [degF] 100 mm[Hg] 62 mm[Hg] Mónica Branham [employer] [facility] 3 10:48:56 Date Recorded Body height Body mass index (BMI) Body weight Body temperature Systolic blood pressure Diastolic blood pressure Provider Name and Address Organization Details Last Updated DateTime 4 170.18 cm 18.6 kg/m2 85544.0 6 g 98.7 [degF] 100 mm[Hg] 68 mm[Hg] Lin Manrique [place] [employer] [facility] 4 16:27:00 Social History Question Answer Notes LastModified by Organizat ion Details LastModified Time Tobacco Smoking Status Never Smoker Greta Clifford migdalia, [employer] [facility] 03/29/2021 11:16:48 What Is Your Level Of Alcohol Consumption? Occasional Information not available 03/29/2021 How Many Years Have You Consumed Alcohol? 45 Information not available 03/29/2021 Are You Blind Or Do You Have Difficulty Seeing? No [email or web address] Information not available 10/26/2023 Are You Currently Employed? Yes Information not available 10/26/2023 Are You Deaf Or Do You Have Serious Difficulty Hearing? No [email or web address] Information not available 10/26/2023 What Type Of Diet Are You Following? GLUTENFREE Information not available 03/29/2021 Do You Or Have You Ever Used E-cigarettes Or Vape? Never Used Electronic Cigarettes Information not available 03/29/2021 How Many Children Do You Have? 2 Information not available 03/29/2021 Are There Any Occupational Health Risks Where You Work? No [email or web address] Information not available 10/26/2023 What Is Your Relationship Status? Information not available 03/28/2021 Are You Sexually Active? Yes Information not available 03/28/2021 Do You Use Any Illicit Or Recreational Drugs? No Information not available 09/30/2022 Do You Or Have You Ever Used Any Other Forms Of Tobacco Or Nicotine? No Information not available 09/30/2022 Sex: Unknown Functional Status Question Answer Note LastModified by Organization D etails LastModified Time What is your exercise level? Moderate Information not available 03/29/2021 Mental Status None recorded. Family History Relationship Description Onset Age of this Age Resolved Age Notes LastModified by Organization Details LastModified Time Mother Malignant tumor of breast [email or web address] Not available 08/2021 19:02:08 Mother Malignant neoplastic disease Not available 09/2021 11:16:14 Mother Hypertensive disorder Not available 09/2021 11:16:14 Father Heart disease Not available 09/2021 11:16:14 Brother Hypercholest erolemia Not available 09/2021 11:16:14 Sister Malignant neoplastic disease Not available 09/2021 11:16:14 Sister Hypertensive disorder Not available 09/2021 11:16:14 Sister Heart disease Not available 09/2021 11:16:14 Sister Hypercholest erolemia Not available 09/2021 11:16:14 Sister Cerebrovascu lar accident Not available 0 03/29/2021 11:16:14 Medical History Condition Response Gallbladder disease Y Osteopenia N Asthma N Gynecological History Statement/Question Response If Post Menopausal, Age at Menopause 40' s Date of Last Colonoscopy 08/05/2023 Date of last HPV 10/01/2022 Date of LMP 01/21/2009 Most Recent Bone Density 07/28/2022 HPV Vaccine N Date of Last Pap Smear 10/03/2022 Most Recent Mammogram 08/14/2022 Current Control Method Menopause Age at Menarche 16 Obstetrics History GPAL:G 2 P 2 0 0 2 Type Value Full Term 2 Living 2 Total 2 Past Encounters Encounter ID Performer Location Encounter Start Date Encounter Closed Date Diagnosis/Indication Diagnosis SNOMED-CT Code Diagnosis ICD10 Code Diagnosis Note [id number] Ruben Griffith MD [facility] [address] [place] [address] 03/29/2021 11:04:05 03/29/2021 12:29:37 Gynecologic examination 71235154 Z01.89 y.o. here for annual exam. - Pap up to date from , discussed natural course of HPV infection, no new exposures. Plan to repeat cotesting in years. - Routine labs done with PCP - Mammo last year WNL, discussed different guideline recommendtunde gonsalez, pt without family hx, would like to proceed with q2yr screening, repeat next year // rx provided - Colonoscop y done, can continue q10 years screens - DEXA at age 65 or after 50 if you have risk factors for osteoporos is - Depression screen NEG - BMI counseling , diet and exercise reviewed - RTO for annual or PRN [id number] Ruben Griffith MD [address] [address] 10/01/2022 10:42:37 10/02/2022 14:43:00 Gynecologic examination 29980823 Z01.419 67 y.o. here for annual exam.- Pap up to date from , discussed natural course of HPV infection, no new exposures. Plan to repeat cotesting in years.- Routine labs done with PCP- Mammo last year WNL, discussed different guideline recommendtunde gonsalez pt without family hx, would like to proceed with q2yr screening, repeat next year // rx provided- Colonoscop y done, can continue q10 years screens- DEXA at age 65 or after 50 if you have risk factors for osteoporos is- Depression screen NEG- BMI counseling , diet and exercise reviewed- RTO for annual or PRN Depression screening 171 290401 Z13.31 Screening for malignant neoplasm of cervix 151143668 Z12.4 [id number] Ruben Griffith MD [address] [address] 10/26/2023 15:58:03 11/16/2023 13:09:23 Gynecologic examination 62790234 Z01.419 67 y.o. here for annual exam.- Pap up to date from , discussed natural course of HPV infection, no new exposures. Plan to repeat cotesting in years.- Routine labs done with PCP- Mammo last year WNL, discussed different guideline recommendtunde gonsalez, pt without family hx, would like to proceed with q2yr screening, repeat next year // rx provided- Colonoscop y done, can continue q10 years screens- DEXA at age 65 or after 50 if you have risk factors for osteoporos is- Depression screen NEG- BMI counseling , diet and exercise reviewed- RTO for annual or PRN Depression screening 171 069790 Z13.31 Refer to intake screening Screening for malignant neoplasm of breast 352521616 Z12.31 Screening for malignant neoplasm of cervix 773242768 Z12.4 Screening for osteoporosis 809000247 Z13.820 Menopause present 953305 006 Z78.0 discussed any form of transderma l estrogen and possiblyy prometrium 100mg daily o as well as possibly osphena and vagifem... .can do any combinatio n and will call [facility] pharmacy for any hormone regimen if desires to [facility] in [facility] for estrogen cream vaginally or E,P,and or Testostero ne cream combinatio n and we would use estriol only as a form of estrogen for least amt of stimulatio n to the breast if desiresFOL LOW-UP: Schedule follow-up appointmen ts on a p.r.n. basis. . Health Concerns Section Related Observation LastModified by Organization Detai ls LastModified Time None Recorded Concern Status LastModified by Organization Details LastModified Time None Recorded Advance Directives Directive None Recorded Payers Encounter Date Sequence Insurance Name Policy Number Policy Escobar Covered Member ID Escobar Member ID Guarantor Name 03/29/2021 2 [employer] - CHOICE (POS II) [id number] Chastity Rock [id number] 2 Chastity Rock 10/01/2022 2 [employer] - CHOICE (POS II) [id number] Chastity Rock [id number] 2 Chastity Rock 10/26/2023 2 [employer] - CHOICE (POS II) [id number] Chastity Rock [id number] 2 Chastity Rock 10/26/2023 1 [place] Chastity Rock [id number] Chastity Rock Notes Date Note Type Note Provider Name and Address Organization Details Recorded Time 03/29/2021 text/html Annual Refueler Post-MenopausalRep orted bypatient.Menopaus al Symptoms:no menopausal symptoms; normal vaginal lubrication Vaginal Bleeding:history of menopause having occurred; no history of post menopausal bleeding Urinary Symptoms:no hematuria; no incontinence; no nocturia; no urinary frequency Vulva:no genital lesion; no vulvar atrophy Vagina:normal vaginal discharge; no vaginal atrophy Breast:no breast lump; no nipple discharge; no breast pain Sexual Complaints:no sexual complaints Psychological Symptoms:no depression; no anxiety Ruben Griffith MD [address] [place] [address], [phone], [facility] [employer] 03/29/2021 12:29:30 10/01/2022 text/html Annual Refueler Post-MenopausalRep orted bypatient.Menopaus al Symptoms:no menopausal symptoms; normal vaginal lubrication Vaginal Bleeding:history of menopause having occurred; no history of post menopausal bleeding Urinary Symptoms:no hematuria; no incontinence; no nocturia; no urinary frequency Vulva:no genital lesion; no vulvar atrophy Vagina:normal vaginal discharge; no vaginal atrophy Breast:no breast lump; no nipple discharge; no breast pain Sexual Complaints:no sexual complaints Psychological Symptoms:no depression; no anxiety Chastity devmiriampoed a cough few months ago and during had some urinary issueshe states it has gotten better since but is till a issue Ruben Griffith MD [address] [place] [address], [phone], [facility] [employer] IV 10/27/2022 08:19:40 10/26/2023 text/html Annual Refueler Post-MenopausalRep orted bypatient.Menopaus al Symptoms:no menopausal symptoms Breast:no breast lump Sexual Complaints:no sexual complaints Preventive Measures:encourage regular mammograms starting age 40; encourage self breast examination Ruben Griffith MD [address] [place] [address], [phone], [facility] [employer] 11/14/2023 18:50:42 OBGyn Episode Ob Episode Information Episode Created Date Number of Fetuses Patient Bloodtype Patient rh Status Prepregnancy Weight lbs Domestic Partner Domestic Partner Phone Father Name Segment Block Layer Status 10/26/19 1 CLOSED Fetus Data First Name Last Name Admitted to NICU Weight (g) Sex Living Outcome Pediatric Complications Fetus ID Race Codes Race Delivery Type F Full Term [id number] Jethro Calculation Initial Jethro Date Initial Exam Date Initial Exam Provider Initial Ultrasound Date Last Menstrual Period Date Ultra Sound Weeks Gestation 0 Eighteen To Twenty Week Jethro Update Ultra Sound Date Fundal Height At Umbil Quickening Date Ultra Sound Latest Weeks Gestation Final Jethro Confirmed By Final Jethro Confirmed Date Final Jethro Date Ultra Sound Latest Days Gestation 0 0 Menstrual History Last Menstrual Date Menses Monthly On Bcp Conception Prior Menses Frequency Hcg Plus Date Menarche Onset Age Delivery Information Delivery Date Delivery Type Labor Anesthesia Weeks Gestation Incision Type Labor Labor Length Hrs Delivered By Post Complications Tubal Sterilization Discharge Date Comments 9 Discharge Information Feeding Method Contraceptive Method Maternal HG B and HCT Levels Ob Episode Information Episode Created Date Number of Fetuses Patient Bloodtype Patient rh Status Prepregnancy Weight lbs Domestic Partner Domestic Partner Phone Father Name Segment Block Layer Status 10/26/19 24 1 CLOSED Fetus Data First Name Last Name Admitted to NICU Weight (g) Sex Living Outcome Pediatric Complications Fetus ID Race Codes Race Delivery Type M Full Term [id number] Jethro Calculation Initial Jethro Date Initial Exam Date Initial Exam Provider Initial Ultrasound Date Last Menstrual Period Date Ultra Sound Weeks Gestation 0 Eighteen To Twenty Week Jethro Update Ultra Sound Date Fundal Height At Umbil Quickening Date Ultra Sound Latest Weeks Gestation Final Jethro Confirmed By Final Jethro Confirmed Date Final Jethro Date Ultra Sound Latest Days Gestation 0 0 Menstrual History Last Menstrual Date Menses Monthly On Bcp Conception Prior Menses Frequency Hcg Plus Date Menarche Onset Age Delivery Information Delivery Date Delivery Type Labor Anesthesia Weeks Gestation Incision Type Labor Labor Length Hrs Delivered By Post Complications Tubal Sterilization Discharge Date Comments 5 Discharge Information Feeding Method Contraceptive Method Maternal HG B and HCT Levels"
--- OUTSIDE RECORDS SUMMARY | 2024-05-01 11:39 | XMS_ITS | Clinical Summary ---
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 3 Active lactobacillus comb no.10 [...] 10/07/2022 Assessment & Plan (03/19/2023 3:36 PM DIRECT SALES CONSULTANT): The patient has been doing very well [...] 12/22/2012 Assessment & Plan (05/18/2020 8:51 AM DIRECT SALES CONSULTANT): The patient has a history of asthma [...] Resolved Date BYRD (dyspnea on exertion) 06/15/2020 Surgical History Surgery Date Site/Laterality Comments KNEE ARTHROSCOPY Left Knee Arthroscopy - (Added by TW Conv) ACL SC ARTHRD ANT INTERBODY MIN DSC CRV BELOW C2 Cervical Vertebral Fusion - (Added by TW Conv) C 3-4 ACDF SC DELIVERY ONLY Section - (Added by TW Conv) SC DILATION & CURETTAGE DX&/THER NONOBSTETRIC Dilation And Curettage - (Added by TW Conv) SC CHOLECYSTECTOMY Cholecystectomy - (Added by TW Conv) SINUS SURGERY Sinus Surgery - (Added by TW Conv) X2 NASAL SEPTUM SURGERY Nasal Septal Deviation Repair - (Added by TW Conv) SC EXCISION NASAL POLYP SIMPLE Simple Excision Of Nasal Polyp - (Added by TW Conv) SC NEUROPLASTY &/TRANSPOS MEDIAN NRV CARPAL TUNNE Right Neuroplasty Decompression Median Nerve At Carpal Tunnel - (Added by TW Conv) SC TOTAL ABDOMINAL HYSTERECT W/WO RMVL TUBE OVARY Hysterectomy - (Added by TW Conv) SECTION SPINE SURGERY LUMBAR NO HARDWARE X2 CERVICAL FUSION HARDWARE PRESENT HYSTERECTOMY KNEE SURGERY Right MENICUS ERCP 03/23/2016 - 03/22/2017 FOOT SURGERY Left HARDWARE LATER REMOVED CATARACT EXTRACTION W/ INTRAOCULAR LENS IMPLANT Bilateral Medical History Medical History Date Comments Ileus (CMS/HCC) (HCC) Ileus - (A dded by TW Conv) WHEN HAD PANCREATITIS IN PAST History of acute pancreatitis Hypothyroidism 08/17/2014 Arthralgia of shoulder 03/06/2014 Asthma 12/22/2012 Celiac disease 12/22/2012 Cervical radiculopathy 08/17/2014 Degeneration of intervertebr al disc of cervical region 01/05/2014 Lumbar radiculopathy 08/17/2014 Primary osteoarthritis of right hip 09/09/2023 Primary osteoarthritis of left knee 09/09/2023 PONV (postoperative nausea a nd vomiting) HL (hearing loss) 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 L 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 Family History Medical History Relation Name Comments Arthritis Brother Family history of arthritis - (Added by TW Conv) Cancer Brother Family history of malignant neoplasm - (Added by TW Conv) Gout Brother Family history of gout - (Added by TW Conv) Arthritis Father Family history of arthritis - (Added by TW Conv) Cancer Father Family history of malignant neoplasm - (Added by TW Conv) Gout Father Family history of gout - (Added by TW Conv) Heart disease Father Family history of cardiac disorder - (Added by TW Conv) Hypertension Father Family history of hypertension - (Added by TW Conv) Arthritis Mother Family history of arthritis - (Added by TW Conv) Cancer Mother Family history of malignant neoplasm - (Added by TW Conv) Gout Mother Family history of gout - (Added by TW Conv) Hypertension Mother Family history of hypertension - (Added by TW Conv) Arthritis Sister Family history of arthritis - (Added by TW Conv) Cancer Sister Family history of malignant neoplasm - (Added by TW Conv) Relation Name Status Comments Brother Father Mother Sister Social History Tobacco Use Types Packs/Day Years [...] on file Legal Sex Female 5:18 AM DIRECT SALES CONSULTANT Gender Identity Not on file Sexual Orientation Not on file Obstetrics History Last Filed Vital Signs Vital Sign Reading [...] 09/22/2023 3:07 PM CDT Plan of Treatment Health Maintenance Due Date Last Done Comments Colon Cancer Screening-Colonoscopy 1955 Depression Screening 1955 Hepatitis C Screening 1955 Pneumococcal vaccine 65+ (1 of 2 - PCV) 06/07/1963 Hepatitis B Screening 06/07/1975 Zoster Vaccine (1 of 2) 06/07/2007 Well Visit 65+ 2022 Breast Cancer Screening-Mammogram 08/15/2023 08/14/2022, 08/14/2022, 12/14/2020, Additional history exists Influenza Vaccine (#1) 2023 Osteoporosis Screening-Bone Density Scan 07/22/2024 07/22/2022, 07/03/2017, 07/03/2017 Fall Risk Assessment 09/21/2024 09/22/2023 DTaP/Tdap/Td Vaccine (2 - Td or Tdap) 07/19/2033 07/20/2023 Medical Devices Implanted Type Area Cloth Checker Device Identifier Shelf Expiration Date Model / Serial / Lot Cervical And Lumbar Surgery Hardware Present N/A: Cervical-Denae mbar Spine [employer]/C R Bard Mesh Surgical Inguinal Hernia Synthetic Patch 3dmax 5x7in [id number] - [id number] Implanted:Qty: 1 on 09/25/2023 by Michael Simmons MD at [facility] Left: Abdomen [employer]/C R Bard [id number] 01/18/2028 [id number] / / [id number] Procedures Procedure Name Priority Date/Time Associated Diagnosis [...] Manny Galicia D.O. BW: QUINTEN Report ID: [id number] Reading Location: [id number] [EOD] Narrative 07/03/2017 10:37 AM CDT EXAM DESCRIPTION: Bone Density Hip/Spine (STD) COMPLETED DATE/TIME: 07/03/2017 9:32 am REASON FOR STUDY: 62 y/o year old F with given history of screening. Cloth Checker/Model: [employer] Horizon A (S/N [id number]) CLINICAL INFORMATION: Current height: 66.5 inches Maximum [...] old F with given history of screening. Cloth Checker/Model: [employer] Horizon A (S/N [id number]) CLINICAL INFORMATION: Current height: 66.5 inches Maximum [...] Manny Galicia D.O. BW: QUINTEN Report ID: [id number] Reading Location: [place] [address] [EOD] Betito Dickerson MD [employer] DXA PROCEDURES Final Re sult from Last 3 Months or Most Recently Relevant to Health Maintenance Insurance MEDICARE [facility] Care Teams Brush Head Maker Relationship Specialty Start Date End Date Willy Rivera MD [address] [address] PCP - General Internal Medicine 09/09/23 Donnell Mujica MD [address] [place] [address] [address] Consulting Physician Cardiovascular Disease 09/09/23
--- OUTSIDE RECORDS SUMMARY | 2024-05-01 11:39 | XMS_ITS | Patient Health Summary ---
Author Organization [facility] Address [address] [place] [address] Care Team Providers Care Diabetes Manager Name Role Phone Unavailable Primary Care Provider Unavailabl e Note from [facility],non-owned Affiliates and Associated Physician Practices is amultiple site organization consisting of ambulatory clinics and hospital sitesin [place], [place], [place] and [place]. This disclosure is being madepursuant to the Care Everywhere program and may not contain all information available regarding this patient. Last updated 17.[facility] Allergies * Moxifloxacin * Chlorzoxazone * Codeine * Levofloxacin * Morphine * Naproxen * Vioxx Medications * Be aware that medications may not be up to date on this document. Alwaysverify current medications with the patient. * fluticasone-salmeterol (ADVAIR DISKUS) 100-50 MCG/DOSE inhaler Inhale 1 Puff by mouth 2 times daily. * fluticasone propionate (FLONASE) 50 MCG/ACT nasal spray Christiana 1 Christiana into each nostril 2 times daily. * VIVELLE TD Apply to skin. As directed * Cetirizine-Pseudoephedrine (ALLERGY D-12 PO) Take by mouth. * [place]-3 Fatty Acids (FISH OIL) 1200 MG CAPS Take by mouth. * Cholecalciferol (VITAMIN D PO) Take by mouth. * IRON PO Take by mouth. * Calcium-Vitamin D-Vitamin K (CALCIUM SOFT CHEWS) 500-100-40 MG-UNT-MCG CHEW Take by mouth. * MAGNESIUM CITRATE PO Take by mouth. * B Complex-C (SUPER B COMPLEX PO) Take by mouth. * VITAMIN E PO Take by mouth. * Melatonin 1 MG CAPS Take by mouth. * vitamin C (ASCORBIC ACID) 1000 MG TABS tablet Take 1,000 mg by mouth once daily. * Nutritional Supplements (DHEA) 15-50 MG CAPS Take by mouth. * IODINE, KELP, PO Take by mouth. * Probiotic Product (SOLUBLE FIBER/PROBIOTICS PO) Take by mouth. * liothyronine 5 MCG capsule Take 5 mcg by mouth once daily. * levothyroxine (SYNTHROID) 100 MCG tablet Take 100 mcg by mouth daily before breakfast. Active Problems Problem Noted Date Diagnosed Date [...] Mass Index 20.05 07/20/2014 8:16 AM CDT Procedures * DERMATOPATHOLOGY(Performed 11/18/2022) * DERMATOPATHOLOGY(Performed 05/20/2022) * DERMATOPATHOLOGY(Performed 01/14/2022) * DERMATOPATHOLOGY(Performed 05/14/2021) * DERMATOPATHOLOGY(Performed 02/28/2020) * DERMATOPATHOLOGY(Performed 05/10/2019) * EMG WITH NERVE CONDUCTION STUDY(Performed 04/05/2014) * IMAGING/RADIOLOGY/XRAY RESULTS ORDER(Performed 12/08/2013) * NERVE CONDUCTION TEST(Performed 04/29/2011) * NERVE CONDUCTION TEST(Performed 04/29/2011) * IMAGING/RADIOLOGY/XRAY RESULTS ORDER(Performed 04/25/2011) * IMAGING/RADIOLOGY/XRAY RESULTS ORDER(Performed 05/09/2009) * GROSS + MICRO EXAM(Performed 01/23/2009) Results * DERMATOPATHOLOGY (11/18/2022 3:33 AM CDT) Only the most recent of6 resultswithin the time period is included. Case Report Dermatopathology Report Case: [id number] Authorizing Provider: Jose Salvador MD Collected: 11/18/2022 03:33 AM Ordering Location: [facility] Received: 11/19/2022 07:10 AM Pathologist: Hope Alejo MD Specimens: A) - Skin, right shoulder B) - Skin, left medial pinzon 4:39 PM CDT DERMATOPATHOLOGY LABORATORY Final Diagnosis Specimen A. SKIN, right shoulder: BASAL CELL CARCINOMA, SUPERFICIAL MULTIFOCAL (C44.519) Specimen B. SKIN, left medial pinzon: SQUAMOUS CELL CARCINOMA IN SITU, PRESENT AT THE BASE OF THE SPECIMEN (D04.72) (see microscopic description and comment) 4:39 PM T DERMATOPATHOLOGY LABORATORY Clinical History A: BCCA vs SCCA Path#[id number] B: BCCA vs SCCA Path#[id number] 4:39 PM CDT DERMATOPATHOLOGY LABORATORY Gross Description Specimen [...] measuring 6x5x2 mm. Jar 0. 4:39 PM CDT DERMATOPATHOLOGY LABORATORY Microscopic Description Specimen [...] carcinoma cannot be ruled out. 4:39 PM CDT DERMATOPATHOLOGY LABORATORY Disclaimer An external and internal positive and negative controls are appropriate for the histochemical, immunohistochemical and immunofluorescence stain(s) in this case (if any), except where stated explicitly. The performance characteristics of the stain(s) cited in this report were developed and its performance characteristic determined by the Dermatopathology Laboratory at [facility], directed by Dr. Joel Alejo. These tests need not be, and therefore are not, approved by the [place] Food and Drug Administration. The tests are used for clinical purposes. Billing Codes Specimen Charges Stain Charges 25504 57891 1 1 3 4:39 PM CDT DERMATOPATHOLOGY LABORATORY Embedded Images 3 4:39 PM CDT DERMATOPATHOLOGY LABORATORY Pathology/Cytology TISSUE SPECIMEN FROM SKIN / Unknown 11/18/2022 3:33 AM CDT 11/19/2022 7:10 AM CDT Miscellaneous samples (specimen) TISSUE SPECIMEN FROM SKIN / Unknown 11/18/2022 3:33 AM CDT 11/19/2022 7:10 AM CDT Jose Salvador MD LAB - PATHOLOGY/CYTO LOGY ORDERABLES DERMATOPATHOLOGY LABORATORY [facility] - Department of Dermatology [facility] Medicine [address] [place] [address] [phone] * EMG WITH NERVE CONDUCTION STUDY (04/05/2014) Provider Unknown NEUROLOGY ORDERABLES * IMAGING/RADIOLOGY/XRAY RESULTS ORDER (12/08/2013) Only the most recent of3 resultswithin the time period is included. Anatomical Region Laterality Modality Other Provider Unknown IMAGING * NERVE CONDUCTION TEST (04/29/2011) Josh Gonzalez MD NEUROLOGY ORDERABLES * NERVE CONDUCTION TEST (04/29/2011) Provider Unknown NEUROLOGY ORDERABLES * GROSS + MICRO EXAM (01/23/2009 8:45 AM GEAR HOBBER OPERATOR) Result CASE NUMBER [id number] Comment: ORDERING PHYSICIAN BENNETT GRIFFITH SPECIMEN TYPE Uterus, Cervix-Bilateral Tubes / Ovaries Date of Surgery 01/23/2009 1000 Surgeon BENNETT GRIFFITH MD SPECIMEN SOURCE Uterus, bilateral tubes and ovaries. *Pre Op Dx Pain lower right quad, bleeding abnormal uterine, cyst ovarian. GROSS DESCRIPTION Received unfixed and labeled with the patient's name Chastity Rock and date of 1955 uterus, bilateral tubes and ovaries is a 99 gram aggregate of fragments of uterus. No definite cervix is identified. The aggregate measures 11 x 10 x 3 cm. Two ovaries and fallopian tubes are identified. One ovary measures 2.5 x 1.5 x 0.8 cm. The ovary has a convoluted, pink-yellow outer surface. Cut surfaces of the ovary are unremarkable. The second ovary is somewhat fragmented and measures approximately 3.7 x 1.5 x 0.8 cm. The outer surface of the second ovary is pink-yellow and convoluted. Cut surfaces of the second ovary are unremarkable. The fallopian tubes are pink-holloway and measure 4 x 0.5 x 0.5 cm and 3.5 x 0.6 x 0.5 cm. The fimbriated ends are identified. One of the tubes has a paratubal cyst measuring 0.3 cm in greatest dimension. Summary of sections A1 and A2=possible endomyometrium. A3=construction representative sections of one ovary. A4=construction representative sections of one fallopian tube. A5=construction representative sections of second ovary. A6=construction representative sections of second fallopian tube. Grossed by Miquel Rose D.O. *MICROSCOPIC EXAM Sections demonstrate a proliferative pattern endometrium. There are foci of benign endometrial glands and stroma infiltrating deep into the myometrium. There is a paratubal cyst on one fallopian tube. The second fallopian tube is unremarkable. The ovaries are unremarkable. Read by Miquel Rose D.O. DIAGNOSIS UTERUS, BILATERAL TUBES AND OVARIES, SUPRACERVICAL HYSTERECTOMY WITH BILATERAL SALPINGO-OOPHORECTOMY 1. PROLIFERATIVE PATTERN ENDOMETRIUM. 2. ADENOMYOSIS. 3. HISTOLOGICALLY UNREMARKABLE RIGHT AND LEFT OVARIES. 4. ONE FALLOPIAN TUBE WITH A PARATUBAL CYST, AND ONE HISTOLOGICALLY UNREMARKABLE FALLOPIAN TUBE. 5. NO EVIDENCE OF MALIGNANCY. RELEASED BY MIQUEL ROSE MISCELLANEOUS SAMPLES / Unknown 01/23/2009 8:45 AM GEAR HOBBER OPERATOR 01/23/2009 9:46 AM GEAR HOBBER OPERATOR Historical Provider LAB - PATHOLOGY/C YTOLOGY ORDERABLES
--- OUTSIDE RECORDS SUMMARY | 2024-05-01 11:39 | XMS_ITS | Clinical Summary ---
Author Organization [facility] Address [address] [place] [address] Care Team Providers Care Inner Layer Scrubber Tender Name Role Phone Mikal Guevara MD Primary Care Provider + Allergies Active Allergy Reactions Criticality Noted Date Comments Gluten Other (See Comments) 11/21/2021 Celiac dx Morphine Palpitations Low 04/05/2021 Tylenol-Codeine #2 Palpitations Low 03/19/2021 Medications liothyronine (CYTOMEL) 5 mcg Tablet Take 5 mcg by mouth daily. Active levothyroxine 25 mcg tablet Take 25 mcg by mouth daily in the morning. Active HYDROcodone-acetam inophen (NORCO) 10-325 mg TabletIndications: Lumbar radiculopathy Take 1 Tablet by mouth every 6 hours as needed for Pain. Max Daily Amount: 4 Tablets 28 Tablet 12/02/2021 5:23 PM CDT 2 Active docusate sodium (Colace) 100 mg capsule Take 1 Capsule (100 mg) by mouth 2 times daily. 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 Gender Identity Not on file Sexual Orientation Not on file Last Filed Vital Signs Vital Sign Reading Time Taken Comments Blood Pressure 128/81 12/02/2021 5:30 PM CDT Pulse 57 12/02/2021 5:30 PM CDT Temperature 37.2 C (98.9 F) 12/02/2021 4:58 PM CDT Respiratory Rate 17 12/02/2021 5:30 PM CDT Oxygen Saturation 99% 12/02/2021 5:30 PM CDT Inhaled Oxygen Concentration - - Weight 54.9 kg (121 lb) 12/02/2021 11:40 AM CDT Height 167.6 cm (5' 6 ) 12/02/2021 11:40 AM CDT Body Mass Index 19.53 12/02/2021 11:40 AM CDT Plan of Treatment Health Maintenance Due Date Last Done Comments DTAP/TDAP/TD VACCINES (1 - Tdap) 1976 PNEUMOCOCCAL VACCINE 65+ YEA RS (1 of 2 - PCV) 1976 COLORECTAL SCREENING 2002 Colorectal Cancer Screening 2002 FIT-DNA Q 3 years 2002 FIT/FOBT Q 1 year 2002 Flex Sig/CT Colonography Q 5 years 2002 ZOSTER VACCINE (1 of 2) 06/07/2007 RSV VACCINE (60+ or ) (1 - Risk 60-74 years 1-dose series) 2017 BREAST CANCER SCREENING 12/14/2021 12/14/2020, 04/28 INFLUENZA VACCINE (#1) 2023 OSTEOPOROSIS SCREENING Completed 07/03/2017 Medical Devices Implanted Type Area Machine Sand Mixer Device Identifier Shelf Expiration Date Model / Serial / Lot Hemostatic Surgiflo 8ml W/ Thrombin 2994 - Sna Implanted:Qty: 1 on 12/02/2021 by Reji Marroquin MD at [facility] Hemostatic N/A: Spine Lumbar [employer] 12/20/2022 2994 / NA / [id number] Insurance AETNA CHOICE PPO RX [facility] [employer] Care Teams Inner Layer Scrubber Tender Relationship Specialty Start Date End Date Mikal Guevara MD [address] [id number] PCP - General Family Practice 11/26/21
--- OUTSIDE RECORDS SUMMARY | 2024-05-01 11:40 | XMS_ITS | Data Portability ---
Author Organization [place] [facility] OFF[facility] Address [address] [place] [address] Care Team Providers Care Hooking Machine Operator Name Role Phone LUIS SARAVIA Primary Care Provider Assessment No assessment recorded. Plan of Treatment Reminders Order Date Submit Date Provider Last Modified By Organization Details Last Modified Time Details Appointments ESTABLISH ED PATIENT DETAILED 2024 10:45A M Donnell Monroe i, MD Not available Not available Not available Lab None recorded. Referral None recorded. Procedures None recorded. Surgeries None recorded. Imaging electroca rdiogram 2023 024 [email or web address] Not available 09/03/2023 12:05:42 Medication Orders None recorded. Patient TargetsNo targets recorded. Patient InstructionsNo instructions recorded. Reason for Referral None Reported. Results Created Date Observation Date Name Description Value Unit Range Abnormal Flag Note LastModifiedBy Organization Detail LastModifiedTime 08/08/19 24 08/08/2023 elect pranay hilariogr am No observ ation record ed. [email or web address] Not Available 2023 12:06:11 09/15/19 24 09/09/2023 , echoc ardio gram No observ ation record ed. [facility], [facility] [address], [place], [address], 09/15/2023 09:57:15 09/21/19 24 09/09/2023 santosh fernandez echoc ardio gram No observ ation record ed. [email or web address] Not Available 2023 14:41:23 Result Notes None recorded. 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 Keith Schmidtto [place], [place] - [facility] 4 09:59:44 Left inguinal hernia 090690852 Active 2023 Parker Mesto null, [place] - [facility] 4 09:59:44 Menopause Active 2023 Keith [place] [facility] 4 14:11:28 Electrocardiog lorenzo abnormal 557561936 Active 2023 Keith Schmidtto [place] - [facility] 4 09:59:44 Body mass index 20-24 - normal 435794579 Active 2023 Keith Schmidtto [place] - [facility] 4 09:59:44 Hearing loss of left ear 979461634 Active 2023 Keith Schmidtto [place], [place] - [facility] 4 09:59:44 Family history of coronary arterioscleros is 613045085 Active 2023 Keith Schmidtto [place], [place] - [facility] 4 09:59:44 Notes:Some problems listed i n Document: #[id number] could not be added to this patient's chart. Please review this document and add these problems to the patient's chart manually as needed. Problem Notes None recorded. Procedures Surgical History None recorded. Imaging Results Imaging Date Name Status LastModified by Organization Details LastModified Time 08/08/2023 electrocardiogram completed Informa tion not available 08/08/2023 12:06:11 09/09/2023 , echocardiogram completed [facility], [facility] [address] [address], [place], [address], 09/15/2023 09:57:15 09/09/2023 exercise stress echocardiogram completed Information not available 09/21/2023 14:41:23 Procedure Notes None recorded. Medical Equipment None Reported. Allergies Allergen ID Allergen Name Allergen Category Reaction Reaction Severity Criticality Documentation Date Start Date Code Code System Note Provider Name and Address Organization Details Recorded Time 75393 codeine medicatio n palpitati ons Not available Not available 09/15/2023 2870 [address] Parker [place], [place] - [facility] 09:59:31 Medications Name Sig Start Date Stop Date Status Note LastModified by Organization Details LastModified Time prednisone 10 mg tablet TAKE 4 TABLETS BY MOUTH ONCE DAILY FOR 2 DAYS 3 ONCE DAILY FOR 2 DAYS 2 ONCE DAILY FOR 2 DAYS 1 ONCE DAILY FOR 2 DAYS 09/14 completed Not Available Not Available Not Available prednisone 20 mg tablet TAKE 2 TABLETS BY MOUTH ONCE DAILY FOR 5 DAYS 09/14 completed Not Available Not Available Not Available liothyronin e 5 mcg tablet 2 tabs daily active Not Available Not Available No t Available levothyroxi ne 25 mcg tablet 1 tab daily active Not Available Not Available No t Available prednisolon e acetate 1 % eye drops,suspe nsion INSTILL 1 DROP THREE TIMES DAILY INTO SURGICAL EYE STARTING AFTER SURGERY AND CONTINUIN G FOR 3 WEEKS 09/14 completed Not Available Not Available Not Available Advair Diskus 250 mcg-50 mcg/dose powder for inhalation INHALE 1 DOSE BY MOUTH ONCE DAILY RINSE MOUTH AFTER USE DO NOT SWALLOW 09/14 completed Not Available Not Available Not Available montelukast 10 mg tablet TAKE 1 TABLET BY MOUTH ONCE DAILY AT BEDTIME 09/14 completed Not Available Not Available Not Available fluticasone 100 mcg-salmete rol 50 mcg/dose blistr powdr for inhalation as needed active Not Available Not Available Not Available albuterol sulfate HFA 90 mcg/actuati on aerosol inhaler INHALE 2 PUFFS BY MOUTH EVERY 6 HOURS NEEDED active Not Available Not Available No t Available progesteron e micronized 100 mg capsule TAKE 1 CAPSULE BY MOUTH IN THE EVENING 6 DAYS PER WEEK active Not Available Not Available No t Available amoxicillin 875 mg-potassiu m clavulanate 125 mg tablet TAKE 1 TABLET BY MOUTH EVERY 12 HOURS FOR 10 DAYS active Not Available Not Available No t Available nitrofurant oin monohydrate /macrocryst als 100 mg capsule 09/14 completed Not Available Not Available Not Available magnesium 150mg-5 caps daily 09/12 completed Not Available Not Available Not Available iron 1x daily 09/12 completed Not Available Not Available Not Available liothyronin e 5mcg 2 tab daily 09/12 completed Not Available Not Available Not Available Advair HFA 230 mcg-21 mcg/actuati on aerosol inhaler INHALE 2 PUFFS BY MOUTH TWICE DAILY RINSE MOUTH WITH WATER AFTER USE DO NOT SWALLOW active Not Available Not Available No t Available sodium,pota ssium,mag sulfates 17.5 gram-3.13 gram-1.6 gram oral soln 09/14 completed Not Available Not Available Not Available Breo Ellipta 100 mcg-25 mcg/dose powder for inhalation INHALE 1 PUFF ONCE DAILY RINSE MOUTH WITH WATER AFTER USE DO NOT SWALLOW active Not Available Not Available No t Available Xhance 93 mcg/actuati on breath activated aerosol 2023 active Not Available Not Available Not Avai lable Ryaltris 665 mcg-25 mcg/spray nasal spray [facility] 1 spray twice a day by intranasa l route. active Not Available Not Available No t Available Vitals Date Recorded Body height Body mass index (BMI) Body weight Heart rate Oxygen saturation Oxygen saturation in Arterial blood by Pulse oximetry Systolic blood pressure Diastolic blood pressure Provider Name and Address Organization Details Last Updated DateTime 4 165.1 cm 20 kg/m2 84587.0 8 g 62 /min 99 % 99 % 111 mm[Hg] 70 mm[Hg] Taylor Navarro [facility] 4 11:19:53 Date Recorded Body height Body mass index (BMI) Body weight Oxygen saturation Oxygen saturation in Arterial blood by Pulse oximetry Heart rate Systolic blood pressure Diastolic blood pressure Provider Name and Address Organization Details Last Updated DateTime 4 165.1 cm 19.8 kg/m2 21588.4 9 g 96 % 96 % 78 /min 136 mm[Hg] 64 mm[Hg] Della Islas [facility] 4 15:36:01 Social History Question Answer Notes LastModified by Organizat ion Details LastModified Time What Is Your Relationship Status? [email or web address] Information not available 08/07/2023 Sex: Unknown Functional Status None recorded. Mental Status None recorded. Family History Relationship Description Onset Age of this Age Resolved Age Notes LastModified by Organization Details LastModified Time Mother Malignant tumor of breast 78 [email or web address] Not available 2023 14:18:03 Mother Heart disease [email or web address] Not available 2023 11:09:19 Mother Diabetes mellitus [email or web address] Not available 2023 11:09:45 Father Heart disease 78 [email or web address] Not available 2023 14:18:27 Sister Cerebrovascu lar accident [email or web address] Not available 14:18:42 Sister Coronary arterioscler osis 60 [email or web address] Not available 2023 14:19:05 Sister Tongue carcinoma [email or web address] Not available 2023 14:19:20 Notes:sister-stroke high cho l sister/brother Medical History Condition Response Asthma Y Gynecological HistoryNo gynecological history recorded. Obstetrics History GPAL:G 0 P 0 0 0 0 Past Encounters Encounter ID Performer Location Encounter Start Date Encounter Closed Date Diagnosis/Indication Diagnosis SNOMED-CT Code Diagnosis ICD10 Code Diagnosis Note [id number] [facility] [address] [place] [address] 08/08/2023 10:33:52 08/08/2023 11:52:36 Hypothyroidism 11597086 E03.9 Asthma 950694155 J45.90 9 Chronic low back pain 27 5476998 M54.50 Electrocar diogram abnormal 842443207 R94.31 Will get exercise stress echo, to look for any new ischemia Dyslipidemia 597018841 E 78.5 [id number] Donnell Mujica MD [facility] [address] [place] [address] 09/15/2023 14:56:51 09/15/2023 16:19:05 Electrocardiogram abnormal 090031818 R94.31 Had a negative stress echo Hypothyroidism 26781081 E03.9 Asthma 655410215 J45.90 9 Chronic low back pain 27 0826235 M54.50 Dyslipidemia 819964343 E 78.5 Needs to keep LDL less than 70, and HDL more than 40 Will get lipid profile results from PCP Health Concerns Section Related Observation LastModified by Organization Detai ls LastModified Time None Recorded Concern Status LastModified by Organization Details LastModified Time None Recorded Advance Directives Directive None Recorded Payers Encounter Date Sequence Insurance Name Policy Number Policy Escobar Covered Member ID Escobar Member ID Guarantor Name 08/08/2023 2 [employer]ET[employer] (POS) [id number] Chastity Rock [id number] 2 Chastity Rock 08/08/2023 1 [place] Chastity Rock [id number] Chastity Rock 09/15/2023 2 [employer] (POS) [id number] Chastity Rock [id number] Chastity Rock 09/15/2023 1 [place] Chastity Rock [id number] Chastity Rock Notes Date Note Type Note Provider Name and Address Organization Details Recorded Time 08/08/2023 text/html 08/08/23CC: Abno rmal EKGChastity ROCK is a 68 years-old Female with h/o asthma and hypothyroidism was referred for cardiac evaluation due to Abnormal EKG. Today reports:referral dr. saravia -abnormal ECG.Denies chest pain.Denies shortness of breath at rest. Has mild dyspnea on exertion.No orthopnea. No PNDs.Denies heart palpitations.Denies dizziness. Denies syncope or near syncope.No ankle or leg edema.No major bleeding events.No reported side effects from medications. Taking medications as prescribed with no missed doses.Denies snoring, daytime somnolence and AM headache.*Last LDL was done on .Pt takes. [facility] [place] [facility] 08/10/2023 08:27:08 09/15/2023 text/html 09/15/23CC : Pre -op cardiac clearanceChastity ROCK is a 68 years-old Female with h/o asthma and hypothyroidism is here for cardiac clearance for Robotic hernia repair She was last seen in the clinic on 08/08/23, since then she had a negative stress testShe denies ER visits and hospitalizations since she was last seen. Today reports:Denies chest pain.Denies shortness of breath at rest. Has mild dyspnea on exertion.No orthopnea. No PNDs.Denies heart palpitations.Denies dizziness. Denies syncope or near syncope.No ankle or leg edema.No major bleeding events.No reported side effects from medications. Taking medications as prescribed with no missed doses.Denies snoring, daytime somnolence and AM headache.*Pt dose not have any lipid labs previously. dose not takes any statins. Donnell Mujica MD [address] [place], [address], [facility] - [facility] 09/15/2023 16:16:42 OBGyn Episode No OBEpisode recorded.
--- OUTSIDE RECORDS SUMMARY | 2024-05-01 11:40 | XMS_ITS | Encounter Summary ---
Author Organization [facility] Address [address] [place] [address] Care Team Providers Care Refrigerator Car Icer Name Role Phone Mikal Guevara MD Primary Care Provider [phone] Chip Claire DO [facility] Care [facility] Provid er Encounter Details Date Type Department Care Team (Late st Contact Info) Description 06/30/2017 Abstract [facility] Conversion Md, Generic Conversion, Social History Tobacco Use Types Packs/Day Years [...] Rule Out 04/28/2020 04/28/2020 04/29/2020 3:56 PM ACCOUNT SERVICES ANALYST COVID-19 Rule Out 12/08/2022 12/08/2022 12/08/2022 3:30 PM CDT documented as of this encounter Care Teams Refrigerator Car Icer Relationship Specialty Start Date End Date Mikal Guevara MD PCP - General 05/16/15 08/12/21 Chip Claire DO PCP - General FAMILY PRACTICE 08/13/21 06/26/23 Albania Dyer FNP- [address] [place] [address] PCP - General Nurse Practitioner Family 06/27/23 documented as of this encounter
--- OUTSIDE RECORDS SUMMARY | 2024-05-01 11:40 | XMS_ITS | Encounter Summary ---
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
--- OUTSIDE RECORDS SUMMARY | 2024-05-01 11:44 | XMS_ITS | Continuity of Care Document ---
Author Organization [facility] Address [address] Pedro christianson [address] [place] [address] Phone Care Team Providers Care Signal Timer Name Role Phone Adalid CESAR, Melonie Unavailable [...] by oral route every day - Active [id number] (unknown strength) Not Available - Active MELATONIN [...] OFFICE/OUTPA TIENT VISIT EST [facility], [address] [facility] [address], [place], [address], [place] tel:[phone] [facility] Primary osteoarthritis of left kneeRight knee pain, unspecified chronicityCont usion of right knee, initial encounterEffus ion of right knee 4 Adalid Melonie. [address], [place], [place], [address], [place]. tel:[phone] Referring Provider: Willy Rivera, [address] [place] [address], [place], [address] . tel:[phone] OFFICE/OUTPA TIENT VISIT EST [facility], [address] [facility] [address], [place], [address], [place] tel:[phone] [facility] Primary osteoarthritis of left knee 4 Adalid Melonie. [address], [place], [place], [id number], [place]. tel:[phone] OFFICE/OUTPA TIENT VISIT EST [facility], [address] [address], [place], [address], [place] tel:[phone] [facility] Primary osteoarthritis of left knee 4 Adalid Melonie. [address], [place], [place], [address], [place]. tel:[phone] OFFICE/OUTPA TIENT VISIT EST [facility], [address] [facility] [address], [place], [address], [place] tel:[phone] [facility] Primary osteoarthritis of left knee 3 Adalid Melonie. [address], [place], [place], [address], [place]. tel:[phone] OFFICE/OUTPA TIENT VISIT EST [facility], [address] [facility] [address], [place], [address], [place] tel:[phone] [facility] Primary osteoarthritis of left knee Sep-04 27- 3 Adalid Wilhelm. [address], [place], [place], [address], [place]. tel:[phone] OFFICE/OUTPA TIENT VISIT EST [facility], [address] [facility] [address], [place], [address], [place] tel:[phone] [facility] Pain in left kneePrimary osteoarthritis of left knee Jun- 3 Osman Serna. [address], [place], [address]. tel:[phone] OFFICE/OUTPA TIENT VISIT EST [facility], [address] [facility] [address], [place], [address], [place] tel:[phone] [facility] [place] [facility] Primary osteoarthritis of right hip Feb- 3 Pj Beltran. [address], [place], [place], [address]. tel:[phone] [facility], [address] [facility], [place], [address], [place] tel:[phone] [facility] Pain in right hip b-2 0- 3 No Information Referring Provider: Ruby florentino, [address], [place], [address] . tel:[phone] OFFICE/OUTPA TIENT VISIT EST [facility], [address] [facility], [place], [address], [place] tel:[phone] [facility] [place] [facility] Trochanteric bursitis of right hipPain in right hipPrimary osteoarthritis of right hip b- 3 Osman Serna. [address], [place], [address]. tel:[phone] Referring Provider: Mikal Christianson, [address], [place], [address]. tel:[phone] OFFICE/OUTPA TIENT VISIT NEW [facility], [address] [facility] [facility] [address], [place], [address], tel:[phone] [facility] Pain in right hipTrochanteri c bursitis of right hip Dedraalmas Charless. [address], [place], [place], [address]. tel:[phone] Referring Provider: Reji Marroquin M, [address], [place], [address]. tel:[phone] Family History Family Member Type Diagnosis Age At Onset Mother Problem Cancer, cervical Mother Problem Hypertension Sister Problem Cardiovascular disease Mother Problem Cancer, breast Father Problem Cardiovascular disease Payers Payer name Insurance type Covered republican ID Jesse madrid(s) Medicare E2 OT [id number] [employer] - [facility] HMO/OAP/QCHP [id number] Social History Type Description Quantity Date [...]
[2024-05-01 12:42] VITALS: BP 140/69; PULSE 73; RESP 18; TEMP 36.8; O2SAT 99
--- NOTE | 2024-05-01 14:27 | ED.GENADULT ---
HPI - General Adult General Chief complaint: Upper Respiratory Infection Stated complaint: cough and sinus pressure Time Seen by Provider: 05/01/24 14:27 Source: patient Mode of arrival: ambulatory Limitations: no limitations History of Present Illness HPI narrative: Here for cough and sinus pressure. She reports a 3 week history of sinus drainage and cough. She went to ENT on 04/26 was diagnosed with a sinus infection and started on amoxicillin. She is continuing her amoxicillin as prescribed. She was also prescribed some medication to use with her netipot, which she continues. She reports ongoing sinus drainage, cough, and her left ear feeling clogged. She is using Mucinex DM, albuterol, Delsym, Guaifenesin, Claritin, and Zyrtec-D with some relief. She reports sinus symptoms are improving somewhat since starting the Amoxicillin, however her left ear is still feeling clogged and her cough has not improved. She reports some wheezing and shortness of breath that improves with albuterol use. She has a history of asthma and albuterol use. All other systems reviewed and are negative except as noted in HPI and ROS. Related Data Home Medications ?Medication ?Instructions ?Recorded ?Confirmed ?Last Taken ?Type conjugated estrogens 0.3 mg tablet 0.3 mg PO DAILY 05/01/24 Unknown History liothyronine 5 mcg tablet mcg 05/01/24 Unknown History testosterone 100 mg/mL mg IM 05/01/24 Unknown History intramuscular suspension vitamin E 100 unit/0.25 mL oral unit 05/01/24 Unknown History drops Allergies Allergy/AdvReac Type Severity Reaction Status Date / Time codeine Allergy Palpitation Verified 05/01/24 14:57 s Review of Systems Review of Systems: CONSTITUTIONAL: Denies fever and chills. Denies sweats. EYES: Denies visual changes, redness, or discharge. ENT: Reports rhinorrhea and congestion. Denies sore throat. Reports left ear otalgia/feeling clogged. CARDIOVASCULAR: Denies chest pain, palpitations, or edema. RESPIRATORY: Reports cough. Denies dyspnea today. Reports wheezing. Reports increased albuterol use. GASTROINTESTINAL: Denies abdominal pain, vomiting, or diarrhea. GENITOURINARY: Denies dysuria or hematuria. SKIN: Denies rash or itching. MUSCULOSKELETAL: Denies back pain, joint pain, or myalgia. NEUROLOGIC: Denies numbness or weakness. Reports headache. PSYCHIATRIC: Denies anxiety or depression. All other systems reviewed are negative, except as documented in HPI. PMFSH Comments At time of signature, I have reviewed and agree with nursing past medical, surgical, social and family history unless otherwise noted. Please see nursing chart for further information. There is no relevant family history pertinent to the presenting complaint. Exam Narrative: GENERAL: This is a well-nourished, well-developed patient, in no apparent distress. She appears acutely ill. HEAD: normocephalic, atraumatic. EYES: Sclera clear/white. Vision is grossly intact. EARS: External ears normal, auditory canals clear and without drainage, TMs opacified with left TM fluid visible. TMs without perforation. Hard of hearing. NOSE: External nose normal, nares with redness and rhinorrhea. THROAT: Mucous membranes moist, posterior pharynx erythematous with cobblestoning. No exudate or enlarged tonsils noted. NECK: Neck supple, non-tender without lymphadenopathy. CARDIOVASCULAR: Regular rhythm without murmurs, gallops, or rubs. RESPIRATORY: Coarse LS in RML. Diminished LS in bilateral bases. Inspiratory and Expiratory wheezing in full mg bilaterally. +productive cough during exam. SKIN: warm, Dry, intact with no suspicious lesions or rash, good texture and turgor. NEURO: awake, alert, and oriented to person, place and time. There were no obvious focal neurologic abnormalities. EXTREMITIES: No joint tenderness, effusion, or edema noted. Course Course Emergency Course: Patient is aware of diagnosis, understands and agrees to treatment plan. Anticipatory guidance was given. Patient agrees to follow-up as directed and is aware of reasons to seek care at the emergency department. Please be advised this is a medical document. It is intended for [id number] communication. It is written in medical language and may contain unfamiliar abbreviations or verbiage. Medical documents are intended to carry relevant information, facts as evident, and the clinical opinion of the practitioner at the time of the encounter. This report may have been done utilizing a voice recognition system. Attempts have been made to correct errors. However, there may be uncorrected grammatical, spelling, and recognition errors present. The file time of this note does not necessarily represent the time the patient was seen. Level of Care: Express Care Visit Reevaluation(s) Reevaluation #1: After Duoneb, wheezing decreased and lung sounds improved. Cough decreased. Vital Signs Vital signs: Vital Signs Temperature 36.8 C 05/01/24 12:42 Pulse Rate 73 05/01/24 12:42 Respiratory Rate 18 05/01/24 12:42 Blood Pressure 140/69 05/01/24 12:42 Pulse Oximetry 99 05/01/24 12:42 Oxygen Delivery Room Air 05/01/24 12:42 Temperature 36.8 C 05/01/24 12:42 Pulse Rate 90 05/01/24 15:25 Respiratory Rate 18 05/01/24 15:25 Blood Pressure 140/69 05/01/24 12:42 Pulse Oximetry 99 05/01/24 15:25 Oxygen Delivery Room Air 05/01/24 12:42 reviewed. Medical Decision Making MDM Narrative Medical decision making narrative: X-ray was negative for pneumonia. Results were reviewed with patient today. Discussed physical exam findings with patient and reviewed prescriptions. Advised ongoing supportive measures and reviewed signs and symptoms for patient to return to clinic or go to the ER. Reviewed she will continue regimen from ENT. Patient verbalized understanding. Differential Diagnosis Differential Diagnosis: URI vs asthma exacerbation vs bronchitis vs pneumonia Vital Signs Vital Signs: Vital Signs Temperature 36.8 C 05/01/24 12:42 Pulse Rate 73 05/01/24 12:42 Respiratory Rate 18 05/01/24 12:42 Blood Pressure 140/69 05/01/24 12:42 Pulse Oximetry 99 05/01/24 12:42 Oxygen Delivery Room Air 05/01/24 12:42 Temperature 36.8 C 05/01/24 12:42 Pulse Rate 90 05/01/24 15:25 Respiratory Rate 18 05/01/24 15:25 Blood Pressure 140/69 05/01/24 12:42 Pulse Oximetry 99 05/01/24 15:25 Oxygen Delivery Room Air 05/01/24 12:42 Imaging Data My impression: Agree with radiologist. Radiologist's impression: CHEST RADIOGRAPH, PA AND LATERAL CLINICAL HISTORY: RML coarse; lower lobes diminished; wheezing . COMPARISON: None available TECHNIQUE: PA and lateral views of the chest. FINDINGS The cardiomediastinal silhouette is unremarkable. The lungs are clear. Visualized osseous structures and soft tissues are unremarkable. IMPRESSION: No focal infiltrate or effusion Discharge Plan Discharge Clinical Impression: Bronchitis, Asthma exacerbation Patient Disposition: Home, Self-Care Condition: Stable Instructions: Antibiotic Form, Asthma (ED), Acute Bronchitis (ED) Additional Instructions: Your x-ray was negative for pneumonia today. You were diagnosed with bronchitis and an exacerbation of your asthma. Follow printed instructions and take medications as prescribed. Follow-up with primary care. Continue medications as prescribed by ENT specialist. Patient Language: Uruguayan Prescriptions: New prednisone 20 mg tablet 60 mg PO DAILY 5 Days Qty: 15 0RF benzonatate 200 mg capsule 200 mg PO TID PRN (Reason: cough) Qty: 20 0RF albuterol sulfate [Ventolin HFA] 90 mcg/actuation HFA aerosol inhaler 2 puff inhalation QID PRN (Reason: shortness of breath or wheezing) Qty: 8.5 0RF No Action vitamin E 100 unit/0.25 mL drops liothyronine 5 mcg tablet conjugated estrogens 0.3 mg tablet 0.3 mg PO DAILY testosterone 100 mg/mL suspension IM Follow-up/Referrals: Nicole,MD Willy [Primary Care Provider] - Time of Disposition: 16:40
[2024-05-01 15:00] VITALS: PULSE 73; RESP 18; O2SAT 99
[2024-05-01] MEDS: IPRATROPIUM 0.5 MG/ALBUTEROL SULFATE 2.5 MG AMPUL.NEB 3 ML INHALATION (15:02)
[2024-05-01 15:25] VITALS: PULSE 90; RESP 18; O2SAT 99
== END 2024-05-01 17:05 | disposition home or self-care (01) ==
PROVIDERS: Emergency Provider Nurse Practitioner; PCP Internal Medicine
DX: J45.901 Unspecified asthma with (acute) exacerbation (principal)
CPT/HCPCS: 71046; 94640; 99213; G0463

== ENCOUNTER 2024-11-05 14:45 | Emergency (ER) | payer MEDICARE, SELFPAY ==
--- NOTE | ~2024-11-05 | XR_ITS ---
EXAMINATION: XR chest 2V Exam Date/Time: 11/05/2024 15:25 CDT HISTORY: cough 2 weeks, wheezing Comparison: 05/01/2024. RESULT: Lines, tubes, and devices: ACDF hardware. Cholecystectomy clips. Lungs and pleura: Clear. Cardiomediastinal silhouette: Stable. Other: No acute osseous or upper abdominal finding. IMPRESSION: No acute cardiopulmonary process. Reviewed, dictated and finalized at location K.
--- OUTSIDE RECORDS SUMMARY | 2024-11-05 14:49 | XMS_ITS | Encounter Summary ---
Author Organization [facility] Address [address] [place] [address] Care Team Providers Care Tomato Paste Maker Name Role Phone None, Physician Primary Care Provider Unavailabl e Encounter Details Date Type Department Care Team (Late st Contact Info) Description 02/29/2020 Lab Requisition [facility] Lab [address] [facility] [place] [id number] Jose Salvador MD [address] [facility] [place] [address] Social History Tobacco Use Types Packs/Day Years Used Date Smoking Tobacco: Never Alcohol Use Standard Drinks/Week Comments Yes 0 (1 standard drink = 0.6 oz pur e alcohol) Comments No Sex and Gender Information Value Date Recorded Sex Assigned at Not on file Legal Sex Female 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 Not on fi le Not on file documented as of this encounter Plan of Treatment Not on file documented as of this encounter Procedures Procedure Name Priority Date/Time Associated Diagnosis Comments DERMATOPATHOLOGY Routine 02/28/2020 12:0 0 AM SPRINKLER REPAIR TECHNICIAN documented in this encounter Results * DERMATOPATHOLOGY (02/28/2020 12:00 AM SPRINKLER REPAIR TECHNICIAN) Case Report Dermatopathology Report Case: [id number] Authorizing Provider: Jose Salvador MD Collected: 02/28/2020 12:00 AM Ordering Location: [facility]ermPath Lab Received: 02/29/2020 06:26 AM Pathologist: Hope Alejo MD Specimen: Skin, right chest 0 2:42 PM [facility] DERMATOPATHOLOGY LABORATORY Final Diagnosis Specimen A. SKIN, right chest: SQUAMOUS CELL CARCINOMA IN SITU, PRESENT AT THE BASE OF THE SPECIMEN (D04.5) (see microscopic description and comment) 0 2:42 PM [facility] DERMATOPATHOLOGY LABORATORY at 1442 SPRINKLER REPAIR TECHNICIAN Clinical History BCCA vs SCCA. Path # [id number]. 0 2:42 PM [facility] DERMATOPATHOLOGY LABORATORY Gross Description Specimen A: Received is one formalin filled container labeled with the patient's name and designated right chest. The specimen consists of a shave biopsy measuring [id number]. Jar 0. 0 2:42 PM [facility] DERMATOPATHOLOGY LABORATORY Microscopic Description Specimen A. SKIN, right chest: The epidermis shows parakeratosis, full thickness disorderly maturation of keratinocytes, mitoses at different levels, and dyskeratotic cells. The lesion extends to the base of the biopsy. COMMENT: An invasive squamous cell carcinoma cannot be ruled out. 0 2:42 PM [facility] DERMATOPATHOLOGY LABORATORY Disclaimer An external and internal positive and negative controls are appropriate for the histochemical, immunohistochemical and immunofluorescence stain(s) in this case (if any), except where stated explicitly. The performance characteristics of the stain(s) cited in this report were developed and its performance characteristic determined by the Dermatopathology Laboratory at [facility], directed by Dr. Joel Alejo. These tests need not be, and therefore are not, approved by the [place] Food and Drug Administration. The tests are used for clinical purposes. Billing Codes Specimen Charges Stain Charges 22538 1 0 2:42 PM [facility] DERMATOPATHOLOGY LABORATORY Embedded Images 0 2:42 PM [facility] DERMATOPATHOLOGY LABORATORY Pathology/Cytolog y TISSUE SPECIMEN FROM SKIN / Unknown 02/28/2020 02/29/2020 6:26 AM SPRINKLER REPAIR TECHNICIAN us Jose Salvador MD LAB - PATHOLOGY/CYTOLOGY ORDER ADAM Final Result DERMATOPATHOLOGY LABORATORY [facility] - Department of Dermatology [facility] Medicine [address] [place] [address], [address] [phone] documented in this encounter Visit Diagnoses Not on filedocumented in this encounter Care Teams Tomato Paste Maker Relationship Specialty Start Date End Date None, Physician PCP - General 08/17/24 documented as of this encounter
--- OUTSIDE RECORDS SUMMARY | 2024-11-05 14:49 | XMS_ITS | Encounter Summary ---
Author Organization [facility] Address [address] [place] [address] Care Team Providers Care Youth Services Librarian Name Role Phone None, Physician Primary Care Provider Unavailabl e Encounter Details Date Type Department Care Team (Late st Contact Info) Description 11/19/2022 Lab Requisition [facility] - DermPath Lab [address] [facility] [place] [id number] Jose Salvador MD [address] [place] [address] Social History Tobacco Use Types Packs/Day Years Used Date Smoking Tobacco: Never Alcohol Use Standard Drinks/Week Comments Yes 0 (1 standard drink = 0.6 oz pur e alcohol) Comments No Sex and Gender Information Value Date Recorded Sex Assigned at Not on file 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 Not on fi le Not on file documented as of this encounter Plan of Treatment Not on file documented as of this encounter Procedures Procedure Name Priority Date/Time Associated Diagnosis Comments DERMATOPATHOLOGY Routine 11/18/2022 3:33 AM CDT documented in this encounter Results * DERMATOPATHOLOGY (11/18/2022 3:33 AM CDT) Case Report Dermatopathology Report Case: [id number] Authorizing Provider: Jose Salvador MD Collected: 11/18/2022 03:33 AM Ordering Location: [facility] DermPath Lab Received: 11/19/2022 07:10 AM Pathologist: Hope Alejo MD Specimens: A) - Skin, right shoulder B) - Skin, left medial pinzon 4:39 PM T DERMATOPATHOLOGY LABORATORY Final Diagnosis Specimen A. SKIN, right shoulder: BASAL CELL CARCINOMA, SUPERFICIAL MULTIFOCAL (C44.519) Specimen B. SKIN, left medial pinzon: SQUAMOUS CELL CARCINOMA IN SITU, PRESENT AT THE BASE OF THE SPECIMEN (D04.72) (see microscopic description and comment) 4:39 PM T DERMATOPATHOLOGY LABORATORY at 1639 CDT Clinical History A: BCCA vs SCCA Path#[id number] B: BCCA vs SCCA Path#[id number] 4:39 PM CDT DERMATOPATHOLOGY LABORATORY Gross Description [...] carcinoma cannot be ruled out. 4:39 PM T DERMATOPATHOLOGY LABORATORY Disclaimer An external and internal positive and negative controls are appropriate for the histochemical, immunohistochemical and immunofluorescence stain(s) in this case (if any), except where stated explicitly. The performance characteristics of the stain(s) cited in this report were developed and its performance characteristic determined by the Dermatopathology Laboratory at [facility], directed by Dr. Joel Alejo. These tests need not be, and therefore are not, approved by the [place] Food and Drug Administration. The tests are used for clinical purposes. Billing Codes Specimen Charges Stain Charges 15469 37627 1 1 3 4:39 PM CDT DERMATOPATHOLOGY LABORATORY Embedded Images 3 4:39 PM CDT DERMATOPATHOLOGY LABORATORY Pathology/Cytology TISSUE SPECIMEN FROM SKIN / Unknown 11/18/2022 3:33 AM CDT 11/19/2022 7:10 AM CDT Miscellaneous samples (specimen) TISSUE SPECIMEN FROM SKIN / Unknown 11/18/2022 3:33 AM CDT 11/19/2022 7:10 AM CDT us Jose Salvador MD LAB - PATHOLOGY/CYTOLOGY ORDER ADAM Final Result DERMATOPATHOLOGY LABORATORY [facility] - Department of Dermatology [facility] Special[facility] Medicine [address] [place] [address], [address] [phone] documented in this encounter Visit Diagnoses Not on filedocumented in this encounter Care Teams Youth Services Librarian Relationship Specialty Start Date End Date None, Physician PCP - General 08/17/24 documented as of this encounter
--- OUTSIDE RECORDS SUMMARY | 2024-11-05 14:49 | XMS_ITS | Encounter Summary ---
Author Organization [facility] Address [address] [facility] [place] [address] Care Team Providers Care Sand Mixer Operator Name Role Phone None, Physician Primary Care Provider Unavailabl e Encounter Details Date Type Department Care Team (Late st Contact Info) Description 05/21/2022 Lab Requisition [facility] [address] [facility], [place] [phone] Jose Salvador MD [address] [facility] [address] [address] [address] [address] Social History Tobacco Use Types Packs/Day Years Used Date Smoking Tobacco: Never Alcohol Use Standard Drinks/Week Comments Yes 0 (1 standard drink = 0.6 oz pur e alcohol) Comments No Sex and Gender Information Value Date Recorded Sex Assigned at Not on file Legal Sex Female 8:34 AM CHEMICAL PLANT OPERATOR SUPERVISOR Gender Identity Not on file Sexual Orientation Not on file 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 Not on fi le Not on file documented as of this encounter Plan of Treatment Not on file documented as of this encounter Procedures Procedure Name Priority Date/Time Associated Diagnosis Comments DERMATOPATHOLOGY Routine 05/20/2022 12:0 0 AM CHEMICAL PLANT OPERATOR SUPERVISOR documented in this encounter Results * DERMATOPATHOLOGY (05/20/2022 12:00 AM CHEMICAL PLANT OPERATOR SUPERVISOR) Case Report Dermatopathology Report Case: [id number] Authorizing Provider: Jose Salvador MD Collected: 05/20/2022 12:00 AM Ordering Location: [facility] Received: 05/21/2022 06:36 AM Pathologist: Dana Aburto MD Specimens: A) - Skin, left shoulder B) - Skin, right med upper ankle 3 2:26 PM [facility] DERMATOPATHOLOGY [facility]AT[facility] Final Diagnosis Specimen A. SKIN, left shoulder: SQUAMOUS CELL CARCINOMA, WELL DIFFERENTIATED (C44.629) Specimen B. 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 Jar 0. 3 2:26 PM [facility]ERMATOP[facility] Microscopic Description Specimen A. SKIN, left shoulder: Arising in the epidermis and extending into the dermis there are irregularly shaped aggregates of keratinocytes showing evidence of premature cornification. Specimen B. SKIN, right med upper ankle: The epidermis shows parakeratosis, full thickness disorderly maturation of keratinocytes, mitoses at different levels, and dyskeratotic cells. 3 2:26 PM [facility] DERMATOPATH[facility]Y [facility]ORATORY Disclaimer An external and internal positive and negative controls are appropriate for the histochemical, immunohistochemical and immunofluorescence stain(s) in this case (if any), except where stated explicitly. The performance characteristics of the stain(s) cited in this report were developed and its performance characteristic determined by the Dermatopathology Laboratory at [facility], directed by Dr. Joel Alejo. These tests need not be, and therefore are not, approved by the [place] Food and Drug Administration. The tests are used for clinical purposes. Billing Codes Specimen Charges Stain Charges 30063 49725 1 1 3 2:26 PM CHEMICAL PLANT OPERATOR SUPERVISOR DERMATOPATHOLOGY LABORATORY Embedded Images 3 2:26 PM CHEMICAL PLANT OPERATOR SUPERVISOR DERMATOPATHOLOGY LABORATORY Pathology/Cytology TISSUE SPECIMEN FROM SKIN / Unknown 05/20/2022 05/21/2022 6:36 AM CHEMICAL PLANT OPERATOR SUPERVISOR Miscellaneous samples (specimen) TISSUE SPECIMEN FROM SKIN / Unknown 05/20/2022 05/21/2022 6:36 AM CHEMICAL PLANT OPERATOR SUPERVISOR us Jose Salvador MD LAB - PATHOLOGY/CYTOLOGY ORDER ADAM Final Result DERMATOPATHOLOGY LABORATORY [facility] - Department of Dermatology [facility] Medicine [address] [place] [address], [address] [phone] documented in this encounter Visit Diagnoses Not on filedocumented in this encounter Care Teams Sand Mixer Operator Relationship Specialty Start Date End Date None, Physician PCP - General 08/17/24 documented as of this encounter
--- OUTSIDE RECORDS SUMMARY | 2024-11-05 14:49 | XMS_ITS | Clinical Summary ---
Author Organization [facility] Address [address] [facility] [place] [address] Care Team Providers Care Film Crew Member Name Role Phone None, Physician Primary Care Provider Unavailabl e Source Comments [facility],non-owned Affiliates and Associated Physician Practices is amultiple site organization consisting of ambulatory clinics and hospital sitesin [place], [place], [place] and [place]. This disclosure is being madepursuant to the Care Everywhere program and may not contain all information available regarding this patient. Last updated 17.[facility] Allergies Active Allergy Reactions Criticality Noted Date Comments Moxifloxacin 05/29/2014 Chlorzoxazone 05/29/2014 Codeine 05/24/2009 Levofloxacin 05/05/2011 Morphine 05/24/2009 Naproxen 05/24/2009 Vioxx 05/24/2009 Medications * Be aware that medications may not be up to date on this document. Alwaysverify current medications with the patient. fluticasone-salm eterol (ADVAIR DISKUS) 100-50 MCG/DOSE inhaler Inhale 1 Puff by mouth 2 times daily. Active fluticasone propionate (FLONASE) 50 MCG/ACT nasal spray [place] 1 [place] into each nostril 2 times daily. Active VIVELLE TD Apply to skin. As directed Active Cetirizine-Pseud oephedrine (ALLERGY D-12 PO) Take by mouth. Active Elbridge-3 Fatty Acids (FISH OIL) 1200 MG CAPS Take by mouth. Active Cholecalciferol (VITAMIN D PO) Take by mouth. Active IRON PO Take by mouth. Active Calcium-Vitamin D-Vitamin K (CALCIUM SOFT CHEWS) 500-100-40 MG-UNT-MCG CHEW Take by mouth. Active MAGNESIUM CITRATE PO Take by mouth. Active B Complex-C (SUPER B COMPLEX PO) Take by mouth. Active VITAMIN E PO Take by mouth. Active Melatonin 1 MG CAPS Take by mouth. Active vitamin C (ASCORBIC ACID) 1000 MG TABS tablet Take 1,000 mg by mouth once daily. Active Nutritional Supplements (DHEA) 15-50 MG CAPS Take by mouth. Active IODINE, KELP, PO Take by mouth. Active Probiotic Product (SOLUBLE FIBER/PROBIOTICS PO) Take by mouth. Active liothyronine 5 MCG capsule Take 5 mcg by mouth once daily. Active levothyroxine (SYNTHROID) 100 MCG tablet Take 100 mcg by mouth daily before breakfast. 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 Not on fi le Not on file Last Filed Vital Signs Vital Sign Reading Time Taken Comments Blood Pressure - - Pulse - - Temperature - - Respiratory Rate - - Oxygen Saturation - - Inhaled Oxygen Concentration - - Weight 58.1 kg (128 lb) 07/20/2014 8:16 AM CDT Height 170.2 cm (5' 7) 07/20/2014 8:16 AM CDT Body Mass Index 20.05 07/20/2014 8:16 AM CDT Plan of Treatment Health Maintenance Due Date Last Done Comments COLON MONITORING 1957 COLONOSCOPY - COLON CA SCREENING 1957 CT COLONOGRAPHY - COLON CA SCREENING 1957 FIT - COLON CA SCREENING 1957 FLEX SIG - COLON CA SCREENING 1957 LIPID TESTING 1957 MEDICARE AWV 12 MONTHS 1957 HEPATITIS C SCREENING 06/02/1975 DTAP/TDAP/TD VACCINES (1 - Tdap) 1976 PNEUMOCOCCAL VACCINE 50+ (1 of 1 - PCV) 06/07/2007 ZOSTER VACCINE (1 of 2) 06/07/2007 COVID-19 VACCINE (1 - 2023- season) 2023 DEPRESSION SCREENING 03/23/2024 INFLUENZA VACCINE (#1) 2024 MAMMOGRAM 12/24/2025 12/25/2023, 06/2023, 08/14/2022, Additional history exists COLOGUARD (AGES 45-75) - COLON CA SCREENING 08/18/2026 08/19/2023 Colorectal Cancer Screening 08/18/2026 Respiratory Syncytial Virus (RSV) Vaccine Pt: or over 60 yrs (1 - 1-dose 75+ series) 2032 BONE DENSITY TESTING Completed 07/22/2022, 07/04/19 18 HEPATITIS B VACCINE Aged Out No longe r eligible based on patient's age to complete this topic HIB VACCINE Aged Out No longer eligi ble based on patient's age to complete this topic HPV VACCINE Aged Out No longer eligi ble based on patient's age to complete this topic MENINGOCOCCAL (Group B) VACCINE SHARED DECISION-MAKING Aged Out No longer eligible based on patient's age to complete this topic MENINGOCOCCAL GROUPS A/C/Y/W VACCINE Aged Out No longer eligible based on patient's age to complete this topic Procedures Procedure Name Priority Date/Time Associated Diagnosis Comments GROSS + MICRO EXAM (ILL) Routine 08/17/2024 12:30 PM CDT Chronic sinusitis, unspecified location from Last 3 Months Results * GROSS + MICRO EXAM (ILL) (08/17/2024 12:30 PM CDT) Case Report Surgical Pathology Report Case: [id number] Authorizing Provider: Johnny Kaminski MD Collected: 08/17/2024 12:30 PM Ordering Location: [facility] Received: 08/17/2024 02:39 PM Hospital - Laboratory Pathologist: Doc Davidson DO Specimen: Sinus, Bilateral sinonasal contents 08/19/2024 1:11 PM CDT [facility] Final Diagnosis Bilateral sinonasal content: - Sinonasal mucosa with patchy chronic inflammation. - Bone fragments within normal limits. - No evidence of malignancy. 08/19/2024 1:11 PM CDT [facility] at 1311 CDT Microscopic Description and Comment Microscopic examination is performed and substantiates the above diagnosis. 08/19/2024 1:11 PM CDT [facility] Clinical History Sinusitis. 08/19/2024 1:11 PM CDT [facility] Gross Description A. The requisition and specimen(s) are identified with the patient's name (Chastity Rock), MRN, and . Received in formalin in a specimen collection sock labeled bilateral sinonasal content, are multiple holloway-pink soft tissues admixed with scant holloway-white firm presumed bone, 0.1-0.3 cm in greatest dimension and aggregating 1.3 x 0.3 x 0.2 cm. The specimen is submitted in toto in cassette A1 post decalcification. AW 08/19/2024 1:11 PM CDT [facility] Pathologist Location at [facility] 08/19/2024 1:11 PM CDT [facility] Disclaimer The performance characteristics of all immunohistochemical and indirect immunofluorescence stains (if any) cited in this report were determined by the Histopathology Laboratory of [facility]. Some of these tests were developed by our own laboratory and have not been cleared or approved by the US Food and Drug Administration. The FDA does not require this test to go through premarket FDA review. These tests are used for clinical purposes. They should not be regarded as investigational or for research. This laboratory is certified under the Clinical Laboratory Improvement Amendments (CLIA) as qualified to perform high complexity clinical laboratory testing. This case was interpreted by the [facility] Department of Pathology. When applicable, select reference laboratory testing is performed at the [facility], [address] [place] [id number]. 08/19/2024 1:11 PM CDT [facility] Embedded Images 08/19/2024 1:11 PM CDT [facility] Pathology/Cytolo gy SINUS / Unknown 08/17/2024 12:30 PM CDT 08/17/2024 2:39 PM CDT Johnny Kaminski MD LAB - PATHOLOGY/CYTOLOGY ORDER ADAM Final Result [facility] [address] from Last 3 Months Insurance MEDICARE [facility] MEDICARE [facility] Care Teams Film Crew Member Relationship Specialty Start Date End Date None, Physician PCP - General 08/17/24
--- OUTSIDE RECORDS SUMMARY | 2024-11-05 14:49 | XMS_ITS | Encounter Summary ---
Author Organization [facility] Address [address] [place] [address] Care Team Providers Care Business Continuity Strategy Director Name Role Phone None, Physician Primary Care Provider Unavailabl e Encounter Details Date Type Department Care Team (Late st Contact Info) Description 01/16/2022 Lab Requisition [facility] [address] [facility], [place] [phone] Jose Salvador MD [address] [address] Social History Tobacco Use Types Packs/Day Years Used Date Smoking Tobacco: Never Alcohol Use Standard Drinks/Week Comments Yes 0 (1 standard drink = 0.6 oz pur e alcohol) Comments No Sex and Gender Information Value Date Recorded Sex Assigned at Not on file Legal Sex Female 8:34 AM TONG CARRIER Gender Identity Not on file Sexual Orientation Not on file 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 Not on file documented as of this encounter Plan of Treatment Not on file documented as of this encounter Procedures Procedure Name Priority Date/Time Associated Diagnosis Comments DERMATOPATHOLOGY Routine 01/14/2022 12:0 0 AM CDT documented in this encounter Results * DERMATOPATHOLOGY (01/14/2022 12:00 AM CDT) Case Report Dermatopathology Report Case: [id number] Authorizing Provider: Jose Salvador MD Collected: 01/14/2022 12:00 AM Ordering Location: [facility] Received: 01/16/2022 08:17 AM Pathologist: Marlen Farris MD Specimen: Skin, left thigh 1:08 PM CDT DERMATOPATHOLOGY LABORATORY Final Diagnosis Specimen A. SKIN, left thigh: SQUAMOUS CELL CARCINOMA, KERATOACANTHOMA TYPE; SUPERFICIAL PORTIONS OF (C44.729) (see microscopic description) 1:08 PM CDT DERMATOPATHOLOGY LABORATORY at 1308 CDT Clinical History SCCA. Path# [id number] 1:08 PM CDT DERMATOPATHOLOGY LABORATORY Gross Description Specimen A: Received is one formalin filled container labeled with the patient's name and designated left thigh. The specimen consists of a shave biopsy measuring [id number]. Jar 0. 1:08 PM CDT DERMATOPATHOLOGY LABORATORY [...] determined by the Dermatopathology Laboratory at [facility], directed by Dr. Joel Alejo. These tests need not be, and therefore are not, approved by the [place] Food and Drug Administration. The tests are used for clinical purposes. Billing Codes Specimen Charges Stain Charges 02515 1 1:08 PM CDT DERMATOPATHOLOGY LABORATORY Embedded Images 1:08 PM CDT DERMATOPATHOLOGY LABORATORY Pathology/Cytolog y TISSUE SPECIMEN FROM SKIN / Unknown 01/14/2022 01/16/2022 8:17 AM CDT Jose Salvador MD LAB - PATHOLOGY/CYTOLOGY ORDER ADAM Final Result DERMATOPATHOLOGY LABORATORY [facility] - Department of Dermatology [facility] Medicine [address] [place] [address], [address] [phone] documented in this encounter Visit Diagnoses Not on filedocumented in this encounter Care Teams Business Continuity Strategy Director Relationship Specialty Start Date End Date None, Physician PCP - General 08/17/24 documented as of this encounter
--- OUTSIDE RECORDS SUMMARY | 2024-11-05 14:49 | XMS_ITS | Encounter Summary ---
Author Organization [facility] Address [address] [facility] [place] [address] Care Team Providers Care Relief Operator Name Role Phone None, Physician Primary Care Provider Unavailabl e Encounter Details Date Type Department Care Team (Late st Contact Info) Description 05/10/2019 Lab Requisition [facility] [address] [facility] [place] [phone] Jose Salvador MD [address] [facility] [place] [address] Social History Tobacco Use Types Packs/Day Years Used Date Smoking Tobacco: Never Alcohol Use Standard Drinks/Week Comments Yes 0 (1 standard drink = 0.6 oz pur e alcohol) Comments No Sex and Gender Information Value Date Recorded Sex Assigned at Not on file Legal Sex Female 8:34 AM APRICOT WASHER Gender Identity Not on file Sexual Orientation Not on file 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 Not on file documented as of this encounter Plan of Treatment Not on file documented as of this encounter Procedures Procedure Name Priority Date/Time Associated Diagnosis Comments DERMATOPATHOLOGY Routine 05/10/2019 12:0 0 AM APRICOT WASHER documented in this encounter Results * DERMATOPATHOLOGY (05/10/2019 12:00 AM APRICOT WASHER) Case Report Dermatopathology Report Case: [id number] Authorizing Provider: Jose Salvador MD Collected: 05/10/2019 12:00 AM Ordering Location: [facility] DermPath Lab Received: 05/10/2019 02:55 PM Pathologist: Hope Alejo MD Specimen: Skin, left deltoid 0 11:30 AM [facility] DERMATOPATHOLOGY LABORATORY Final Diagnosis Specimen A. SKIN, left deltoid: SQUAMOUS CELL CARCINOMA IN SITU, VERRUCOUS-HYPERTROP HIC TYPE (D04.5) 0 11:30 AM [facility] DERMATOPATHOLOGY LABORATORY at 1130 APRICOT WASHER Clinical History AK vs SCCA. [id number]. 0 11:30 AM [facility] DERMATOPATHOLOGY LABORATORY Gross Description Specimen A: Received is one formalin filled container labeled with the patient's name and designated left deltoid. The specimen consists of a shave biopsy measuring [id number]. Jar 0. 0 11:30 AM [facility] DERMATOPATHOLOGY LABORATORY Microscopic Description Specimen A. SKIN, left deltoid: The epidermis is acanthotic and shows full thickness disorderly maturation of keratinocytes, mitoses at different levels, and dyskeratotic cells. There is overlying parakeratosis and hyperkeratosis. 0 11:30 AM [facility] DERMATOPATHOLOGY LABORATORY Disclaimer An external and internal positive and negative controls are appropriate for the histochemical, immunohistochemical and immunofluorescence stain(s) in this case (if any), except where stated explicitly. The performance characteristics of the stain(s) cited in this report were developed and its performance characteristic determined by the Dermatopathology Laboratory at [facility], directed by Dr. Joel Alejo. These tests need not be, and therefore are not, approved by the [place] Food and Drug Administration. The tests are used for clinical purposes. Billing Codes Specimen Charges Stain Charges 23571 1 0 11:30 AM [facility] DERMATOPATHOLOGY LABORATORY Embedded Images 0 11:30 AM [facility] DERMATOPATHOLOGY LABORATORY Pathology/Cytolog y TISSUE SPECIMEN FROM SKIN / Unknown 05/10/2019 05/10/2019 2:55 PM APRICOT WASHER us Jose Salvador MD LAB - PATHOLOGY/CYTOLOGY ORDER ADAM Final Result DERMATOPATHOLOGY LABORATORY [facility] - Department of Dermatology [facility], 5th Floor Lab [address] [phone] documented in this encounter Visit Diagnoses Not on filedocumented in this encounter Care Teams Relief Operator Relationship Specialty Start Date End Date None, Physician PCP - General 08/17/24 documented as of this encounter
--- OUTSIDE RECORDS SUMMARY | 2024-11-05 14:49 | XMS_ITS | Encounter Summary ---
Author Organization [facility] Address [address] [facility] [place] [address] Care Team Providers Care Deputy Sheriff Lieutenant Name Role Phone None, Physician Primary Care Provider Unavailabl e Encounter Details Date Type Department Care Team (Late st Contact Info) Description 05/14/2021 Lab Requisition [facility] [address] [facility], [place] [phone] Jose Salvador MD [address] [facility] [address] Social History Tobacco Use Types Packs/Day Years Used Date Smoking Tobacco: Never Alcohol Use Standard Drinks/Week Comments Yes 0 (1 standard drink = 0.6 oz pur e alcohol) Comments No Sex and Gender Information Value Date Recorded Sex Assigned at Not on file Legal Sex Female 8:34 AM ROOFING APPRENTICE Gender Identity Not on file Sexual Orientation Not on file 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 Not on fi le Not on file documented as of this encounter Plan of Treatment Not on file documented as of this encounter Procedures Procedure Name Priority Date/Time Associated Diagnosis Comments DERMATOPATHOLOGY Routine 05/14/2021 12:0 0 AM ROOFING APPRENTICE documented in this encounter Results * DERMATOPATHOLOGY (05/14/2021 12:00 AM ROOFING APPRENTICE) Case Report Dermatopathology Report Case: [id number] Authorizing Provider: Jose Salvador MD Collected: 05/14/2021 12:00 AM Ordering Location: [facility] DermPath Lab Received: 05/14/2021 04:43 PM Pathologist: Marlen Farris MD Specimen: Skin, right upper pinzon 10:58 AM [facility] DERMATOPATHOLOGY LABORATORY Final Diagnosis Specimen A. SKIN, right upper pinzon: SUPERFICIAL PORTIONS OF SQUAMOUS CELL CARCINOMA ARISING IN A SQUAMOUS CELL CARCINOMA IN SITU (C44.722) (see microscopic description) 10:58 AM [facility] DERMATOPATHOLOGY LABORATORY at 1058 ROOFING APPRENTICE Clinical History SK vs BCCA vs MM. Path # [id number]. 10:58 AM [facility] DERMATOPATHOLOGY LABORATORY Gross Description Specimen A: Received is one formalin filled container labeled with the patient's name and designated right upper pinzon. The specimen consists of a shave biopsy measuring [id number]. Jar 0. 10:58 AM [facility] DERMATOPATHOLOGY LABORATORY Microscopic Description Specimen A. SKIN, right upper pinzon: The epidermis shows parakeratosis, full thickness disorderly maturation of keratinocytes, mitoses at different levels, and dyskeratotic cells. Focal nests are present in the dermis. 10:58 AM [facility] DERMATOPATHOLOGY LABORATORY Disclaimer An external and internal positive and negative controls are appropriate for the histochemical, immunohistochemical and immunofluorescence stain(s) in this case (if any), except where stated explicitly. The performance characteristics of the stain(s) cited in this report were developed and its performance characteristic determined by the Dermatopathology Laboratory at [facility], directed by Dr. Joel Alejo. These tests need not be, and therefore are not, approved by the [place] Food and Drug Administration. The tests are used for clinical purposes. Billing Codes Specimen Charges Stain Charges 42241 1 10:58 AM [facility] DERMATOPATHOLOGY LABORATORY Embedded Images 10:58 AM [facility] DERMATOPATHOLOGY LABORATORY Pathology/Cytolog y TISSUE SPECIMEN FROM SKIN / Unknown 05/14/2021 05/14/2021 4:43 PM ROOFING APPRENTICE Jose Salvador MD LAB - PATHOLOGY/CYTOLOGY ORDER ADAM Final Result DERMATOPATHOLOGY LABORATORY [facility] - Department of Dermatology [facility] Medicine [address] [place] [address], [address] [phone] documented in this encounter Visit Diagnoses Not on filedocumented in this encounter Care Teams Deputy Sheriff Lieutenant Relationship Specialty Start Date End Date None, Physician PCP - General 08/17/24 documented as of this encounter
--- OUTSIDE RECORDS SUMMARY | 2024-11-05 14:49 | XMS_ITS | Clinical Summary ---
Author Organization [facility] Address [facility] [place] [address] Care Team Providers Care Behavioral Geneticist Name Role Phone Willy Rivera MD Primary Care Provider [phone] Allergies Active Allergy Reactions Criticality Noted Date Comments Acetaminophen-Codeine Unknown 07/30/2012 Codeine Unknown 05/24/2009 Gluten Meal Unknown 12/22/2012 Levofloxacin Unknown 05/05/2011 Morphine Unknown 05/24/2009 Moxifloxacin Unknown 05/29/2014 Naproxen Unknown 05/24/2009 Rofecoxib Unknown 05/24/2009 Medications vitamin C 1000 MG tablet Active Calcium-Vitamin D-Vitamin K 500-100-40 MG-UNT-MCG Chew Tab Active Cholecalciferol (VITAMIN D3) 25 MCG (1000 UT) Cap Ac tive Digestive Enzymes (ENZYME DIGEST) Cap 4 Active Ferrous Gluconate (IRON) 240 (27 Fe) MG Tab Active levothyroxine 25 MCG tablet 1 tablet (25 mcg total). 1 Active liothyronine 5 MCG Tab Take 2 tablets (10 mcg total) by mouth daily. 1 Active Melatonin 1 MG Cap Active Nutritional Supplements (DHEA) 15-50 MG Cap Active estradiol (ESTRACE VAGINAL) 0.1 MG/GM vaginal cream Active albuterol sulfate HFA 108 (90 Base) MCG/ACT inhalerIndication s:Mild intermittent asthma with acute exacerbation (HHS/HCC) Inhale 2 puffs into the lungs every 6 (six) hours as needed. 18 g 4 Active DHEA 10 MG Cap Take 10 mg by mouth daily. Active fluticasone-salme terol (ADVAIR DISKUS) 100-50 MCG/ACT inhaler Inhale 1 puff into the lungs 2 (two) times daily. 4 Active Multiple Vitamin (VITAMIN E/FOLIC ACID/B-6/B-12 OR) Ac tive Green Tea, Marj sinensis, (GREEN TEA 600) 600 MG Cap Active ferrous sulfate CR (GNP IRON) 45 MG tablet Take 1 tablet (140 mg total) by mouth every morning before breakfast. Active L-Glutathione Crystals Active Taurine (MAGNESIUM TAURATE 400 MG OR CAPS) Active Multi Minerals-Amino Acids (SV N-ACETYL CYSTEINE) Cap Active Pregnenolone Micronized (PREGNENOLONE OR) Ac tive probiotic (FLORAJEN3) Cap capsule Take 1 capsule by mouth 3 (three) times daily with meals. Active Active Problems Problem Noted Date Diagnosed Date Lumbar radiculopathy 08/17/2014 Hypothyroidism 08/17/2014 Arthralgia of shoulder 03/06/2014 Degeneration of intervertebral disc of cervical region 01/05/2014 Knee pain 12/19/2013 Celiac disease ([facility]/HCC) 12/22/2012 Acute bronchospasm 07/30/2012 Allergic rhinitis 07/30/2012 Neck pain 05/05/2011 Arm pain 05/24/2009 Resolved Problems Problem Noted Date Diagnosed Date Resolved Date Asthma ([facility]) 12/22/2012 03/10/2022 Asthma ([facility]) 12/22/2012 06/29/2023 Overview (03/12/2021): Last Assessment & [...] Types Packs/Day Years Used Date Smoking Tobacco: Former Cigarettes Smokeless Tobacco: Never Tobacco Cessation:Counseling Given: Not Answered Alcohol Use Standard Drinks/Week Comments Yes 0 (1 standard drink = 0.6 oz pur e alcohol) socailly PHQ-2 Answer Date Recorded Patient Health Questionnaire-2 Score 0 06/29/2023 Comments No Sex and Gender Information Value Date Recorded Sex Assigned at Female 05/09/2024 3:49 AM LARRIMAN HELPER Legal Sex Female 7:24 PM CDT Gender Identity Female 05/09/2024 3:49 AM LARRIMAN HELPER Sexual Orientation Straight 05/09/2024 3: 49 AM LARRIMAN HELPER Last Filed Vital Signs Vital Sign Reading Time Taken Comments Blood Pressure 129/62 05/09/2024 5:30 AM LARRIMAN HELPER Pulse 69 05/09/2024 5:30 AM LARRIMAN HELPER Temperature 36.2 C (97.2 F) 05/09/2024 5:30 AM LARRIMAN HELPER Respiratory Rate 18 05/09/2024 5:30 AM LARRIMAN HELPER Oxygen Saturation 98% 05/09/2024 5:30 AM LARRIMAN HELPER Inhaled Oxygen Concentration - - Weight 53.5 kg (118 lb) 05/09/2024 3:44 AM LARRIMAN HELPER Height 167.6 cm (5' 6) 05/09/2024 3:44 AM LARRIMAN HELPER Body Mass Index 19.05 05/09/2024 3:44 AM LARRIMAN HELPER Plan of Treatment Health Maintenance Due Date Last Done Comments Hepatitis C 06/07/1975 Pneumococcal Vaccine: 50+ Years (1 of 1 - PCV) 06/07/2007 Zoster Vaccines (1 of 2) 06/07/2007 Annual Medicare Wellness Visit 2022 COVID-19 Vaccine ( - season) 2023 PHQ-2 (Physician [place]) 03/23/2024 06/29/2023 Mammogram Screening 12/24/2025 12/25/2023, 08/14/2022, 12/14/2020, Additional history exists Colorectal Cancer Screening FIT-DNA (3 Years) 08/18/2026 08/19/2023, 08/19/2023 RSV Immunization or 60+ Years (1 - 1-dose 75+ series) 2032 DTaP, Tdap and Td Vaccines (2 - [...] 5:40 PM Narrative 12/25/2023 5:47 PM CDT [facility] [place] [address] EXAMINATION: MG SCREENING W TYESHA FERREIRA INDICATIONS: Screening TECHNIQUE: Digital full field CC [...] asymmetry or architectural distortion. No axillary adenopathy. Bennett Griffith MD MAMMO Final Result * COLOGUARD ([employer]) (08/19/2023 9:00 AM CDT) COLOGUARD RESULT Negative Negative [employer] (CLIA #:[id number]) Comment: NEGATIVE TEST RESULT. A negative Cologuard [...] screened with both Cologuard and colonoscopy. (Michele Demarco al, N Engl J Med 2014;370(14):4653-1485) The normal value (reference range) for this assay is negative. COLOGUARD RE-SCREENING RECOMMENDATION: Periodic colorectal cancer screening is an important part of preventive healthcare for asymptomatic individuals at average risk for colorectal cancer. Following a negative Cologuard result, the Canadian Cancer Society and U.S. Multi-Society Task Force screening guidelines recommend a Cologuard re-screening interval of 3 years. References: Canadian Cancer Society Guideline for Colorectal Cancer Screening: https://www.cancer.org/cancer/bgpuq-wcdsjt-eoscul/wjgivlgiz-yrusvvpio-gimkazt/ac s-rec ommendations.html.; Anselmo DK, Juan Jose CR, Alireza PowellK, Colorectal Cancer Screening: Recommendations for Physicians and Patients from the U.S. Multi-Society Task Force on Colorectal Cancer Screening , Am J Gastroenterology 2017; 112:8692-3515. TEST DESCRIPTION: Composite algorithmic analysis of stool [...] screened with both Cologuard and colonoscopy. (Michele Demarco al, N Engl J Med 2014;370(14):7059-2159.) Cologuard may produce a false negative or false positive result (no colorectal cancer or precancerous polyp present at colonoscopy follow up). A negative Cologuard test result does not guarantee the absence of CRC or advanced adenoma (pre-cancer). The current Cologuard screening interval is every 3 years. (Canadian Cancer Society and U.S. Multi-Society Task Force). Cologuard performance data in a 10,000 patient pivotal study using colonoscopy as the reference method can be accessed at the following location: www.[employer].Platypi/results. Additional description of the Cologuard test process, warnings and precautions can be found at www.colBeacon Powerrd.com. STOOL STOOL SPECIMEN / Unknown 08/19/2023 9:00 AM CDT 08/20/2023 9:48 AM CDT us Brendon Morales MD BODY FLUIDS AND STOOLS ORDERABLE S Final Result [employer] ([facility] [address]) [address] [facility] [place] [address], [employer] (CLIA #:[id number]) [address] [place] [address] * BONE DENSITY/DEXA (07/22/2022 10:33 AM CDT) [...] Interpreted By: Levar Nation, 07/22/2022 3:53 PM us Betito Darnell MD DEXA Final Result * COLONOSCOPY (06/26/2017) us Documents Scanned SCANNING Final Result [facility] from Last 3 Months or Most Recently Relevant to Health Maintenance Insurance MEDICARE AET Advance Directives Documents on File Type Date Recorded Patient Hot Walker Expl anation Advance Directives and Living Will 06/30/2017 POA Advance Directives and Living Will 06/30/2017 LIVING WILL Care Teams Behavioral Geneticist Relationship Specialty Start Date End Date Willy Rivera MD [address] [facility] [address] [place] [address] PCP - General INTERNAL MEDICINE 05/09/24
--- OUTSIDE RECORDS SUMMARY | 2024-11-05 14:50 | XMS_ITS | Encounter Summary ---
Author Organization [facility] Address [facility] [place] [address] Care Team Providers Care Senior Net Programmer Name Role Phone Mikal Guevara MD Primary Care Provider [phone] Chip Claire DO Primary Care Provider [place] Dyer [facility] Primary Care Provid er Willy Rivera MD Primary Care Provider [phone] Encounter Details Date Type Department Care Team (Late st Contact Info) Description 08/28/2018 Abstract [facility] CONVERSION [address] [place] [address] , Generic Conversion, Social History Tobacco Use Types Packs/Day Years Used Date Smoking Tobacco: Never Assessed Comments Unknown Sex and Gender Information Value Date Recorded Sex Assigned at Female 05/09/2024 3:49 AM BUSINESS PROCESS EXPERT Legal Sex Female 7:24 PM CDT Gender Identity Female 05/09/2024 3:49 AM BUSINESS PROCESS EXPERT Sexual Orientation Straight 05/09/2024 3: 49 AM BUSINESS PROCESS EXPERT documented as of this encounter Plan of Treatment Not on file documented as of this encounter Visit Diagnoses Not on filedocumented in this encounter Additional Health Concerns Infection Onset Date Last Indicated Resolved Time COVID-19 Rule Out 04/28/2020 04/28/2020 04/29/2020 3:56 PM BUSINESS PROCESS EXPERT COVID-19 Rule Out 12/08/2022 12/08/2022 12/08/2022 3:30 PM CDT documented as of this encounter Care Teams Senior Net Programmer Relationship Specialty Start Date End Date Mikal Guevara MD PCP - General 05/16/15 08/12/21 Chip Claire DO PCP - General FAMILY PRACTICE 08/13/21 06/26/23 [place] Dyer, [facility] [address] [place] [address] PCP - General Nurse Practitioner Family 06/27/2304/23 Willy Rivera MD [address] [facility] [address] [place] [address] PCP - General INTERNAL MEDICINE 05/09/24 documented as of this encounter
--- OUTSIDE RECORDS SUMMARY | 2024-11-05 14:50 | XMS_ITS | Clinical Summary ---
Author Organization [facility] Address [address] [place] [address] Care Team Providers Care Director Metabolism Name Role Phone Mikal Guevara MD Primary [...] on file Legal Sex Female 4:28 PM CRADLE PLACER Gender Identity Not on file Sexual Orientation [...] 11:40 AM CDT Height 167.6 cm (5' 6) 12/02/2021 11:40 AM CDT Body Mass Index 19.53 12/02/2021 11:40 AM CDT Plan of Treatment Health Maintenance Due Date Last Done Comments DTAP/TDAP/TD VACCINES (1 - Tdap) 1976 PNEUMOCOCCAL VACCINE 50+ YEA RS (1 of 2 - PCV) 1976 COLORECTAL SCREENING 2002 Colorectal Cancer Screening 2002 FIT-DNA Q 3 years 2002 FIT/FOBT Q 1 year 2002 Flex Sig/CT Colonography Q 5 years 2002 ZOSTER VACCINE (1 of 2) 06/07/2007 RSV VACCINE (60+ or ) (1 - Risk 60-74 years 1-dose series) 2017 BREAST CANCER SCREENING 12/14/2021 12/15/19 21, 12/14/2020, 04/28/2018 OSTEOPOROSIS SCREENING 07/03/2022 07/03/2017 INFLUENZA VACCINE (#1) 2024 Medical Devices Implanted Type Area Lacing Presser Device Identifier Shelf Expiration Date Model / Serial / Lot Hemostatic Surgiflo 8ml W/ Thrombin 2994 - Sna Implanted:Qty: 1 on 12/02/2021 by Reji Marroquin MD at [facility] Hemostatic N/A: Spine Lumbar [employer] 12/20/2022 [id number] / [id number] / [id number] Insurance AET[employer] OPEN CHOICE PPO RX [facility] Care Teams Director Metabolism Relationship Specialty Start Date End Date Mikal Guevara MD [address] [place] [address] PCP - General Family Practice 11/26/21
--- OUTSIDE RECORDS SUMMARY | 2024-11-05 14:50 | XMS_ITS | Encounter Summary ---
Author Organization [facility] Address [address] [place] [address] Care Team Providers Care Senior Software Development Manager Name Role Phone Mikal Guevara MD Primary Care Provider [phone] Chip Claire DO Primary Care Provider [place] Dyer [facility] Primary Care Provid er Willy Rivera MD Primary Care Provider [phone] Encounter Details Date Type Department Care Team (Late st Contact Info) Description 06/30/2017 Abstract [facility] Conversion , Generic Conversion, Social History Tobacco Use Types Packs/Day Years Used Date Smoking Tobacco: Never Assessed Comments Unknown Sex and Gender Information Value Date Recorded Sex Assigned at Female 05/09/2024 3:49 AM QUALITY IMPROVEMENT SPECIALIST Legal Sex Female 7:24 PM CDT Gender Identity Female 05/09/2024 3:49 AM QUALITY IMPROVEMENT SPECIALIST Sexual Orientation Straight 05/09/2024 3: 49 AM QUALITY IMPROVEMENT SPECIALIST documented as of this encounter Plan of Treatment Not on file documented as of this encounter Visit Diagnoses Not on filedocumented in this encounter Additional Health Concerns Infection Onset Date Last Indicated Resolved Time COVID-19 Rule Out 04/28/2020 04/28/2020 04/29/2020 3:56 PM QUALITY IMPROVEMENT SPECIALIST COVID-19 Rule Out 12/08/2022 12/08/2022 12/08/2022 3:30 PM CDT documented as of this encounter Care Teams Senior Software Development Manager Relationship Specialty Start Date End Date Mikal Guevara MD PCP - General 05/16/15 08/12/21 Chip Claire DO PCP - General FAMILY PRACTICE 08/13/21 06/26/23 [place] Dyer, [facility] [address] [place] [address] PCP - General Nurse Practitioner Family 06/27/2304/23 Willy Rivera MD [address] [facility] [address] [place] [address] PCP - General INTERNAL MEDICINE 05/09/24 documented as of this encounter
--- OUTSIDE RECORDS SUMMARY | 2024-11-05 14:50 | XMS_ITS | Patient Health Record ---
Author Organization [facility] Address [address] [facility] [facility] [address] [place] [address] Support Name Relationship Address Phone Chastity Rock Guarantor Unknown [phone] Reason For Referral No Information Medications Medication SIG (Take, Route, Frequency, Duration) Notes Start Date End Date Status XIFAXAN 550 MG TABLET *please review for potential update for e-prescription and drug interaction check* XIFAXAN 550 MG TABLET 04/14/2017 Active DICYCLOMINE 10 MG CAPSULE *please review for potential update for e-prescription and drug interaction check* DICYCLOMINE 10 MG CAPSULE 12/26/2016 Active Plan Of Treatment No Information Insurance Providers Payer Name Payer Address Payer Phone Subscriber Number Group Number Insured Name Patient Relationship to Insured Coverage Start Date Coverage End Date [employer] [address] [place], [place] [id number] Chastity Rock Self - patient is the insured Medical (General) History Surgical History Surgery Date(Month/Year) delivery (01862):x 2 Carpal tunnel surgery (15697) Cholecystectomy Dilation and curettage Hysterectomy Nsl/sins ndsc frnt tiss rmvl (28948) Colonoscopy 03/23/2012 Egd/endoscopy 03/23/2012 Colonoscopy 03/23/2006 Egd/endoscopy 03/23/2006 Egd/endoscopy 03/23/2008 Egd/endoscopy:Gastritis, eso phageal polyp, removed, small hiatal hernia. Path Duodenal bx neg. Reactive gastropathy. Benign squamous papilloma (esophagus) 04/02/2015 Egd/endoscopy:EUS- Olea Normal. 02/26 Endoscopic pancreatoscopy (4 5230):Aliperti-- Pancreatic parenchymal abnormalities c/o hyperechoic strands and hypoechoic foci in entire pancreas, without strictures or cystic lesions. Findings abnormal, but not enough for dx of CP. 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 Stents removed 01/21/2017 01/19/2017
--- OUTSIDE RECORDS SUMMARY | 2024-11-05 14:50 | XMS_ITS | Encounter Summary ---
Author Organization [facility] Address [address] [place] [address] Care Team Providers Care Coldfusion Name Role Phone Mikal Guevara MD Primary Care Provider [phone] Chip Claire DO Primary Care Provider [facility] Primary Care Provid er Willy Rivera MD Primary Care Provider [phone] Encounter Details Date Type Department Care Team (Late st Contact Info) Description 01/24/2017 Abstract [facility] [place], [place] [id number] , Generic Conversion, Social History Tobacco Use Types Packs/Day Years Used Date Smoking Tobacco: Never Assessed Comments Unknown Sex and Gender Information Value Date Recorded Sex Assigned at Female 05/09/2024 3:49 AM WATER POLLUTION CONTROL TECHNICIAN Legal Sex Female 7:24 PM CDT Gender Identity Female 05/09/2024 3:49 AM WATER POLLUTION CONTROL TECHNICIAN Sexual Orientation Straight 05/09/2024 3: 49 AM WATER POLLUTION CONTROL TECHNICIAN documented as of this encounter Plan of Treatment Not on file documented as of this encounter Visit Diagnoses Not on filedocumented in this encounter Additional Health Concerns Infection Onset Date Last Indicated Resolved Time COVID-19 Rule Out 04/28/2020 04/28/2020 04/29/2020 3:56 PM WATER POLLUTION CONTROL TECHNICIAN COVID-19 Rule Out 12/08/2022 12/08/2022 12/08/2022 3:30 PM CDT documented as of this encounter Care Teams Coldfusion Relationship Specialty Start Date End Date Mikal Guevara MD PCP - General 05/16/15 08/12/21 Chip Claire DO PCP - General FAMILY PRACTICE 08/13/21 06/26/23 [place] Dyer, [facility] [address] [place] [address] PCP - General Nurse Practitioner Family 06/27/2304/23 Willy Rivera MD [address] [facility] [place] [address] PCP - General INTERNAL MEDICINE 05/09/24 documented as of this encounter
--- OUTSIDE RECORDS SUMMARY | 2024-11-05 14:50 | XMS_ITS | Clinical Summary ---
Author Organization [facility] at [facility] Address [address] [place] [address] Care Team Providers Care Military Administrative Technician Name Role Phone Donnell Mujica MD Unavailable [phone] Willy Rivera MD Primary Care Provider [phone] Allergies Active Allergy Reactions Criticality Noted Date [...] 1 tablet (25 mcg total) by mouth ripening room hand before breakfast 3 Active lactobacillus comb no.10 (Probiotic) 20 billion cell capsule take 1 capsule by oral route every other day Active acetylcysteine 500 mg capsule take 1 capsule [...] (5 mcg total) by mouth daily Active gentamicin (GARAMYCIN) 0.1 % ointment Apply topically Act anshu L. acidophilus/Bif id. animalis 32 billion cell capsule Take 1 capsule by mouth 3 times daily Active prednisoLONE acetate (PRED FORTE) 1 % ophthalmic suspension Administer 2 drops into both eyes Active olopatadine-mom etasone (Ryaltris) 665-25 mcg/spray spray,non-aeros ol Lincoln 1 spray twice a day by intranasal route. Active estrogens-methy lTESTOSTERone (EEMT,COVARYX) 1.25-2.5 mg per tablet Active sodium, potassium & mag sulfates (SUPREP BOWEL KIT) 17.5-3.13-1.6 gram recon soln Acti ve azithromycin (ZITHROMAX) 250 mg tabletIndicatio ns:Acute cough Take 2 tablets the first day, then 1 tablet daily for 4 days. 6 tablet 5 Active Additional Information Patient not taking.Reported on 09/06/2024 benzonatate (TESSALON) 200 mg capsuleIndicati ons:Acute cough Take 1 capsule (200 mg total) by mouth 3 (three) times a day as needed for cough 30 capsule 5 Active Additional Information Patient not taking.Reported on 09/06/2024 cetirizine (ZyrTEC) 10 mg tablet Take 1 tablet (10 mg total) by mouth daily 30 tablet 5 07/29/19 26 Active Active Problems Problem Noted Date Diagnosed Date Acute cough 05/10/2024 Assessment & Plan (05/17/2024 2:40 PM FRONT COUNTER CLERK): The patient has improved significantly over the last 1 week and will complete her prednisone taper in 3 days and she is off antibiotics. She has a Breo inhaler to use p.r.n.. She will follow up with Dr. Thomas in 6 months. Assessment & Plan (05/10/2024 2:28 PM FRONT COUNTER CLERK): The patient developed a respiratory infection several weeks ago and has not recovered despite 10 days of amoxicillin and she is on her 2nd course of prednisone and she does have an albuterol nebulizer that she is using at home now. Yesterday's chest x-ray as listed above. I will add a Z-Brain and I did recommend that she start using her Advair 100/51 puff b.i.d. again. She will continue use albuterol in the nebulizer q.i.d. p.r.n.. I will also give her Aleah Hanna and she will complete the prednisone taper and follow up with me in 1 week. Primary osteoarthritis of right hip 09/09/2023 Primary osteoarthritis of left knee 09/09/2023 Shortness of breath 10/07/2022 Assessment & Plan (03/19/2023 3:36 PM FRONT COUNTER CLERK): The patient has been doing very well [...] 12/22/2012 Assessment & Plan (05/18/2020 8:51 AM FRONT COUNTER CLERK): The patient has a history of asthma [...] Resolved Date BYRD (dyspnea on exertion) 06/15/2020 Encounters Date Type Department Care Team Description 09/06/2024 3:00 PM CDT Office Visit [facility] [address] [address] Leanna Thomas MD Chronic cough (Primary Dx); Recurrent sinusitis 08/08/2024 2:30 PM CDT Office Visit [facility] [address] [address] Leanna Thomas MD Chronic cough (Primary Dx); Recurrent sinusitis from Last 3 Months Immunizations Immunization Administration Dates Next Due Tdap 07/20/2023 Surgical History Surgery Date Site/Laterality Comments KNEE ARTHROSCOPY Left Knee Arthroscopy - (Added by TW Conv) ACL [place] ARTHRD ANT INTERBODY MIN DSC CRV BELOW C2 Cervical Vertebral Fusion - (Added by TW Conv) C 3-4 ACDF [place] DELIVERY ONLY Section - (Added by TW Conv) [place] DILATION & CURETTAGE DX&/THER NONOBSTETRIC Dilation And Curettage - (Added by TW Conv) [place] CHOLECYSTECTOMY Cholecystectomy - (Added by TW Conv) SINUS SURGERY Sinus Surgery - (Added by TW Conv) X2 NASAL SEPTUM SURGERY Nasal Septal Deviation Repair - (Added by TW Conv) [place] EXCISION NASAL POLYP SIMPLE Simple Excision Of Nasal Polyp - (Added by TW Conv) [place] NEUROPLASTY &/TRANSPOS MEDIAN NRV CARPAL TUNNE Right Neuroplasty Decompression Median Nerve At Carpal Tunnel - (Added by TW Conv) [place] TOTAL ABDOMINAL HYSTERECT W/WO RMVL TUBE OVARY Hysterectomy - (Added by TW Conv) SECTION SPINE SURGERY LUMBAR NO HARDWARE X2 CERVICAL FUSION HARDWARE PRESENT HYSTERECTOMY KNEE SURGERY Right MENICUS ERCP 03/23/2016 - 03/22/2017 FOOT SURGERY Left HARDWARE LATER REMOVED CATARACT EXTRACTION W/ INTRAOCULAR LENS IMPLANT Bilateral Medical History Medical History Date Comments Ileus (HCC) Ileus - (Added b y TW Conv) WHEN HAD PANCREATITIS IN PAST [...] making you feel afraid or unsafe? Denies 07/28/2024 Comments No Sex and Gender Information Value Date Recorded Sex Assigned at Not on file Legal Sex Female 5:18 AM FRONT COUNTER CLERK Gender Identity Not on file Sexual Orientation Not on file Obstetrics History Last Filed Vital Signs Vital Sign Reading Time Taken Comments Blood Pressure 122/77 09/06/2024 3:09 PM CDT Pulse 65 09/06/2024 3:09 PM CDT Temperature 36.6 C (97.8 F) 09/06/2024 3:09 PM CDT Respiratory Rate 18 09/06/2024 3:09 PM CDT Oxygen Saturation 99% 09/06/2024 3:09 PM CDT Inhaled Oxygen Concentration - - Weight 55.3 kg (121 lb 14.4 oz) 09/06/2024 3:09 PM CDT Height 167.6 cm (5' 6) 09/06/2024 3:09 PM CDT Body Mass Index 19.68 09/06/2024 3:09 PM CDT Plan of Treatment Health Maintenance Due Date Last Done Comments Colon Cancer Screening-Colonoscopy 1955 Depression Screening 1955 Hepatitis C Screening 1955 Hepatitis B Screening 06/07/1975 Pneumococcal vaccine 65+ (1 of 2 - PCV) 1976 Zoster Vaccine (1 of 2) 06/07/2007 Well Visit 65+ 2022 Osteoporosis Screening-Bone Density Scan 07/22/2024 07/22/2022, 07/03/2017, 07/03/2017 Fall Risk Assessment 09/21/2024 09/22/2023 Influenza Vaccine (#1) 2024 Breast Cancer Screening-Mammogram 12/24/2024 12/25/2023, 12/25/2023, 08/14/2022, Additional history exists DTaP/Tdap/Td Vaccine (2 - Td or Tdap) 07/19/2033 07/20/2023 Medical Devices Implanted Type Area Casing Finisher And Stuffer Device Identifier Shelf Expiration Date Model / Serial / Lot Cervical And Lumbar Surgery Hardware Present N/A: Cervical-Denae mbar Spine [employer]/C R Bard Mesh Surgical Inguinal Hernia Synthetic Patch 3dmax 5x7in [id number] - [id number] Implanted:Qty: 1 on 09/25/2023 by Michael Simmons MD at [facility] Left: Abdomen [employer]/C R Bard [id number] 01/18/2028 [id number] / / [id number] Procedures Procedure Name Priority Date/Time Associated Diagnosis [...] Manny Galicia D.O. BW: QUINTEN Report ID: [id number] Reading Location: [id number] [EOD] Narrative 07/03/2017 10:37 AM CDT EXAM DESCRIPTION: Bone Density Hip/Spine (STD) COMPLETED DATE/TIME: 07/03/2017 9:32 am REASON FOR STUDY: 62 y/o year old F with given history of screening. Casing Finisher And Stuffer/Model: NodeFly A (S/N [id number]) CLINICAL INFORMATION: Current height: 66.5 inches Maximum [...] old F with given history of screening. Casing Finisher And Stuffer/Model: 9DIAMOND Horizon A (S/N [id number]) CLINICAL INFORMATION: Current height: 66.5 inches Maximum [...] Manny Galicia D.O. BW: QUINTEN Report ID: [id number] Reading Location: [id number] [EOD] Betito Dickerson MD IMG DXA PROCEDURES Final Re sult from Last 3 Months or Most Recently Relevant to Health Maintenance Insurance [employer] MEDICARE Care Teams Military Administrative Technician Relationship Specialty Start Date End Date Willy Rivera MD [phone] [address] PCP - General Internal Medicine 09/09/23 Donnell Mujica MD [address] [place] [address] [address] Consulting Physician Cardiovascular Disease 09/09/23
[2024-11-05 14:58] VITALS: BP 109/75; PULSE 73; RESP 18; TEMP 36.5; O2SAT 100
[2024-11-05 15:24] LABS: EDCOVIDSCREEN Negative (Negative); EDINFLUASCREEN Negative (Negative); EDINFLUBSCREEN Negative (Negative)
--- NOTE | 2024-11-05 15:30 | ED_ITS ---
HPI - URI/Sore Throat General Chief Complaint: Upper Respiratory Infection Stated Complaint: Wheezing/cough/sinus Time Seen by Provider: 11/05/24 15:15 Source: patient and RN notes reviewed Mode of arrival: ambulatory Limitations: no limitations History of Present Illness HPI Narrative: 69-year-old female presents Express Care complaining of upper respiratory symptoms for approximately 2 weeks now. Patient's recently seen by her ENT and was prescribed cefdinir for sinus infection. Patient is on her last day of cefdinir and she says she has continued to get worsening symptoms. Patient reports sinus pressure, congestion, nasal drainage, dry and nonproductive cough. Patient denies any chest pain shortness of breath. Patient has also been using nasal spray, sinus rinses, and using albuterol inhaler/nebulizer to help with symptoms. Patient denies any fevers body aches, chills, nausea vomiting, diarrhea, or any other symptoms. Patient in a nonsmoker. Related Data Home Medications ?Medication ?Instructions ?Recorded ?Confirmed ?Last Taken ?Type liothyronine 5 mcg tablet mcg 05/01/24 Unknown History vitamin E 100 unit/0.25 mL oral unit 05/01/24 Unknown History drops Testosterone TRIT 1 tablet tablet mg sublingual #1 tablet 11/05/24 Unknown History ascorbate calcium (vitamin C) 500 500 mg PO DAILY 11/05/24 Unknown History mg tablet cholecalciferol (vitamin D3) 10 5 mcg PO DAILY 11/05/24 Unknown History mcg/0.25 mL oral drops ferrous sulfate 325 mg (65 mg 325 mg PO DAILY 11/05/24 Unknown History iron) tablet (Feosol) levothyroxine 37.5 mcg capsule 37.5 mcg PO DAILY 11/05/24 Unknown History (Tirosint) magnesium amino acid chelate 100 mg PO 11/05/24 Unknown History mg tablet melatonin 10 mg capsule 60 mg PO DAILY 11/05/24 Unknown History bksrejae-ydkdnhk-ran-iron 3 tablet PO 11/05/24 Unknown History mg-folic 200 mcg-phytosterol 400 mg tablet prasterone (DHEA) 25 mg tablet 25 mg PO DAILY 11/05/24 Unknown History (DHEA) zinc 15 mg tablet 15 mg PO DAILY 11/05/24 Unknown History Allergies Allergy/AdvReac Type Severity Reaction Status Date / Time morphine Allergy Mild Unknown Verified 11/05/24 15:13 codeine Allergy Palpitation Verified 11/05/24 14:59 s gluten AdvReac Mild Abdominal Verified 11/05/24 14:59 Pain Review of Systems Review of Systems: CONSTITUTIONAL: Denies fever, chills, or sweats. EYES: Denies visual changes, redness, or discharge. ENT: Denies rhinorrhea, sore throat, or otalgia. Positive for sinus pressure and congestion. CARDIOVASCULAR: Denies chest pain, palpitations, or edema. RESPIRATORY: Positive for cough. Negative for wheezing or Dyspnea. GASTROINTESTINAL: Denies abdominal pain, nausea, vomiting, or diarrhea. GENITOURINARY: Denies dysuria or hematuria. SKIN: Denies rash or itching. MUSCULOSKELETAL: Denies back pain, joint pain, or myalgia. NEUROLOGIC: Denies headache, numbness, or weakness. PSYCHIATRIC: Denies anxiety or depression. All other systems reviewed are negative, except as documented in HPI. PMFSH Comments At the time of my signature, I reviewed and agree with the nursing past medical, surgical, social, and family history. There is no relevant family history pertinent to the patient complaint. Exam Narrative: GENERAL: This is a well-nourished, well-developed adult, in no apparent distress. They are non ill-appearing, nontoxic appearing. HEAD: normocephalic, atraumatic. EYES: Sclera clear/white. Conjunctiva normal. Vision is grossly intact. Extraocular movements intact EARS: External ears normal, auditory canals clear and without drainage, TMs normal without perforation. Hearing grossly intact. NOSE: External nose normal with no obvious nasal discharge, nasal turbinates erythematous, no rhinorrhea. It is maxillary sinus tenderness to palpation. THROAT: Mucous membranes moist, posterior pharynx boggy without erythema. No exudate.. Uvula midline. Postnasal drip present. NECK: Neck supple, non-tender without lymphadenopathy, masses or thyromegaly. CARDIOVASCULAR: Regular rate and rhythm without murmurs, gallops, or rubs. RESPIRATORY: Inspiratory wheezes throughout.. Breath sounds equal bilaterally. No rales, or rhonchi. SKIN: warm, Dry, intact with no suspicious lesions or rash, good texture and turgor. NEURO: awake, alert, and oriented to person, place and time. There were no obvious focal neurologic abnormalities. EXTREMITIES: No joint tenderness, effusion, or edema noted. Course Course Emergency Course: Portions of this record may have been created with voice recognition software Level of Care: Express Care Visit Vital Signs Vital signs: Vital Signs Temperature 97.7 F 11/05/24 14:58 Pulse Rate 73 11/05/24 14:58 Respiratory Rate 18 11/05/24 14:58 Blood Pressure 109/75 11/05/24 14:58 Pulse Oximetry 100 11/05/24 14:58 Oxygen Delivery Room Air 11/05/24 14:58 Temperature 97.7 F 11/05/24 14:58 Pulse Rate 73 11/05/24 14:58 Respiratory Rate 18 11/05/24 14:58 Blood Pressure 109/75 11/05/24 14:58 Pulse Oximetry 100 11/05/24 14:58 Oxygen Delivery Room Air 11/05/24 14:58 Reviewed MDM - URI/Sore Throat MDM Narrative Medical decision making narrative: Rapid COVID in flu were negative. Wheezing heard throughout patient's lungs. Patient is in no respiratory distress. Obtain chest x-ray given length of symptoms. Offered patient nebulizer treatment she says she will do on when she gets home. Chest x-ray shows no acute cardiopulmonary findings. Patient likely still has a sinus infection. Likely patient has treatment failure, will prescribe levofloxacin. Will also prescribe prednisone for the wheezing. Discussed physical exam findings. Advised supportive measures and signs/symptoms to go to the ER. Pt is appropriate for outpt treatment and f/u. Differential Diagnosis Differential diagnosis: Likely upper respiratory infection, sinusitis, viral infection, bronchitis, pharyngitis and other (Pneumonia, asthma, COPD) Lab Data Attestation: I reviewed the patient's lab results. Labs: Lab Results 11/05/24 Range/Units 15:22 POC Influenza A Ag Negative (Negative) POC Influenza B Ag Negative (Negative) POC SARS CoV-2 Ag Negative (Negative) Imaging Data Radiologist's impression: ITS Impressions Chest X-Ray 11/05/24 16:17 IMPRESSION: No acute cardiopulmonary process. Critical Care Time Critical Care Time Critical Care Time: No Discharge Plan Discharge Clinical Impression: Bronchitis Sinusitis Qualifiers: Sinusitis location: unspecified location Chronicity: acute Recurrence: non- recurrent Qualified Code(s): J01.90 - Acute sinusitis, unspecified Patient Disposition: Home Condition: Stable Instructions: Antibiotic Form, Sinusitis (ED) Additional Instructions: Your chest x-ray was negative for any acute cardiopulmonary findings. Use your albuterol inhaler as directed at home. Take the prednisone as directed. Take the antibiotics as directed and complete the course even if you start to feel better. You may use a Neti pot saline rinse 3 times a day with lukewarm distilled water Continue to take Tylenol or Motrin for pain. Use a humidifier or vaporizer at night. Drink plenty of water. 8-10 glasses per day. Use flonase 2 times per day for 5 days then as needed Take mucinex 2 times per day and be sure to take with 8oz of water. Follow up with Primary provider in 3-5 days Please go to the ER if he develops any difficulty breathing, worsening symptoms, or any other concerns Patient Language: Armenian Prescriptions: New prednisone 20 mg tablet 40 mg PO DAILY 5 Days Qty: 10 0RF levofloxacin 750 mg tablet 750 mg PO DAILY 7 Days Qty: 7 0RF No Action vitamin E 100 unit/0.25 mL drops liothyronine 5 mcg tablet albuterol sulfate [Ventolin HFA] 90 mcg/actuation HFA aerosol inhaler 2 puff inhalation QID PRN (Reason: shortness of breath or wheezing) Qty: 8.5 0RF ferrous sulfate [Feosol] 325 mg (65 mg iron) tablet 325 mg PO DAILY [id number] 3-200-400 mg-mcg-mg tablet PO prasterone (DHEA) [DHEA] 25 mg tablet 25 mg PO DAILY magnesium amino acid chelate 100 mg tablet PO melatonin 10 mg capsule 60 mg PO DAILY ascorbate calcium (vitamin C) 500 mg tablet 500 mg PO DAILY cholecalciferol (vitamin D3) 10 mcg/0.25 mL drops 5 mcg PO DAILY zinc 15 mg tablet 15 mg PO DAILY Testosterone TRIT 1 tablet tablet sublingual Qty: 1 Tirosint 37.5 mcg capsule 37.5 mcg PO DAILY Follow-up/Referrals: UNKNOWN,DOCTOR [Primary Care Provider] - Time of Disposition: 16:40
== END 2024-11-05 16:45 | disposition home or self-care (01) ==
DX: J40 Bronchitis, not specified as acute or chronic (principal); J01.90 Acute sinusitis, unspecified; Z20.822 Contact with and (suspected) exposure to COVID-19
CPT/HCPCS: 71046; 87426; 87804; 99213; G0463